=== PATIENT | female | born 1970 | race Caucasian/White ===

== ENCOUNTER 2021-10-07 12:09 | Emergency (ER) | payer SELFPAY ==
[2021-10-07 12:13] VITALS: PULSE 102; RESP 20; TEMP 36.6; O2SAT 95; BMI 32.3
--- NOTE | 2021-10-07 12:21 | XRR_ITS ---
PROCEDURE INFORMATION: Exam: XR Chest Exam date and time: 10/07/2021 12:33 PM Age: 51 years old Clinical indication: Pain; Angina pectoris; Additional info: Chest pain TECHNIQUE: Imaging protocol: XR of the chest. Views: 1 view. Total images: 1 COMPARISON: No relevant prior studies available. FINDINGS: Lungs: Unremarkable. No consolidation. Pleural spaces: Unremarkable. No pleural effusion. No pneumothorax. Heart/Mediastinum: Unremarkable. No cardiomegaly. Bones/joints: Unremarkable. Soft tissues: Small round density projecting just beneath the brittney felt to represent artifact external to the patient. A small foreign body/BB cannot be excluded. XR/XR chest 1V portable [id number] IMPRESSION: 1. Small round density projecting just beneath the brittney felt to represent artifact external to the patient. A small foreign body/BB cannot be excluded. 2. No acute cardiopulmonary process.
--- NOTE | 2021-10-07 12:22 | ECG_ITS ---
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 Measurements Intervals [place] Rate: 103 P: 60 KS: 135 QRS: 38 QRSD: 83 T: 41 QT: 336 QTc: 441 Interpretive Statements SINUS TACHYCARDIA POSSIBLE LEFT ATRIAL ENLARGEMENT [-0.1mV P-WAVE IN V1/V2] POSSIBLE RIGHT VENTRICULAR CONDUCTION DELAY [RSR (QR) IN V1/V2] ABNORMAL RHYTHM ECG No previous ECG available for comparison Electronically Signed On 10-07-2021 16:16:23 CDT by Kane Denis M.D. [id number]
--- NOTE | 2021-10-07 14:22 | ECG_ITS ---
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 Measurements Intervals [place] Rate: 75 P: 66 GA: 150 QRS: 40 QRSD: 82 T: 49 QT: 372 QTc: 417 Interpretive Statements SINUS RHYTHM Compared to ECG 10/07/2021 12:30:57 Sinus tachycardia no longer present Electronically Signed On 10-07-2021 16:16:55 CDT by Kane Denis M.D. [id number]
[2021-10-07 14:35] LABS: Basophils # 0.1 10^3/uL (0.0-0.1); Basophils % 0.6 %; Eosinophils # 0.2 10^3/uL (0.0-0.8); Eosinophils % 1.8 %; Hematocrit 48.1 % (37.0-47.0); Hemoglobin 15.6 g/dL (11.5-15.3); Lymphocytes # 2.8 10^3/uL (0.8-4.8); Lymphocytes % 21.2 %; Mean Corpuscular HGB Conc 32.4 g/dL (30.0-36.0); Mean Corpuscular Hemoglobin 31.8 pg (28.0-34.0); Mean Corpuscular Volume 98.2 fl (81-99); Mean Platelet Volume 10.1 fL (7.4-10.4); Monocytes # 1.1 10^3/uL (0.2-0.9); Neutrophils # 8.89 10^3/uL (1.8-7.7); Neutrophils % 68.1 %; Nucleated Red Blood Cells % 0 %; Platelet Count 418 10^3/cmm (130-400); Red Cell Distribution Width 12.8 % (12.1-15.1); White Blood Count 13.1 10^3/uL (4.0-10.0)
[2021-10-07 14:47] LABS: Protein Urine Neg (Negative); Urine Appearance Cloudy (CLEAR); Urine Color Amber (Yellow); pH Urine 5 (5-7)
--- NOTE | 2021-10-07 14:47 | CTR_ITS ---
PROCEDURE INFORMATION: Exam: CT Abdomen And Pelvis Without Contrast Exam date and time: 10/07/2021 3:08 PM Age: 51 years old Clinical indication: Abdominal pain; Epigastric; Prior surgery; Surgery type: Tubal , gb; Additional info: Epigastric pain x 4 days. Loss of appetite. TECHNIQUE: Imaging protocol: Computed tomography of the abdomen and pelvis without contrast. Radiation optimization: All CT scans at this facility use at least one of these dose optimization techniques: automated exposure control; mA and/or kV adjustment per patient size (includes targeted exams where dose is matched to clinical indication); or iterative reconstruction. COMPARISON: CR XR chest 1V portable [id number] 10/07/2021 12:33 PM RADIATION DOSE METRICS: Total DLP (mGy-cm): 1803.34 FINDINGS: Lungs: Linear scarring-atelectasis both lung bases. Diaphragm: Probable tiny hiatal hernia. Mild distal esophageal wall thickening. This may represent mild esophagitis. Correlation with esophagram/upper GI or endoscopy may be helpful. Liver: No obvious cirrhosis. Calcified hepatic granuloma. Gallbladder and bile ducts: Cholecystectomy clips. No abnormal bile duct dilatation. Pancreas: Normal. No ductal dilation. Spleen: Normal size.. Adrenal glands: Normal. No mass. Kidneys and ureters: No obstructing calculus. No hydronephrosis. Stomach and bowel: Small amount of fecal retention. No obvious bowel dilatation, pneumatosis or suspicious bowel wall thickening however assessment is limited due to lack of contrast. Colonic diverticulosis. Appendix: Normal appendix. Intraperitoneal space: Unremarkable. No free air. No significant fluid collection. Vasculature: No abdominal aortic aneurysm. Lymph nodes: No enlarged lymph nodes. Urinary bladder: Unremarkable as visualized. Reproductive: Unremarkable as visualized. Bones/joints: There is grade 1 L4-L5 spondylolisthesis with moderate-severe disc space loss and regional facet arthropathy. Although this finding is probably chronic, clinical correlation/comparison prior study may be helpful. Moderate L5-S1 disc degeneration is also present. Soft tissues: No acute findings. CT/CT abdomen pelvis wo con [id number] IMPRESSION: 1. Esophageal findings as above. 2. Vertebral findings as above. 3. Colonic diverticulosis without diverticulitis or other acute bowel findings. Somewhat limited exam due to lack of contrast.
[2021-10-07 14:48] LABS: Bilirubin Urine Neg (Negative); Blood Urine 2+ (Negative); Glucose Urine UA Norm (Normal); Ketones Urine 1+ (Negative); Leukocyte Esterase Urine 1+ (Negative); Nitrate Urine Positive (Negative); Urobilinogen Urine 1 mg/dL (Negative)
[2021-10-07 14:49] LABS: Add Urine Culture? Yes; Add Urine Microscopic? YES; Bacteria Urine 4+ /hpf; RBC Urine 0-4 /hpf (0-2); Squamous Epithelial Cell Urine 15-25 /hpf (0-5)
--- NOTE | 2021-10-07 14:49 | W.ED.ABDPA2 ---
HPI - Abdominal Pain General: Chief Complaint: Abdominal Pain Stated Complaint: CP Time Seen by Provider: 10/07/21 14:22 Source: patient Mode of arrival: ambulatory Limitations: no limitations History of Present Illness: This patient presents to our emergency department by private vehicle. She states she is here because of persistent upper abdominal pain. She states that pain has been present approximately 5 days but she does not like coming to the hospital so therefore the delay. She states that she noted the increasing pain after eating pizza as best she can recall. She states that she has been unsuccessful in eating any solid food. She states she is attempted to drink some Dr. Peppers but she cannot tolerate that and throws it up. She states she has been sipping on some Sprite which she tolerates a bit more successfully. She is having any chest pain or shortness of breath per se but the pain is predominantly in her epigastric region and seems to be right behind her lower sternum. It does not seem to radiate. Is not ripping in tearing but just but steady boring type of uncomfortable pain. She states that she is had looser stools than normal but no blood in her stools. There is a question whether the stools are darker than usual. She does not drink alcohol but does smoke tobacco. She does have a history of gastroesophageal reflux and takes Protonix on a periodic basis. She denies any known exposure to infectious disease. She denies any fevers or chills. No history of cardiac disease that she is aware of. She does not take nonsteroidals. No history of similar symptoms or if issues with dysphagia or swallowing difficulties. MD elicited complaint: abdominal pain Quality: aching Radiation: none Migration to: no migration Exacerbating factors: eating Associated Symptoms: Reports change in bowel habits and vomiting; Denies chills, coffee ground emesis, dysuria, fever(s), hematochezia and hematemesis Review of Systems Const: Denies: fever(s), chills or body aches Eyes: Denies: change in vision or blurry vision ENMT: Denies: throat pain or odynophagia Card: Denies: chest pain, palpitations or irregular heart rhythm Resp: Denies: dyspnea, productive cough or non-productive cough GI: Reports: abdominal pain, vomiting and change in bowel habits; Denies: hematemesis, coffee ground emesis or hematochezia : Denies: flank pain, difficulty voiding, dysuria or urinary frequency Musc: Denies: neck pain, back pain, extremity pain or extremity swelling Skin/Breast: Denies: rash or pruritus Neuro: Denies: headache(s), numbness in extremities or weakness in extremities Lorenzo/Lymph: Denies: easy bruising or easy bleeding Physical Exam Narrative: EXAM NARRATIVE: Since makes good eye contact she is alert and in no acute distress and appears to be comfortable. Const: COMMON NORMALS: no acute distress, patient oriented x3 and alert GENERAL APPEARANCE: cooperative and comfortable NUTRITIONAL APPEARANCE: overweight HENMT: COMMON NORMALS: normocephalic, Normal nasal mucous membranes and turbinates present, moist oral mucous membranes and oropharynx normal HEAD & SCALP: normocephalic NOSE: Normal nasal mucous membranes and turbinates present Eye: COMMON NORMALS: Equal, round and reactive pupils present, EOMs intact bilaterally and conjunctivae normal CONJUNCTIVA: Yes conjunctivae normal PUPIL: Yes Equal, round and reactive pupils present Neck/C-Spine: COMMON NORMALS: full ROM, no lymphadenopathy, supple, no meningeal signs and no JVD Chest: COMMONS NORMALS: normal inspection of the chest and normal palpation of entire chest wall Resp: COMMON NORMALS: normal respiratory effort, No retractions, No use of accessory muscles, clear to auscultation bilaterally and percussion normal AUSCULTATION: clear to auscultation bilaterally PERCUSSION: percussion normal Cardio: COMMON NORMALS: no JVD, regular rate, regular rhythm, No murmurs present (Cardio) and Peripheral pulses 2+ throughout RATE: regular rate RHYTHM: regular rhythm PERIPHERAL PULSES: Peripheral pulses 2+ throughout GI: COMMON NORMALS: No hepatosplenomegaly present, no masses and no bruits PALPATION: Yes No hepatosplenomegaly present OTHER: Abdominal examination is remarkable for tenderness in the very proximal epigastric subxiphoid region. There is no rebound or guarding. There is minimal left upper quadrant tenderness. No other masses tenderness etc. : COMMON NORMALS: Yes no CVA tenderness BLADDER/KIDNEY EXAM: Yes no CVA tenderness Back/Pelvis: COMMON NORMALS: no CVA tenderness, thoracic and lumbar spine normal to inspection, no thoracic nor lumbar tenderness and thoraco-lumbar ROM normal Extremity: COMMON NORMALS: normal to inspection, full ROM, capillary refill normal, no calf tenderness and no pedal edema Neuro: COMMON NORMALS: patient oriented x3, moves all extremities, no focal motor deficits and no sensory deficits noted SENSORIUM/ORIENTATION: Yes alert MENINGEAL SIGNS: Yes no meningeal signs GAIT: Yes Normal gait present Psych: COMMON NORMALS: mental status grossly normal Skin: COMMON NORMALS: no rashes or lesions noted, turgor normal and no jaundice GENERAL SKIN EXAM: no rashes or lesions noted and turgor normal Course Reevaluation(s): Reevaluation #1: Imaging studies noted. Findings suggestive of esophagitis however she has a slight elevation initial troponin we will wait on second troponin. Time: 16:06 Reevaluation #2: Patient states subjectively she is improving. Her repeat troponin is falling which makes ACS unlikely given following troponin and no acute changes on EKG or other worrisome findings. CT scan shows findings suggestive of distal esophagitis. Nothing at this time to suggest any other issues such as occult great vessel disease, Boerhaave syndrome etc. We will likely place her on Carafate as well as a PPI and an H2 mirian for period time to see if we can get her symptoms under control. She also notes that she has transaminase elevations as well as what appears to be a lower urinary tract infection. Time: 17:11 Vital Signs: Vital signs: Vital Signs Temperature 97.8 F 10/07/21 15:18 Pulse Rate 102 H 10/07/21 15:18 Respiratory Rate 20 H 10/07/21 15:18 Pulse Oximetry 95 10/07/21 15:18 MDM - Abdominal Pain Medical Decision Making Patient who presents with 5-day history of increasing epigastric and substernal discomfort and inability eat solid foods. No history of foreign body ingestion or other concerns. Her work-up today reveals evidence suggestive of esophagitis. She has significantly clinically and subjectively improved after treatment in the emergency department. No other findings to suggest other worrisome condition such as ACS, esophageal rupture rupture or obstruction, great vessel disease etc. at this time. She has a mild elevation in transaminases but this is likely event representative of her current GI symptoms. The patient is improved and stable to be discharged. She will also have a 3-day treatment for her lower urinary tract infection. She acknowledges our discussions and return precaution discussion as well Medical Records I reviewed the patient's medical records. Lab Data I reviewed the patient's lab results. : 10/07/21 14:10 10/07/21 14:10 Labs/Radiology: Radiology Impressions Chest X-Ray 10/07/21 12:21 IMPRESSION: 1. Small round density projecting just beneath the brittney felt to represent artifact external to the patient. A small foreign body/BB cannot be excluded. 2. No acute cardiopulmonary process. Abdomen/Pelvis CT 10/07/21 14:47 IMPRESSION: 1. Esophageal findings as above. 2. Vertebral findings as above. 3. Colonic diverticulosis without diverticulitis or other acute bowel findings. Somewhat limited exam due to lack of contrast. Laboratory Results WBC 13.1 10^3/uL (4.0-10.0) H 10/07/21 14:10 RBC 4.90 10^6/uL (4.1-5.3) 10/07/21 14:10 Hgb 15.6 g/dL (11.5-15.3) H 10/07/21 14:10 Hct 48.1 % (37.0-47.0) H 10/07/21 14:10 MCV 98.2 fl (81-99) 10/07/21 14:10 MCH 31.8 pg (28.0-34.0) 10/07/21 14:10 MCHC 32.4 g/dL (30.0-36.0) 10/07/21 14:10 RDW 12.8 % (12.1-15.1) 10/07/21 14:10 Plt Count 418 10^3/cmm (130-400) H 10/07/21 14:10 MPV 10.1 fL (7.4-10.4) 10/07/21 14:10 Neut % (Auto) 68.1 % 10/07/21 14:10 Lymph % (Auto) 21.2 % 10/07/21 14:10 Tyler % (Auto) 8.0 % 10/07/21 14:10 Eos % (Auto) 1.8 % 10/07/21 14:10 Baso % (Auto) 0.6 % 10/07/21 14:10 Neut # (Auto) 8.89 10^3/uL (1.8-7.7) H 10/07/21 14:10 Lymph # (Auto) 2.8 10^3/uL (0.8-4.8) 10/07/21 14:10 Tyler # (Auto) 1.1 10^3/uL (0.2-0.9) H 10/07/21 14:10 Eos # (Auto) 0.2 10^3/uL (0.0-0.8) 10/07/21 14:10 Baso # (Auto) 0.1 10^3/uL (0.0-0.1) 10/07/21 14:10 Nucleated RBC % (auto) 0 % 10/07/21 14:10 Nucleated RBCs # 0.0 /100WBC 10/07/21 14:10 Sodium 139 mmol/L (136-145) 10/07/21 14:10 Potassium 3.2 mmol/L (3.5-5.1) L 10/07/21 14:10 Chloride 97 mmol/L (98-107) L 10/07/21 14:10 Carbon Dioxide 30 mmol/L (22-29) H 10/07/21 14:10 Anion Gap 15.2 (5-19) 10/07/21 14:10 BUN 23 mg/dL (6-20) H 10/07/21 14:10 Creatinine 0.7 mg/dL (0.5-0.9) 10/07/21 14:10 GFR Calculation 88.6 mL/min (90-130) L 10/07/21 14:10 Glucose 111 mg/dL (65-115) 10/07/21 14:10 Calculated Osmolality 292 mOsm/kg (285-295) 10/07/21 14:10 Calcium 9.8 mg/dL (8.5-10.5) 10/07/21 14:10 Total Bilirubin 0.7 mg/dL (0.15-1.2) 10/07/21 14:10 AST 79 U/L (0-32) H 10/07/21 14:10 ALT 45 U/L (0-33) H 10/07/21 14:10 Alkaline Phosphatase 123 IU/L (35-105) H 10/07/21 14:10 Troponin T Baseline 12 ng/L (0-10) H 10/07/21 14:10 Troponin T 120 Minute 11.61 ng/L (0-10) H 10/07/21 16:28 Delta Troponin T -0.39 ABS# (0-10) L 10/07/21 16:28 Total Protein 7.9 g/dL (6.6-8.7) 10/07/21 14:10 Albumin 4.4 g/dL (3.5-5.2) 10/07/21 14:10 Globulin 3.5 g/dL (1.3-4.6) 10/07/21 14:10 Lipase 29 U/L (13-60) 10/07/21 14:10 Urine Color Georgie (Yellow) 10/07/21 14:10 Urine Appearance Cloudy (CLEAR) 10/07/21 14:10 Urine pH 5 (5-7) 10/07/21 14:10 Ur Specific Chauncey 1.020 (1.005-1.030) 10/07/21 14:10 Urine Protein Neg (Negative) 10/07/21 14:10 Urine Glucose (UA) Norm (Normal) 10/07/21 14:10 Urine Ketones 1+ (Negative) H 10/07/21 14:10 Urine Blood 2+ (Negative) H 10/07/21 14:10 Urine Nitrate Positive (Negative) H 10/07/21 14:10 Urine Bilirubin Neg (Negative) 10/07/21 14:10 Urine Urobilinogen 1 mg/dL (Negative) H 10/07/21 14:10 Ur Leukocyte Esterase 1+ (Negative) H 10/07/21 14:10 Urine RBC 0-4 /hpf (0-2) H 10/07/21 14:10 Urine WBC 10-15 /hpf (0-5) H 10/07/21 14:10 Ur Squamous Epith Cells 15-25 /hpf (0-5) H 10/07/21 14:10 Amorphous Sediment Not Reportable 10/07/21 14:10 Urine Bacteria 4+ /hpf (NONE) H 10/07/21 14:10 EKG Data EKG 1: I personally reviewed and interpreted this EKG as follows: EKG interpretation time: 12:33 Interpretation: Resting EKG reveals a borderline sinus tachycardia 103 bpm. Normal [place] interval. Normal QRS duration. Normal QTC. No acute ST-T wave changes noted. No prior tracing within our system EKG 2: I personally reviewed and interpreted this EKG as follows: Interpretation: Second EKG this visit reveals normal sinus rhythm of 75 bpm. Normal intervals and normal axis and normal QRS duration. No acute ST-T wave changes. Change compared with previous tracing is that this 1 is now normal sinus rhythm compared with borderline sinus tachycardia the initial tracing. Discharge Plan Discharge Patient Disposition: Home Clinical Impression: Esophagitis, Transaminitis, Urinary tract infection Condition: Stable Prescriptions: New Carafate 1 gram tablet 1 g PO TID 28 Days Qty: 84 0RF Pepcid 20 mg tablet 20 mg PO BID 28 Days Qty: 56 0RF pantoprazole [Protonix] 40 mg tablet,delayed release (DR/EC) 40 mg PO DAILY 28 Days Qty: 30 0RF nitrofurantoin monohyd/m-cryst [Macrobid] 100 mg capsule 100 mg PO BID 3 Days Qty: 6 0RF Rx Instructions: must administer with a meal/food Discharge Orders: Discharge ED (Routine); Ordered 10/07/21 Ordered By: Wander Flores Discharge Diet: Full LIquid Discharge Activity: Resume usual activity Patient Instructions: Opioid Safety Activity Restrictions/Additional Instructions: Take the new medications we have prescribed. Avoid carbonated beverages, any kind of anti-inflammatory medicine such as ibuprofen Aleve etc. Start with full liquid diet to include sports drinks water protein drinks etc. and then as you improve slowly advance your diet to a more regular diet. If your symptoms do not continue to improve, worsen any time or new symptoms develop return to this or the nearest emergency department for reevaluation. Coding Level of Care Code ED Duplication Specialist for Swetha Fwmanny Exam Comprehensive
[2021-10-07 14:56] LABS: Troponin(5th) Baseline 12 ng/L (0-10)
[2021-10-07 14:59] LABS: Alanine Aminotransferase 45 U/L (0-33); Albumin Level 4.4 g/dL (3.5-5.2); Alkaline Phosphatase 123 IU/L (35-105); Anion Gap 15.2 (5-19); Aspartate Amino Transferase 79 U/L (0-32); Blood Urea Nitrogen 23 mg/dL (6-20); Calcium 9.8 mg/dL (8.5-10.5); Carbon Dioxide 30 mmol/L (22-29); Chloride 97 mmol/L (98-107); Globulin 3.5 g/dL (1.3-4.6); Glomerular Filtration Rate 88.6 mL/min (90-130); Glucose 111 mg/dL (65-115); Osmolality Calculated 292 mOsm/kg (285-295); Potassium 3.2 mmol/L (3.5-5.1); Sodium 139 mmol/L (136-145); Total Bilirubin 0.7 mg/dL (0.15-1.2); Total Protein 7.9 g/dL (6.6-8.7)
[2021-10-07 15:10] LABS: Lipase 29 U/L (13-60)
[2021-10-07 15:18] VITALS: PULSE 102; RESP 20; TEMP 36.6; O2SAT 95
[2021-10-07] MEDS: pantoprazole 40 mg SDV IVP (15:19)
[2021-10-07] MEDS: fentaNYL 50 mcg/mL INJ 2mL IVP (15:23)
[2021-10-07 16:53] LABS: Troponin 5 2HR 11.61 ng/L (0-10)
[2021-10-07 16:58] LABS: Troponin 5 2HR Delta -0.39 ABS# (0-10)
[2021-10-07] MEDS: sucralfate 1 gm/10 mL Oral Liq UDC PO (17:10)
[2021-10-07 18:05] VITALS: BP 144/101; PULSE 91; RESP 16; O2SAT 95
== END 2021-10-07 18:10 | disposition home or self-care (01) ==
PROVIDERS: Physician Assistant; Emergency Provider Emergency Medicine
DX: K20.90 Esophagitis, unspecified without bleeding (principal); R74.01 Elevation of levels of liver transaminase levels; N39.0 Urinary tract infection, site not specified
CPT/HCPCS: 71045; 74176; 80053; 81001; 83690; 84484; 85025; 87077; 87086; 87186; 93005; 96374; 96375; 99285; C9113; J3010

== ENCOUNTER 2022-02-15 19:36 | Inpatient (IN) | payer MEDICAID, SELFPAY ==
[2022-02-15 20:50] VITALS: PULSE 87; RESP 16; TEMP 36.9; O2SAT 95; BMI 37.5
--- NOTE | 2022-02-15 22:39 | ED_ITS ---
HPI - General Adult General: Chief complaint: Psychiatric Symptoms Stated complaint: Phy Evaluation Time Seen by Provider: 02/15/22 22:04 History of Present Illness: HPI: [51]yo patient w/ hx of depression BIBA for worsening depression and auditory hallucination. Patient tells me that she has had worsening depression and has been hearing voices. On arrival, the patient is AAOx3 and cooperative with my evaluation. No focal complaints of chest pain, shortness of breath, palpitations, N/V, focal GI/ complaints. Currently denies HI. No complaints of hallucinations. Onset: acute Duration: ongoing Location: home Severity: severe Associated symptoms: Deny chest pain, dyspnea, nausea, rash, palpitations or vomiting Review of Systems Const: Denies: fever(s) or chills Eyes: Denies: change in vision ENMT: Denies: mouth pain Card: Denies: chest pain or palpitations Resp: Denies: dyspnea or non-productive cough GI: Denies: abdominal pain, nausea, vomiting or diarrhea : Denies: dysuria Musc: Denies: extremity pain Skin/Breast: Denies: rash or new lesions Neuro: Denies: weakness in extremities Psych: Reports: depression and suicidal ideation Lorenzo/Lymph: Denies: easy bruising PFSH ED PFSH: Medical History (Updated 02/15/22 @ 22:43 by Linda Hopkins MD) Depression Physical Exam Const: COMMON NORMALS: alert HENMT: COMMON NORMALS: atraumatic HEAD & SCALP: atraumatic MOUTH: moist mucous membranes not abnormal Eye: COMMON NORMALS: EOMs intact bilaterally and conjunctivae normal CONJUNCTIVA: Yes conjunctivae normal Neck/C-Spine: COMMON NORMALS: full ROM and supple Resp: COMMON NORMALS: normal respiratory effort and clear to auscultation bilaterally AUSCULTATION: clear to auscultation bilaterally Cardio: COMMON NORMALS: regular rate RATE: regular rate GI: COMMON NORMALS: Soft to palpation and non-tender PALPATION: Yes Soft to palpation Extremity: COMMON NORMALS: full ROM Neuro: SENSORIUM/ORIENTATION: Yes alert MOTOR EXAM: No Abnormal motor strength present and Other motor observations present (no focal motor deficits) Psych: COMMON NORMALS: speech normal SPEECH: Yes normal speech MOOD & AFFECT: Yes depressed mood Course Vital Signs: Vital signs: Vital Signs Temperature 98.5 F 02/15/22 20:50 Pulse Rate 87 09/13/22 20:50 Respiratory Rate 16 02/15/22 20:50 Pulse Oximetry 95 02/15/22 20:50 Oxygen Delivery Me thod 02/15/22 20:50 MDM - General Adult Medical Decision Making [51]yo patient w/ hx of depression presenting for SI and auditory hallucina tions. HDS, exam within normal limit Thoughts are linear and organized, and the patient has no VH, or HI. Clinically the patient displays no overt toxidrome; they are well appearing, with low suspicion for toxic ingestion given history and exam. Symptoms unlikely 2/2 anemia, hypothyroidism, infection, or ICH. Workup: CBC, CMP, Lipase, salicylate/tylenol, serum ethanol, UDS Lab findings: wnl [11:30pm] On reassessment, labs and workup wnl. Patient is hemodynamically stable with no acute medical complaints. Case discussed with psychiatric provider Dr. Doan at [facility] psych inpatient with recommendation for admission Disposition: Psych Discharge Plan Discharge Condition: Stable Prescriptions: No Action No Known Home Medications Coding Level of Care Code ED It Application Development Manager for Chg Fwd Exam Comprehensive
[2022-02-15 22:55] VITALS: BP 138/88; PULSE 88; RESP 16; TEMP 37.1; O2SAT 100
[2022-02-15 23:01] LABS: Amphetamines Screen Urine Positive (Negative); Barbiturates Screen Urine Negative (Negative); Benzodiazepines Screen Urine Negative (Negative); Cocaine Screen Urine Negative (Negative); Opiate Screen Urine Negative (Negative); PCP Screen Urine Negative (Negative); THC Screen Urine Positive (Negative)
[2022-02-15 23:10] LABS: Glucose Urine UA Norm (Normal); Protein Urine Neg (Negative); Urine Color Yellow (Yellow); pH Urine 6 (5-7)
[2022-02-15 23:11] LABS: Add Urine Microscopic? YES; Bilirubin Urine Neg (Negative); Blood Urine Neg (Negative); Ketones Urine 1+ (Negative); Leukocyte Esterase Urine Negative (Negative); Nitrate Urine Positive (Negative); Urobilinogen Urine Norm (Negative)
[2022-02-15 23:17] LABS: Add Urine Culture? Yes; Bacteria Urine 4+ /hpf; Calcium Oxalate Crystals Urine 40-55 /hpf; RBC Urine 0-4 /hpf (0-2); Squamous Epithelial Cell Urine 0-4 /hpf (0-5)
[2022-02-15 23:37] VITALS: BP 140/100; PULSE 88; RESP 20; TEMP 37.1; O2SAT 100
[2022-02-16] MEDS: nicotine 4 mg lozenge MUCOUS MEM (00:20)
[2022-02-16] MEDS: hyDROXYzine 25 mg Capsule 50 MG PO (00:23)
[2022-02-16] MEDS: trazodone 50 mg Tablet PO ×2 (00:23→23:05)
[2022-02-16] MEDS: calcium carbonate 500 mg Chew Tablet PO (00:43)
--- NOTE | 2022-02-16 00:43 | PC.NURSE ---
Trazodone 50mg and Vistaril 50mg given for sleep and anxiety.
--- NOTE | 2022-02-16 01:10 | PC.NURSE ---
Patient UDS was positive for marijuana and amphetamines but states she hasn't taken that for over a year.
[2022-02-16 06:00] VITALS: BP 105/70; PULSE 76; RESP 17; TEMP 36.4; O2SAT 94
[2022-02-16 07:36] LABS: Basophils # 0.1 10^3/uL (0.0-0.1); Basophils % 0.9 %; Eosinophils # 0.3 10^3/uL (0.0-0.8); Eosinophils % 2.9 %; Hematocrit 41.4 % (37.0-47.0); Hemoglobin 12.9 g/dL (11.5-15.3); Lymphocytes # 4.1 10^3/uL (0.8-4.8); Lymphocytes % 45.1 %; Mean Corpuscular HGB Conc 31.2 g/dL (30.0-36.0); Mean Corpuscular Hemoglobin 31.9 pg (28.0-34.0); Mean Corpuscular Volume 102.2 fl (81-99); Mean Platelet Volume 9.6 fL (7.4-10.4); Monocytes # 0.8 10^3/uL (0.2-0.9); Neutrophils # 3.77 10^3/uL (1.8-7.7); Neutrophils % 41.8 %; Nucleated Red Blood Cells % 0 %; Platelet Count 366 10^3/cmm (130-400); Red Blood Count 4.05 10^6/uL (4.1-5.3); Red Cell Distribution Width 12.1 % (12.1-15.1)
[2022-02-16 07:50] LABS: Alanine Aminotransferase 10 U/L (0-33); Albumin Level 2.9 g/dL (3.5-5.2); Alkaline Phosphatase 78 U/L (35-105); Anion Gap 14.9 (5-19); Aspartate Amino Transferase 12 U/L (0-32); Blood Urea Nitrogen 8 mg/dL (6-20); Calcium 9.1 mg/dL (8.5-10.5); Carbon Dioxide 25 mmol/L (22-29); Chloride 105 mmol/L (98-107); Globulin 3.2 g/dL (1.3-4.6); Glomerular Filtration Rate 105.8 mL/min (90-130); Glucose 91 mg/dL (65-115); Osmolality Calculated 292 mOsm/kg (285-295); Sodium 142 mmol/L (136-145); Total Bilirubin 0.2 mg/dL (0.15-1.2); Total Protein 6.1 g/dL (6.6-8.7)
[2022-02-16 07:51] LABS: Acetaminophen < 5.0 ug/mL (10-30); Salicylate < 0.3 mg/dL (3-10)
[2022-02-16 07:53] LABS: Potassium 2.9 mmol/L (3.5-5.1)
--- NOTE | 2022-02-16 07:55 | PC.NURSE ---
LAB CONTACTED THIS NURSE WITH CRITICAL LAB K+ OF 2.9. CALL TO DR VILLASENOR TO BE MADE AWARE
[2022-02-16] MEDS: pantoprazole DR 40 mg Tablet PO (09:35)
[2022-02-16] MEDS: OLANZapine 5 mg ODT PO (13:29)
[2022-02-16] MEDS: nicotine 21 mg Patch 1 PATCH TRANSDERMA (13:29)
[2022-02-16 14:00] VITALS: BP 102/65; PULSE 83; RESP 16; TEMP 36.6; O2SAT 93
[2022-02-16] MEDS: potassium chloride ER 20 mEq Tablet PO (14:45)
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
[2022-02-16 22:00] VITALS: BP 132/78; PULSE 78; RESP 16; TEMP 36.4; O2SAT 96
[2022-02-17 06:00] VITALS: BP 137/84; PULSE 76; RESP 17; TEMP 36.4; O2SAT 94
[2022-02-17] MEDS: pantoprazole DR 40 mg Tablet PO (09:42)
[2022-02-17] MEDS: fluoxetine 20 mg Capsule PO (09:42)
--- NOTE | 2022-02-17 09:42 | PC.NURSE ---
Nursing Behavioral Assessment Patient sleeping in bed. Patient awoke upon my arrival. She states she slept okay and that she is having back pain rated at a 7 on a 0-10 scale. She denies any auditory or visual hallucinations. Also denies any suicidal or homicidal thoughts. Patient states she is not anxious this morning and had a bowel movement yesterday. She also states she would really like to go home because she needs to smoke and have a Dr. Maurer.
[2022-02-17] MEDS: ibuprofen 600 mg Tablet PO ×2 (10:20→10:28)
[2022-02-17] MEDS: nicotine 21 mg Patch 1 PATCH TRANSDERMA (10:22)
[2022-02-17] MEDS: hyDROXYzine 25 mg Capsule 50 MG PO (10:26)
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
[2022-02-17 12:31] VITALS: BP 137/84; PULSE 76; RESP 17; TEMP 36.4; O2SAT 94
[2022-02-17 14:00] VITALS: BP 110/75; PULSE 92; RESP 18; TEMP 36.8; O2SAT 100
== END 2022-02-17 15:20 | disposition home or self-care (01) | DRG 885 ==
LOC: ER 22:44 → NP 02-16 00:37
PROVIDERS: Family Medicine; Admitting Provider Psychiatry & Neurology Psychiatry; Emergency Provider Emergency Medicine; Visit Provider Psychiatry & Neurology Psychiatry
DX: F33.9 Major depressive disorder, recurrent, unspecified (principal); R45.851 Suicidal ideations; F43.10 Post-traumatic stress disorder, unspecified; J44.9 Chronic obstructive pulmonary disease, unspecified; F17.210 Nicotine dependence, cigarettes, uncomplicated; Z62.810 Personal history of physical and sexual abuse in childhood; Z62.811 Personal history of psychological abuse in childhood; Z81.8 Family history of other mental and behavioral disorders; Z81.4 Family history of other substance abuse and dependence; Z63.4 Disappearance and death of family member
CPT/HCPCS: 36415; 80053; 80306; 80307; 81001; 85025; 87077; 87086; 87186; 97150; 97165; 99285

== ENCOUNTER 2022-08-01 13:56 | Outpatient (CLI) | payer BC, MEDICAID, SELFPAY ==
--- NOTE | 2022-08-01 14:18 | CT_ITS ---
WS: [id number] LDCT LUNG CANCER SCREENING HISTORY: TOBACCO USE TECHNIQUE: Axial imaging performed from the apices to 1 cm below the costophrenic angles. Coronal and sagittal reformats are submitted with axial MIP series. All CT scans at [facility] use at least one of these dose optimization techniques: automated exposure control; mA and/or kV adjustment per patient size (includes targeted exams where dose is matched to clinical indication); or iterativ e reconstruction. DLP: 79.87 mGy.cm DIvol: Mean CTDIvol: 1.60 (mGy) COMPARISON: None available. Diagnostic quality: Satisfactory Lungs: Mild hyperexpansion. No pulmonary nodule. No endobronchial lesions. Heart: Normal size heart with no pericardial effusion.. Other findings: Prior cholecystectomy. No adrenal mass. Metallic foreign body embedded in the soft ti ssues over the upper thorax between the clavicular heads. Foreign body measures about [address]/CT lung screening [id number] IMPRESSION: LUNG-RADS: 1-Negative FOLLOW UP: 12 Month: Continue annual screening with LDCT OTHER FINDINGS (S MODIFIER): None.
--- NOTE | 2022-08-01 14:23 | MM_ITS ---
WS: [id number] BILATERAL 3D TOMOSYNTHESIS DIGITAL SCREENING MAMMOGRAPHY WITH CAD CLINICAL INFORMATION: SCREENING HISTORY: Screening mammogram. No current complaints. COMPARISON: None. TECHNIQUE: Bilateral CC and MLO views. FINDINGS: Scattered fibroglandular densities bilaterally. No suspicious focal mass, asymmetry, calcifications, or architectural distortion. No evidence of malignancy. Intramammary lymph nodes upper outer LEFT teodora ast. MM/[place] [id number] IMPRESSION: BI-RADS: 2-Benign FOLLOW UP: 1 Year Follow-up Recommend return to annual screening mammography.
== END 2022-08-01 13:57 | disposition home or self-care (01) ==
PROVIDERS: PCP Family Medicine; Visit Provider Family Medicine
DX: Z12.2 Encounter for screening for malignant neoplasm of respiratory organs (principal); Z12.31 Encounter for screening mammogram for malignant neoplasm of breast; Z72.0 Tobacco use
CPT/HCPCS: 71271; 77063; 77067

== ENCOUNTER 2022-09-17 01:57 | Emergency (ER) | payer BC, MEDICAID, SELFPAY ==
[2022-09-17 02:06] VITALS: BP 142/98; PULSE 107; RESP 18; TEMP 36.9; O2SAT 93; BMI 37.5
--- NOTE | 2022-09-17 02:15 | CTR_ITS ---
PROCEDURE INFORMATION: Exam: CT Abdomen And Pelvis With Contrast Exam date and time: 09/17/2022 3:05 AM Age: 52 years old Clinical indication: Nausea and vomiting; Abdominal pain; Epigastric; Prior surgery; Surgery date: 6+ months; Surgery type: Cholecystectomy, ectopic ; Additional info: Upper abdominal pain, nausea vomiting TECHNIQUE: Imaging protocol: Computed tomography of the abdomen and pelvis with contrast. Radiation optimization: All CT scans at this facility use at least one of these dose optimization techniques: automated exposure control; mA and/or kV adjustment per patient size (includes targeted exams where dose is matched to clinical indication); or iterative reconstruction. Contrast material: OMNI 350; Contrast volume: 100 ml; Contrast route: INTRAVENOUS (IV); REPORTING DATA: Count of CT and Cardiac NM exams in prior 12 months: This patient has received 2 known CTs and 0 known cardiac nuclear medicine studies in the 12 months prior to the current study. COMPARISON: CT abdomen pelvis wo con [id number] 10/07/2021 3:08 PM RADIATION DOSE METRICS: Total DLP (mGy-cm): 971.09 FINDINGS: Mediastinal space: The marsh of the partially imaged distal esophagus appear markedly thickened (series 3, image 1). Diaphragm: Partially imaged small hiatal hernia. Liver: No focal intrahepatic lesions are seen. Gallbladder and bile ducts: The gallbladder has been removed. Pancreas: No intraparenchymal lesions are seen. No ductal dilation. Spleen: No intraparenchymal lesions are seen. No splenomegaly. Adrenal glands: Normal. No mass. Kidneys and ureters: No solid intraparenchymal soft tissue lesion. No hydronephrosis. Nonspecific heterogenous renal parenchyma, possibly related to prior infectious and or inflammatory insult, correlate clinically. Bilateral low attenuating renal cystic structures likely represent benign cysts. Stomach and bowel: No pathologic bowel dilatation. No obstruction. Colonic diverticula, no CT findings to suggest acute diverticulitis. Appendix: The appendix is not inflamed. Intraperitoneal space: No free air. No abnormal walled-off fluid collection. Vasculature: Atheromatous changes within the visualized portion of the aorta and its major branching vessels are within normal limits of variation for the patient's age. No abdominal aortic aneurysm. Lymph nodes: No pathologically enlarged lymph nodes. Urinary bladder: Unremarkable as visualized. Reproductive: Unremarkable as visualized. Bones/joints: No acute fracture. [id number] degenerative changes of the partially imaged spine. Grade 1 anterolisthesis of L4 in relation to L5. Soft tissues: Very small fat containing umbilical hernia. CT/CT abdomen pelvis w con* [id number] IMPRESSION: 1. Small hiatal hernia. 2. The marsh of the partially imaged distal esophagus appear markedly thickened, differential includes chronic inflammatory changes secondary to GERD and infectious and or inflammatory process however other etiologies including neoplasm although less likely cannot be excluded. Correlate and follow-up as clinically indicated. 3. Other chronic/incidental findings as described above. COMMENTS: Consistent with the [employer]'s Incidental Findings Committee white paper (J Am Segundo Radiol 2018): Any incidental renal lesion less than 1 cm or classified as too small to characterize, or any incidental cystic renal lesion characterized as simple-appearing, is likely benign. No follow-up imaging is recommended for these lesions per consensus recommendations based on imaging criteria.
--- NOTE | 2022-09-17 02:17 | W.ED.ABDPA2 ---
Documented by User: DOREEN Álvarez 09/17/22 19:33 HPI - Abdominal Pain General: Chief Complaint: Nausea/Vomiting/Diarrhea Stated Complaint: n/v; blood Time Seen by Provider: 09/17/22 02:03 History of Present Illness: Patient is a 52-year-old female comes to the ED with abdominal pain, nausea vomiting. Symptoms started last night. Pain is located in the upper abdomen bilaterally. She rates the pain currently a 7 out of 10 and describes it as a burning type pain. Endorses nausea and vomiting and says that her symptoms get worse after she eats. Endorses having 1 episode of diarrhea. Patient states that 1 episode of emesis appeared dark brown and had the taste of blood. Patient has a history of GERD and takes Protonix. Denies any fevers, chills, bladder symptoms. Past surgical history of tubal ligation and cholecystectomy. Associated Symptoms: Reports diarrhea, nausea and vomiting; Denies chills, constipation, dysuria, fever(s), hematochezia and hematuria Review of Systems Const: Denies: fever(s), chills or fatigue Eyes: Denies: change in vision or eye discomfort ENMT: Denies: throat pain, odynophagia, nasal discharge or nasal congestion Card: Denies: chest pain, palpitations, edema, swelling of feet/ankles, dyspnea on exertion or orthopnea Resp: Denies: dyspnea, productive cough or non-productive cough GI: Reports: abdominal pain, nausea, vomiting and diarrhea; Denies: constipation or hematochezia : Denies: flank pain, dysuria or hematuria Musc: Denies: neck pain, back pain or extremity swelling Skin/Breast: Denies: rash or new lesions Neuro: Denies: headache(s), numbness in extremities or weakness in extremities PFS ED PFSH: Medical History Depression Major depressive disorder, recurrent, severe with psychotic features Nicotine dependence Has been referred to [facility] for smoking cessation assistance Psychiatric care Social History Smoking and tobacco status: current every day smoker cigarettes Years cigarettes smoked: 35 Quit status (tobacco): not considering quitting Second hand smoke exposure: Yes Smoking risk assessment/counseling performed?: No Alcohol intake: never Desire information about alcohol rehabilitation?: No Counseling given: No Desire information about substance/drug rehabilitation?: No Counseling given: No Physical Exam Const: COMMON NORMALS: patient oriented x3 and alert GENERAL APPEARANCE: cooperative HENMT: COMMON NORMALS: normocephalic HEAD & SCALP: normocephalic MOUTH: Normal oral and palatal mucosa present THROAT: posterior oropharynx normal and uvula midline Neck/C-Spine: COMMON NORMALS: supple GENERAL: Yes normal visual inspection Resp: COMMON NORMALS: normal respiratory effort, No retractions, No use of accessory muscles and clear to auscultation bilaterally AUSCULTATION: clear to auscultation bilaterally Cardio: COMMON NORMALS: regular rate, regular rhythm, S1 normal heart sound present, S2 normal heart sound present, No gallops present (Cardio), No clicks present (Cardio), No murmurs present (Cardio) and Peripheral pulses 2+ throughout RATE: regular rate RHYTHM: regular rhythm HEART SOUNDS: S1 normal heart sound present and S2 normal heart sound present PERIPHERAL PULSES: Peripheral pulses 2+ throughout GI: COMMON NORMALS: Normal to inspection, nondistended, normoactive bowel sounds present, Soft to palpation and no masses PALPATION: Yes Soft to palpation and Yes Tenderness to palpation present (GI) Details: LUQ and RUQ : COMMON NORMALS: Yes no CVA tenderness BLADDER/KIDNEY EXAM: Yes no CVA tenderness Back/Pelvis: COMMON NORMALS: no CVA tenderness Extremity: COMMON NORMALS: normal to inspection Neuro: COMMON NORMALS: patient oriented x3 SENSORIUM/ORIENTATION: Yes alert GAIT: Yes Normal gait present Skin: GENERAL SKIN EXAM: dry skin Course Vital Signs: Vital signs: Vital Signs Temperature 98.5 F 09/17/22 02:06 Pulse Rate 112 H 09/17/22 05:24 Respiratory Rate 18 09/17/22 02:06 Blood Pressure 142/98 09/17/22 02:06 Pulse Oximetry 90 09/17/22 05:24 Oxygen Delivery Me thod Room Air 09/17/22 03:39 MDM - Abdominal Pain Lab Data I reviewed the patient's lab results. 09/17/22 02:15 09/17/22 02:15 Labs/Radiology: Radiology Impressions Abdomen/Pelvis CT 09/17/22 02:15 IMPRESSION: 1. Small hiatal hernia. 2. The marsh of the partially imaged distal esophagus appear markedly thickened, differential includes chronic inflammatory changes secondary to GERD and infectious and or inflammatory process however other etiologies including neoplasm although less likely cannot be excluded. Correlate and follow-up as clinically indicated. 3. Other chronic/incidental findings as described above. COMMENTS: Consistent with the [employer]'s Incidental Findings Committee white paper (J Am Segundo Radiol 2018): Any incidental renal lesion less than 1 cm or classified as too small to characterize, or any incidental cystic renal lesion characterized as simple-appearing, is likely benign. No follow-up imaging is recommended for these lesions per consensus recommendations based on imaging criteria. Laboratory Results WBC 19.9 10^3/uL (4.0-10.0) H 09/17/22 02:15 RBC 4.78 10^6/uL (4.1-5.3) 09/17/22 02:15 Hgb 15.1 g/dL (11.5-15.3) 09/17/22 02:15 Hct 46.2 % (37.0-47.0) 09/17/22 02:15 MCV 96.7 fl (81-99) 09/17/22 02:15 MCH 31.6 pg (28.0-34.0) 09/17/22 02:15 MCHC 32.7 g/dL (30.0-36.0) 09/17/22 02:15 RDW 13.1 % (12.1-15.1) 09/17/22 02:15 Plt Count 375 10^3/cmm (130-400) 09/17/22 02:15 MPV 9.6 fL (7.4-10.4) 09/17/22 02:15 Neut % (Auto) 78.2 % 09/17/22 02:15 Lymph % (Auto) 13.8 % 09/17/22 02:15 Hudspeth % (Auto) 7.2 % 09/17/22 02:15 Eos % (Auto) 0.1 % 09/17/22 02:15 Baso % (Auto) 0.4 % 09/17/22 02:15 Neut # (Auto) 15.55 10^3/uL (1.8-7.7) H 09/17/22 02:15 Lymph # (Auto) 2.8 10^3/uL (0.8-4.8) 09/17/22 02:15 Hudspeth # (Auto) 1.4 10^3/uL (0.2-0.9) H 09/17/22 02:15 Eos # (Auto) 0.0 10^3/uL (0.0-0.8) 09/17/22 02:15 Baso # (Auto) 0.1 10^3/uL (0.0-0.1) 09/17/22 02:15 Nucleated RBC % (auto) 0 % 09/17/22 02:15 Nucleated RBCs # 0.0 /100WBC 09/17/22 02:15 Sodium 141 mmol/L (136-145) 09/17/22 02:15 Sodium Cancelled 09/17/22 02:15 Potassium 3.7 mmol/L (3.5-5.1) 09/17/22 02:15 Potassium Cancelled 09/17/22 02:15 Chloride 95 mmol/L (98-107) L 09/17/22 02:15 Chloride Cancelled 09/17/22 02:15 Carbon Dioxide 29 mmol/L (22-29) 09/17/22 02:15 Carbon Dioxide Cancelled 09/17/22 02:15 Anion Gap 20.7 (5-19) H 09/17/22 02:15 Anion Gap Cancelled 09/17/22 02:15 BUN 41 mg/dL (6-20) H 09/17/22 02:15 BUN Cancelled 09/17/22 02:15 Creatinine 1.3 mg/dL (0.5-0.9) H 09/17/22 02:15 Creatinine Cancelled 09/17/22 02:15 GFR Calculation 43.2 mL/min (90-130) L 09/17/22 02:15 GFR Calculation Cancelled 09/17/22 02:15 Glucose 128 mg/dL (65-115) H 09/17/22 02:15 Glucose Cancelled 09/17/22 02:15 Calculated Osmolality 304 mOsm/kg (285-295) H 09/17/22 02:15 Calculated Osmolality Cancelled 09/17/22 02:15 Calcium 10.1 mg/dL (8.5-10.5) 09/17/22 02:15 Calcium Cancelled 09/17/22 02:15 Total Bilirubin 0.9 mg/dL (0.15-1.2) 09/17/22 02:15 Total Bilirubin Cancelled 09/17/22 02:15 AST 25 U/L (0-32) 09/17/22 02:15 AST Cancelled 09/17/22 02:15 ALT 16 U/L (0-33) 09/17/22 02:15 ALT Cancelled 09/17/22 02:15 Alkaline Phosphatase 110 U/L (35-105) H 09/17/22 02:15 Alkaline Phosphatase Cancelled 09/17/22 02:15 Total Protein 8.5 g/dL (6.6-8.7) 09/17/22 02:15 Total Protein Cancelled 09/17/22 02:15 Albumin 4.4 g/dL (3.5-5.2) 09/17/22 02:15 Albumin Cancelled 09/17/22 02:15 Globulin 4.1 g/dL (1.3-4.6) 09/17/22 02:15 Globulin Cancelled 09/17/22 02:15 Lipase 15 U/L (13-60) 09/17/22 02:15 Lipase Cancelled 09/17/22 02:15 H. pylori IgG Antibody Negative (Negative) 09/17/22 02:15 Discharge Plan Discharge Patient Disposition: Home Clinical Impression: Esophagitis, Vomiting Condition: Stable Prescriptions: New ondansetron 4 mg film 4 mg PO DAILY PRN (Reason: nausea and vomiting) Qty: 14 0RF No Action sucralfate 1 gram tablet 1 g PO TID topiramate 100 mg tablet 100 mg PO BID albuterol sulfate 90 mcg/actuation HFA aerosol inhaler 2 puff inhalation Q6H PRN lisinopril 10 mg tablet 10 mg PO DAILY trazodone 150 mg tablet 150 mg PO .q hs PRN (Reason: sleep) Qty: 60 1RF Rx Instructions: Take one or two tablets at bedtime, if needed for sleep; risperidone 1 mg tablet 1 mg PO BID Qty: 60 1RF Rx Instructions: Take one tablet by mouth every morning and at bedtime fluoxetine 40 mg capsule 40 mg PO QAM Qty: 30 1RF Rx Instructions: Take one capsule by mouth every morning nicotine 21 mg/24 hr patch 24 hour 1 patch transdermal DAILY Qty: 28 1RF Rx Instructions: Apply one patch every morning to dry skin; remove at bedtime pantoprazole 40 mg Tablet,Delayed Release (Dr/Ec) 40 mg PO DAILY 30 Days Qty: 30 1RF Discharge Orders: Discharge ED (Routine); Ordered 09/17/22 Ordered By: Jimmy Banks Referrals: Kevin Cool MD [Primary Care Provider] - 1-3 days Patient Instructions: Esophagitis (ED), Vomiting - Adult Activity Restrictions/Additional Instructions: Your CAT scan showed esophagitis, which is a significant inflammation of the marsh of the tube that lead from your throat to your stomach. This appears to be the cause of your symptoms. Continue your pantoprazole and sucralfate. Use the nausea medication prescribed every 4 hours while awake for 24 hours, then as needed following. Return for fever greater than 100, worsening pain, vomiting liquids or medications despite treatment, other concerning symptoms. Follow-up with your doctor early next week. Coding Level of Care Code ED Wildlife Conservation Professor for Chg Fwd Documented by User: Jimmy Banks, 09/17/22 05:24 HPI - Abdominal Pain General: Chief Complaint: Nausea/Vomiting/Diarrhea Stated Complaint: n/v; blood Time Seen by Provider: 09/17/22 02:03 [facility] ED PFSH: Medical History Depression Major depressive disorder, recurrent, severe with psychotic features Nicotine dependence Has been referred to [facility] for smoking cessation assistance Psychiatric care Social History Smoking and tobacco status: current every day smoker cigarettes Years cigarettes smoked: 35 Quit status (tobacco): not considering quitting Second hand smoke exposure: Yes Smoking risk assessment/counseling performed?: No Alcohol intake: never Desire information about alcohol rehabilitation?: No Counseling given: No Desire information about substance/drug rehabilitation?: No Counseling given: No Course Vital Signs: Vital signs: Vital Signs Temperature 98.5 F 09/17/22 02:06 Pulse Rate 112 H 09/17/22 05:24 Respiratory Rate 18 09/17/22 02:06 Blood Pressure 142/98 09/17/22 02:06 Pulse Oximetry 90 09/17/22 05:24 Oxygen Delivery Me thod Room Air 09/17/22 03:39 MDM - Abdominal Pain Medical Decision Making This patient was originally seen by Mr. Stevie PA-C.? I agree with his history, evaluation, and treatment. White blood cell count was 20. Hemoglobin 15. BUN 41 creatinine 1.3. She has received a liter of fluid for this. No further vomiting here. She is feeling improved. CT reveals esophagitis. We will treat accordingly. Close outpatient follow-up. She is already on pantoprazole and sucralfate. We will add oral Zofran for vomiting. She will return for any worsening symptoms. Lab Data 09/17/22 02:15 09/17/22 02:15 Labs/Radiology: Radiology Impressions Abdomen/Pelvis CT 09/17/22 02:15 IMPRESSION: 1. Small hiatal hernia. 2. The marsh of the partially imaged distal esophagus appear markedly thickened, differential includes chronic inflammatory changes secondary to GERD and infectious and or inflammatory process however other etiologies including neoplasm although less likely cannot be excluded. Correlate and follow-up as clinically indicated. 3. Other chronic/incidental findings as described above. COMMENTS: Consistent with the [employer]'s Incidental Findings Committee white paper (J Am Segundo Radiol 2018): Any incidental renal lesion less than 1 cm or classified as too small to characterize, or any incidental cystic renal lesion characterized as simple-appearing, is likely benign. No follow-up imaging is recommended for these lesions per consensus recommendations based on imaging criteria. Laboratory Results WBC 19.9 10^3/uL (4.0-10.0) H 09/17/22 02:15 RBC 4.78 10^6/uL (4.1-5.3) 09/17/22 02:15 Hgb 15.1 g/dL (11.5-15.3) 09/17/22 02:15 Hct 46.2 % (37.0-47.0) 09/17/22 02:15 MCV 96.7 fl (81-99) 09/17/22 02:15 MCH 31.6 pg (28.0-34.0) 09/17/22 02:15 MCHC 32.7 g/dL (30.0-36.0) 09/17/22 02:15 RDW 13.1 % (12.1-15.1) 09/17/22 02:15 Plt Count 375 10^3/cmm (130-400) 09/17/22 02:15 MPV 9.6 fL (7.4-10.4) 09/17/22 02:15 Neut % (Auto) 78.2 % 09/17/22 02:15 Lymph % (Auto) 13.8 % 09/17/22 02:15 Hudspeth % (Auto) 7.2 % 09/17/22 02:15 Eos % (Auto) 0.1 % 09/17/22 02:15 Baso % (Auto) 0.4 % 09/17/22 02:15 Neut # (Auto) 15.55 10^3/uL (1.8-7.7) H 09/17/22 02:15 Lymph # (Auto) 2.8 10^3/uL (0.8-4.8) 09/17/22 02:15 Hudspeth # (Auto) 1.4 10^3/uL (0.2-0.9) H 09/17/22 02:15 Eos # (Auto) 0.0 10^3/uL (0.0-0.8) 09/17/22 02:15 Baso # (Auto) 0.1 10^3/uL (0.0-0.1) 09/17/22 02:15 Nucleated RBC % (auto) 0 % 09/17/22 02:15 Nucleated RBCs # 0.0 /100WBC 09/17/22 02:15 Sodium 141 mmol/L (136-145) 09/17/22 02:15 Sodium Cancelled 09/17/22 02:15 Potassium 3.7 mmol/L (3.5-5.1) 09/17/22 02:15 Potassium Cancelled 09/17/22 02:15 Chloride 95 mmol/L (98-107) L 09/17/22 02:15 Chloride Cancelled 09/17/22 02:15 Carbon Dioxide 29 mmol/L (22-29) 09/17/22 02:15 Carbon Dioxide Cancelled 09/17/22 02:15 Anion Gap 20.7 (5-19) H 09/17/22 02:15 Anion Gap Cancelled 09/17/22 02:15 BUN 41 mg/dL (6-20) H 09/17/22 02:15 BUN Cancelled 09/17/22 02:15 Creatinine 1.3 mg/dL (0.5-0.9) H 09/17/22 02:15 Creatinine Cancelled 09/17/22 02:15 GFR Calculation 43.2 mL/min (90-130) L 09/17/22 02:15 GFR Calculation Cancelled 09/17/22 02:15 Glucose 128 mg/dL (65-115) H 09/17/22 02:15 Glucose Cancelled 09/17/22 02:15 Calculated Osmolality 304 mOsm/kg (285-295) H 09/17/22 02:15 Calculated Osmolality Cancelled 09/17/22 02:15 Calcium 10.1 mg/dL (8.5-10.5) 09/17/22 02:15 Calcium Cancelled 09/17/22 02:15 Total Bilirubin 0.9 mg/dL (0.15-1.2) 09/17/22 02:15 Total Bilirubin Cancelled 09/17/22 02:15 AST 25 U/L (0-32) 09/17/22 02:15 AST Cancelled 09/17/22 02:15 ALT 16 U/L (0-33) 09/17/22 02:15 ALT Cancelled 09/17/22 02:15 Alkaline Phosphatase 110 U/L (35-105) H 09/17/22 02:15 Alkaline Phosphatase Cancelled 09/17/22 02:15 Total Protein 8.5 g/dL (6.6-8.7) 09/17/22 02:15 Total Protein Cancelled 09/17/22 02:15 Albumin 4.4 g/dL (3.5-5.2) 09/17/22 02:15 Albumin Cancelled 09/17/22 02:15 Globulin 4.1 g/dL (1.3-4.6) 09/17/22 02:15 Globulin Cancelled 09/17/22 02:15 Lipase 15 U/L (13-60) 09/17/22 02:15 Lipase Cancelled 09/17/22 02:15 H. pylori IgG Antibody Negative (Negative) 09/17/22 02:15 Discharge Plan Discharge Patient Disposition: Home Clinical Impression: Esophagitis, Vomiting Condition: Stable Prescriptions: New ondansetron 4 mg film 4 mg PO DAILY PRN (Reason: nausea and vomiting) Qty: 14 0RF No Action sucralfate 1 gram tablet 1 g PO TID topiramate 100 mg tablet 100 mg PO BID albuterol sulfate 90 mcg/actuation HFA aerosol inhaler 2 puff inhalation Q6H PRN lisinopril 10 mg tablet 10 mg PO DAILY trazodone 150 mg tablet 150 mg PO .q hs PRN (Reason: sleep) Qty: 60 1RF Rx Instructions: Take one or two tablets at bedtime, if needed for sleep; risperidone 1 mg tablet 1 mg PO BID Qty: 60 1RF Rx Instructions: Take one tablet by mouth every morning and at bedtime fluoxetine 40 mg capsule 40 mg PO QAM Qty: 30 1RF Rx Instructions: Take one capsule by mouth every morning nicotine 21 mg/24 hr patch 24 hour 1 patch transdermal DAILY Qty: 28 1RF Rx Instructions: Apply one patch every morning to dry skin; remove at bedtime pantoprazole 40 mg Tablet,Delayed Release (Dr/Ec) 40 mg PO DAILY 30 Days Qty: 30 1RF Discharge Orders: Discharge ED (Routine); Ordered 09/17/22 Ordered By: Jimmy Banks Referrals: Kevin Cool MD [Primary Care Provider] - 1-3 days Patient Instructions: Esophagitis (ED), Vomiting - Adult Activity Restrictions/Additional Instructions: Your CAT scan showed esophagitis, which is a significant inflammation of the marsh of the tube that lead from your throat to your stomach. This appears to be the cause of your symptoms. Continue your pantoprazole and sucralfate. Use the nausea medication prescribed every 4 hours while awake for 24 hours, then as needed following. Return for fever greater than 100, worsening pain, vomiting liquids or medications despite treatment, other concerning symptoms. Follow-up with your doctor early next week. Coding Level of Care Code ED Wildlife Conservation Professor for Swetha Mehta
[2022-09-17 02:21] LABS: Basophils # 0.1 10^3/uL (0.0-0.1); Basophils % 0.4 %; Eosinophils % 0.1 %; Hematocrit 46.2 % (37.0-47.0); Hemoglobin 15.1 g/dL (11.5-15.3); Lymphocytes # 2.8 10^3/uL (0.8-4.8); Lymphocytes % 13.8 %; Mean Corpuscular HGB Conc 32.7 g/dL (30.0-36.0); Mean Corpuscular Hemoglobin 31.6 pg (28.0-34.0); Mean Corpuscular Volume 96.7 fl (81-99); Mean Platelet Volume 9.6 fL (7.4-10.4); Monocytes # 1.4 10^3/uL (0.2-0.9); Monocytes % 7.2 %; Neutrophils # 15.55 10^3/uL (1.8-7.7); Neutrophils % 78.2 %; Nucleated Red Blood Cells % 0 %; Platelet Count 375 10^3/cmm (130-400); Red Blood Count 4.78 10^6/uL (4.1-5.3); Red Cell Distribution Width 13.1 % (12.1-15.1); White Blood Count 19.9 10^3/uL (4.0-10.0)
[2022-09-17 02:40] LABS: Alanine Aminotransferase 16 U/L (0-33); Albumin Level 4.4 g/dL (3.5-5.2); Alkaline Phosphatase 110 U/L (35-105); Anion Gap 20.7 (5-19); Aspartate Amino Transferase 25 U/L (0-32); Blood Urea Nitrogen 41 mg/dL (6-20); Calcium 10.1 mg/dL (8.5-10.5); Carbon Dioxide 29 mmol/L (22-29); Chloride 95 mmol/L (98-107); Globulin 4.1 g/dL (1.3-4.6); Glomerular Filtration Rate 43.2 mL/min (90-130); Glucose 128 mg/dL (65-115); Lipase 15 U/L (13-60); Osmolality Calculated 304 mOsm/kg (285-295); Potassium 3.7 mmol/L (3.5-5.1); Sodium 141 mmol/L (136-145); Total Bilirubin 0.9 mg/dL (0.15-1.2); Total Protein 8.5 g/dL (6.6-8.7)
[2022-09-17] MEDS: ondansetron 2 mg/ML SDV 2 mL 4 MG IVP (02:42)
[2022-09-17] MEDS: morphine 4 mg/mL SDV 1 mL IVP (02:42)
[2022-09-17] MEDS: sodium chloride 0.9% 1,000 ML 999 ML IV (02:42)
[2022-09-17 02:53] LABS: H. Pylori IgG Antibody Negative (Negative)
[2022-09-17] MEDS: iohexol 350 mg/mL 500 mL Btl (per mL) IV (03:09)
[2022-09-17 03:39] VITALS: PULSE 95; O2SAT 97
[2022-09-17 05:24] VITALS: PULSE 112; O2SAT 90
[2022-09-17] MEDS: lidocaine 2% viscous 15 ML, aluminum-mag hydrox-simethicon 30 ML, sucralfate oral liq 1 GM PO (05:26)
== END 2022-09-17 05:26 | disposition home or self-care (01) ==
PROVIDERS: Physician Assistant; Emergency Provider Emergency Medicine; PCP Family Medicine
DX: K20.90 Esophagitis, unspecified without bleeding (principal); R11.11 Vomiting without nausea; K44.9 Diaphragmatic hernia without obstruction or gangrene; F17.210 Nicotine dependence, cigarettes, uncomplicated
CPT/HCPCS: 74177; 80053; 83690; 85025; 86677; 96374; 96375; 99285; J2270; J2405; J7030; Q9967

== ENCOUNTER 2022-12-23 15:47 | Inpatient (IN) | payer BC, SELFPAY ==
[2022-12-23 15:55] VITALS: BMI 29.8
[2022-12-23 16:01] VITALS: BP 147/92; PULSE 97; RESP 17; TEMP 36.7; O2SAT 100
--- NOTE | 2022-12-23 16:03 | ECG_ITS ---
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 Measurements Intervals [place] Rate: 83 P: 66 FL: 159 QRS: 70 QRSD: 87 T: 74 QT: 374 QTc: 440 Interpretive Statements SINUS RHYTHM POSSIBLE RIGHT VENTRICULAR CONDUCTION DELAY [RSR (QR) IN V1/V2] Compared to ECG 10/07/2021 16:03:42 No significant changes Electronically Signed On 12-24-2022 6:57:32 CDT by Gege Blackwell M.D. [id number]
--- NOTE | 2022-12-23 16:03 | CTR_ITS ---
PROCEDURE INFORMATION: Exam: CT Head Without Contrast Exam date and time: 12/23/2022 4:57 PM Age: 52 years old Clinical indication: Alteration of consciousness; Transient alteration of awareness; Additional info: AMS TECHNIQUE: Imaging protocol: Computed tomography of the head without contrast. Radiation optimization: All CT scans at this facility use at least one of these dose optimization techniques: automated exposure control; mA and/or kV adjustment per patient size (includes targeted exams where dose is matched to clinical indication); or iterative reconstruction. REPORTING DATA: Count of CT and Cardiac NM exams in prior 12 months: This patient has received 2 known CTs and 0 known cardiac nuclear medicine studies in the 12 months prior to the current study. COMPARISON: No relevant prior studies available. RADIATION DOSE METRICS: Total DLP (mGy-cm): 598.79 FINDINGS: Brain: No acute infarct. No hemorrhage. Unremarkable white matter for age. No mass effect. The most inferior aspect of the cerebellum is not included in the imaging field of view. Cerebral ventricles: No ventriculomegaly. Paranasal sinuses: No significant inflammation. No fluid levels. Mastoid air cells: Visualized mastoid air cells are well aerated. Bones/joints: Unremarkable. No acute fracture. Soft tissues: Unremarkable. CT/CT head wo con* [id number] IMPRESSION: No acute intracranial abnormality.
[2022-12-23 16:09] VITALS: O2SAT 82; O2SAT 95
[2022-12-23] MEDS: sodium chloride 0.9% 1,000 ML 999 ML IV ×2 (16:16→18:05)
[2022-12-23 16:28] LABS: ABG PCO2 38.9 mmHg (35-45); ABG PH Result 7.43 (7.35-7.45); Alveolar-Arterial Oxygen Gradi 2.3 mmHg (5-10); Base Excess ABG 1.4 mmol/L (-2.0-2.0); Blood Gas Allen Test Pos; Blood Gas Operator Identificat WALCI; Blood Gas Sample Site Radial, right; Blood Gas Sample Type Arterial; Carboxyhemoglobin 4.9 %THgb (0.4-20.1); HCO3 ABG 25.8 mmol/L (22-26); HGB O2 Sat 92.2 % (95-100); Ionized Calcium Level - ABG 1.3 mmol/L (1.1-1.4); Methemoglobin 0.4 % (0.4-1.5); Oxygen Device NC; Oxygen Saturation ABG 97.4; PO2 ABG 83.2 mmHg (80.0-100.0); Potassium Level - ABG 3.6 mmol/L (3.5-5.0); Total Hemoglobin 14.4 g/dL (12-16)
[2022-12-23 16:51] LABS: Bilirubin Urine Neg (Negative); Blood Urine Neg (Negative); Glucose Urine UA Norm (Normal); Ketones Urine Negative (Negative); Nitrate Urine Negative (Negative); Protein Urine Neg (Negative); Specific Gravity, Urine 1.015 (1.005-1.030); Urine Appearance Cloudy (CLEAR); Urine Color Yellow (Yellow); pH Urine 8 (5-7)
[2022-12-23 16:52] LABS: Add Urine Culture? Yes; Add Urine Microscopic? YES; Bacteria Urine 4+ /hpf; Leukocyte Esterase Urine Negative (Negative); RBC Urine 0-4 /hpf (0-2); Squamous Epithelial Cell Urine 0-4 /hpf (0-5); Sulfosalicylic Acid Urine Negative (Negative); Urobilinogen Urine Norm (Negative); WBC Urine 0-4 /hpf (0-5)
[2022-12-23 16:54] LABS: Amphetamines Screen Urine Positive (Negative); Barbiturates Screen Urine Negative (Negative); Benzodiazepines Screen Urine Negative (Negative); Cocaine Screen Urine Negative (Negative); Opiate Screen Urine Negative (Negative); PCP Screen Urine Negative (Negative); THC Screen Urine Negative (Negative)
[2022-12-23 17:03] LABS: Basophils # 0.1 10^3/uL (0.0-0.1); Basophils % 0.7 %; Eosinophils # 0.1 10^3/uL (0.0-0.8); Eosinophils % 1.2 %; Hematocrit 47.5 % (37.0-47.0); Hemoglobin 14.8 g/dL (11.5-15.3); Lymphocytes # 2.9 10^3/uL (0.8-4.8); Lymphocytes % 26.5 %; Mean Corpuscular HGB Conc 31.2 g/dL (30.0-36.0); Mean Corpuscular Hemoglobin 29.9 pg (28.0-34.0); Mean Platelet Volume 11.2 fL (7.4-10.4); Monocytes # 1.1 10^3/uL (0.2-0.9); Monocytes % 9.8 %; Neutrophils # 6.62 10^3/uL (1.8-7.7); Neutrophils % 61.5 %; Nucleated Red Blood Cells % 0 %; Platelet Count 352 10^3/cmm (130-400); Red Blood Count 4.95 10^6/uL (4.1-5.3); Red Cell Distribution Width 13.2 % (12.1-15.1); White Blood Count 10.8 10^3/uL (4.0-10.0)
[2022-12-23 17:29] LABS: Acetaminophen < 5.0 ug/mL (10-30); Alanine Aminotransferase 12 U/L (0-33); Albumin Level 4.3 g/dL (3.5-5.2); Alcohol Level < 10 mg/dL (0-10); Alkaline Phosphatase 125 U/L (35-105); Blood Urea Nitrogen 15 mg/dL (6-20); CKMB 3.6 ng/mL (0-5.34); Carbon Dioxide 26 mmol/L (22-29); Chloride 100 mmol/L (98-107); Creatine Phosphokinase 103 U/L (26-192); Creatinine Clr Calc Pharmacy 80.7237; Globulin 3.9 g/dL (1.3-4.6); Glucose 96 mg/dL (65-115); Osmolality Calculated 289 mOsm/kg (285-295); Salicylate < 0.3 mg/dL (3-10); Sodium 139 mmol/L (136-145); Total Bilirubin 0.4 mg/dL (0.15-1.2); Total Protein 8.2 g/dL (6.6-8.7)
[2022-12-23 17:30] LABS: Anion Gap 16.7 (5-19); Aspartate Amino Transferase 18 U/L (0-32); Potassium 3.7 mmol/L (3.5-5.1)
--- NOTE | 2022-12-23 17:36 | ED_ITS ---
HPI - Altered Mental Status General: Chief Complaint: ER Hold Stated Complaint: ams,combative Time Seen by Provider: 12/23/22 16:03 History of Present Illness: 52-year-old female with a history of asthma, hypertension, tobacco abuse, GERD, seizure disorder and nonspecific mood disorder was brought in by EMS after she was found in the closet with altered mental status changes. According to the EMS, they found her medication on the floor next to the patient. Upon present emergency room patient was severely confused, disheveled and smells of urine patient had a thorough examination with any signs of acute head injury. Review of Systems General: Reports: 10 or more systems reviewed and unremarkable except in HPI and below and ROS unobtainable due to medical condition PFS ED PFSH: Medical History Depression Major depressive disorder, recurrent, severe with psychotic features Nicotine dependence Has been referred to [facility] for smoking cessation assistance Psychiatric care Social History Smoking and tobacco status: current every day smoker cigarettes Years cigarettes smoked: 35 Quit status (tobacco): not considering quitting Second hand smoke exposure: Yes Smoking risk assessment/counseling performed?: No Alcohol intake: never Desire information about alcohol rehabilitation?: No Counseling given: No Substance/Drug Use: never Desire information about substance/drug rehabilitation?: No Counseling given: No Physical Exam Const: GENERAL APPEARANCE: disheveled and other (Smells of urine); not in distress, not lethargic and not ill appearing ORIENTATION/CONSCIOU SNESS: not oriented to person, not oriented to place, not oriented to time, not confused, not patient obtunded and not lethargic HENMT: COMMON NORMALS: normocephalic; head/scalp not atraumatic HEAD & SCALP: normal to inspection and normocephalic; not atraumatic, no Acrocyanosis present, no abrasion, no Cheung's sign, no contusion, no hematoma, no laceration, no raccoon eyes and no scalp lesion FACE & SINUS: no Acrocyanosis present Eye: COMMON NORMALS: Equal, round and reactive pupils present, EOMs intact bilaterally, conjunctivae normal, no scleral icterus, no papilledema and fundi normal bilaterally CONJUNCTIVA: Yes conjunctivae normal PUPIL: Yes Equal, round and reactive pupils present DIRECT OPHTHALMOSCOPY: Yes no papilledema and Yes fundi normal bilaterally Neck/C-Spine: COMMON NORMALS: no meningeal signs and no JVD Chest: COMMONS NORMALS: normal inspection of the chest, normal palpation of entire chest wall, normal inspection of the breasts and normal palpation of the breasts Resp: COMMON NORMALS: normal respiratory effort, No retractions, No use of accessory muscles, clear to auscultation bilaterally and percussion normal AUSCULTATION: clear to auscultation bilaterally PERCUSSION: percussion normal Cardio: COMMON NORMALS: no JVD, regular rate, regular rhythm, S1 normal heart sound present, S2 normal heart sound present, No gallops present (Cardio), No clicks present (Cardio), No murmurs present (Cardio), No rub (Cardio) and Peripheral pulses 2+ throughout RATE: regular rate RHYTHM: regular rhythm HEART SOUNDS: S1 normal heart sound present and S2 normal heart sound present PERIPHERAL PULSES: Peripheral pulses 2+ throughout Neuro: ROMAN COMA SCALE: document GCS findings [place] coma scale eye opening: To sound Roman coma scale verbal response: Confused [place] coma scale motor response: Localising Roman coma scale total score: 12 SENSORIUM/ORIENTATION: No oriented to person, No oriented to place, No oriented to time and No lethargic MENINGEAL SIGNS: Yes no meningeal signs, No Brudzinski's sign present and No Kernig's sign presnet Course ED course: Upon reassessment patient is still very confused but laying in bed without any acute distress. Was on the monitors and was stable. Reevaluation(s): Reevaluation #1: Discussed patient with the hospitalist Dr. Mcmanus. Presented emergency room to evaluate patient and will admit patient for further evaluation and treatment. Vital Signs: Vital signs: Vital Signs Temperature 98.1 F 12/23/22 16:01 Pulse Rate 87 12/23/22 20:08 Respiratory Rate 16 12/23/22 20:08 Blood Pressure 137/83 12/23/22 20:08 Pulse Oximetry 98 12/23/22 20:08 Oxygen Delivery Me thod Room Air 12/23/22 21:17 Oxygen Flow Rate 2 12/23/22 16:09 MDM - Altered Mental Status Medical Decision Making Patient made comfortable emergency room. Patient with extensive work-up to include labs, CT, x-ray and EKG. Patient was given IV fluid, IV antibiotics. I discussed patient with the hospitalist. Differential Diagnosis Likely alcoholic intoxication, altered mental status, delirium, dementia, hypoglycemia, hyponatremia, subarachnoid hemorrhage and sepsis Lab Data 12/23/22 16:20 12/23/22 16:[address] 12/23/22 16:03 IMPRESSION: No acute intracranial abnormality. Chest X-Ray 12/23/22 17:44 IMPRESSION: Possible upper lobe interstitial infiltrate. Correlate for pneumonia clinically. Laboratory Results WBC 10.8 10^3/uL (4.0-10.0) H 12/23/22 16:20 RBC 4.95 10^6/uL (4.1-5.3) 12/23/22 16:20 Hgb 14.8 g/dL (11.5-15.3) 12/23/22 16:20 Hct 47.5 % (37.0-47.0) H 12/23/22 16:20 MCV 96.0 fl (81-99) 12/23/22 16:20 MCH 29.9 pg (28.0-34.0) 12/23/22 16:20 MCHC 31.2 g/dL (30.0-36.0) 12/23/22 16:20 RDW 13.2 % (12.1-15.1) 12/23/22 16:20 Plt Count 352 10^3/cmm (130-400) 12/23/22 16:20 MPV 11.2 fL (7.4-10.4) H 12/23/22 16:20 Neut % (Auto) 61.5 % 12/23/22 16:20 Lymph % (Auto) 26.5 % 12/23/22 16:20 [place] % (Auto) 9.8 % 12/23/22 16:20 Eos % (Auto) 1.2 % 12/23/22 16:20 Baso % (Auto) 0.7 % 12/23/22 16:20 Neut # (Auto) 6.62 10^3/uL (1.8-7.7) 12/23/22 16:20 Lymph # (Auto) 2.9 10^3/uL (0.8-4.8) 12/23/22 16:20 [place] # (Auto) 1.1 10^3/uL (0.2-0.9) H 12/23/22 16:20 Eos # (Auto) 0.1 10^3/uL (0.0-0.8) 12/23/22 16:20 Baso # (Auto) 0.1 10^3/uL (0.0-0.1) 12/23/22 16:20 Nucleated RBC % (auto) 0 % 12/23/22 16:20 Nucleated RBCs # 0.0 /100WBC 12/23/22 16:20 PT 13.60 SECONDS (12.1-14.9) 12/23/22 16:20 INR 1.01 (0.8-1.2) 12/23/22 16:20 Specimen Type Arterial 12/23/22 16:16 Sample Site Radial, right 12/23/22 16:16 ABG pH 7.43 (7.35-7.45) 12/23/22 16:16 ABG pCO2 38.9 mmHg (35-45) 12/23/22 16:16 ABG pO2 83.2 mmHg (80.0-100.0) 12/23/22 16:16 ABG HCO3 25.8 mmol/L (22-26) 12/23/22 16:16 ABG O2 Saturation 97.4 12/23/22 16:16 ABG Base Excess 1.4 mmol/L (-2.0-2.0) 12/23/22 16:16 Ha Test Pos 12/23/22 16:16 A-a O2 Gradient 2.3 mmHg (5-10) L 12/23/22 16:16 Hematocrit 44.0 % (37-47) 12/23/22 16:16 Hgb O2 Saturation 92.2 % (95-100) L 12/23/22 16:16 Carboxyhemoglobin 4.9 %THgb (0.4-20.1) 12/23/22 16:16 Methemoglobin 0.4 % (0.4-1.5) 12/23/22 16:16 Total Hemoglobin 14.4 g/dL (12-16) 12/23/22 16:16 Sodium 142.0 mmol/L (131-143) 12/23/22 16:16 Potassium 3.6 mmol/L (3.5-5.0) 12/23/22 16:16 Glucose 99.0 mg/dL (70-115) 12/23/22 16:16 Ionized Calcium 1.3 mmol/L (1.1-1.4) 12/23/22 16:16 O2 Delivery Device Nc 12/23/22 16:16 O2 Liters/Min 3.0 % 12/23/22 16:16 Base Cloth Inspector ID [place] 12/23/22 16:16 Sodium 139 mmol/L (136-145) 12/23/22 16:20 Potassium 3.7 mmol/L (3.5-5.1) 12/23/22 16:20 Chloride 100 mmol/L (98-107) 12/23/22 16:20 Carbon Dioxide 26 mmol/L (22-29) 12/23/22 16:20 Anion Gap 16.7 (5-19) 12/23/22 16:20 BUN 15 mg/dL (6-20) 12/23/22 16:20 Creatinine 0.9 mg/dL (0.5-0.9) 12/23/22 16:20 GFR Calculation 66.0 mL/min (90-130) L 12/23/22 16:20 Glucose 96 mg/dL (65-115) 12/23/22 16:20 Calculated Osmolality 289 mOsm/kg (285-295) 12/23/22 16:20 Calcium 10.0 mg/dL (8.5-10.5) 12/23/22 16:20 Total Bilirubin 0.4 mg/dL (0.15-1.2) 12/23/22 16:20 AST 18 U/L (0-32) 12/23/22 16:20 ALT 12 U/L (0-33) 12/23/22 16:20 Alkaline Phosphatase 125 U/L (35-105) H 12/23/22 16:20 Creatine Kinase 103 U/L (26-192) 12/23/22 16:20 CK-MB (CK-2) 3.6 ng/mL (0-5.34) 12/23/22 16:20 CK-MB (CK-2) Rel Index % (0.0-10.4) 12/23/22 16:20 Troponin T Baseline 11 ng/L (0-10) H 12/23/22 16:20 C-Reactive Protein 12.9 mg/L (0.0-4.9) H 12/23/22 16:20 Total Protein 8.2 g/dL (6.6-8.7) 12/23/22 16:20 Albumin 4.3 g/dL (3.5-5.2) 12/23/22 16:20 Globulin 3.9 g/dL (1.3-4.6) 12/23/22 16:20 Lipase 51 U/L (13-60) 12/23/22 16:20 Procalcitonin 0.21 ng/mL (0-0.5) 12/23/22 16:20 TSH 3.19 uIU/mL (0.27-4.20) 12/23/22 16:20 Urine Color Yellow (Yellow) 12/23/22 16:31 Urine Appearance Cloudy (CLEAR) A 12/23/22 16:31 Urine pH 8 (5-7) H 12/23/22 16:31 Ur Specific [place] 1.015 (1.005-1.030) 12/23/22 16:31 Urine Protein Neg (Negative) 12/23/22 16:31 Urine Glucose (UA) Norm (Normal) 12/23/22 16:31 Urine Ketones Negative (Negative) 12/23/22 16:31 Urine Blood Neg (Negative) 12/23/22 16:31 Urine Nitrate Negative (Negative) 12/23/22 16:31 Urine Bilirubin Neg (Negative) 12/23/22 16:31 Prot Sulfosalicylic Acd Negative (Negative) 12/23/22 16:31 Urine Urobilinogen Norm mg/dL (Negative) 12/23/22 16:31 Ur Leukocyte Esterase Negative (Negative) 12/23/22 16:31 Urine RBC 0-4 /hpf (0-2) H 12/23/22 16:31 Urine WBC 0-4 /hpf (0-5) H 12/23/22 16:31 Ur Squamous Epith Cells 0-4 /hpf (0-5) H 12/23/22 16:31 Amorphous Sediment Not Reportable 12/23/22 16:31 Urine Bacteria 4+ /hpf (NONE) H 12/23/22 16:31 Salicylates < 0.3 mg/dL (3-10) L 12/23/22 16:20 Urine Opiates Screen Negative ng/mL (Negative) 12/23/22 16:31 Acetaminophen < 5.0 ug/mL (10-30) L 12/23/22 16:20 Ur Barbiturates Screen Negative ng/mL (Negative) 12/23/22 16:31 Ur Phencyclidine Scrn Negative ng/mL (Negative) 12/23/22 16:31 Ur Amphetamines Screen Positive ng/mL (Negative) H 12/23/22 16:31 U Benzodiazepines Scrn Negative ng/mL (Negative) 12/23/22 16:31 [place] 0.1 mmol/L (0.6-1.2) L 12/23/22 16:20 Urine Cocaine Screen Negative ng/mL (Negative) 12/23/22 16:31 U Marijuana (THC) Screen Negative ng/mL (Negative) 12/23/22 16:31 Ethyl Alcohol < 10 mg/dL (0-10) 12/23/22 16:20 EKG Data EKG 1: Interpretation: Sinus rhythm rate of [address] changes. KS interval 159 QT 374 Critical Care Time Critical Care Time: Critical Care Time: Yes Total Critical Care Time: 45 Attestation: Time spent to reevaluate patient multiple times after treatment and medication. Time spent discussing patient with the family and the hospitalist. Time spent reviewing past medical history and medication list. Discharge Plan Discharge Patient Disposition: Admitted As Inpatient Admit Provider: Fei Loya Clinical Impression: Altered mental status, UTI (urinary tract infection), Encephalopathy, Amphetamine abuse Condition: Stable Coding Level of Care Code ED Grader Operator for Swetha Metha
[2022-12-23 17:40] LABS: Lithium 0.1 mmol/L (0.6-1.2)
--- NOTE | 2022-12-23 17:44 | XRR_ITS ---
PROCEDURE INFORMATION: Exam: XR Chest Exam date and time: 12/23/2022 6:12 PM Age: 52 years old Clinical indication: Other: Weakness TECHNIQUE: Imaging protocol: Radiologic exam of the chest. Views: 1 view. COMPARISON: CT lung screening [id number] 08/01/2022 2:31 PM FINDINGS: Lungs: Interstitial infiltrate is seen in the left upper lobe appearing better defined on the 1st image- less so on the 2nd. The right lung is clear. Pleural spaces: Unremarkable. No pleural effusion. No pneumothorax. Heart/Mediastinum: The heart size is stable. Bones/joints: Unremarkable. XR/XR chest 1V portable [id number] IMPRESSION: Possible upper lobe interstitial infiltrate. Correlate for pneumonia clinically.
[2022-12-23] MEDS: cefTRIAXone 1,000 MG in sodium chloride 0.9% (plus) 50 ML 100 MG IV (18:04)
[2022-12-23 18:14] LABS: Troponin(5th) Baseline 11 ng/L (0-10)
--- NOTE | 2022-12-23 18:17 | PM.HP ---
Providers/Chief Complaint Primary Care Provider: Kevin Cool MD Chief Complaint: ams,combative History of Present Illness Annie Montoya is a 52 year old female with a past medical history of past medical history of major depressive disorder, PTSD, possible seizures, who presents to [facility] due to altered mental status, currently patient is alert to person, not to place, not to time, she does not follow commands, she is encephalopathic, for she was lying on her belly, when I kept asking her to turn over so I can see her, she would not follow commands, she kept repeating my name, eventually with the help of nursing staff we are able to sit her up in bed, she is holding up her head, she has full neck range of motion, she can hold up both her extremities, she moves both her legs, pupils equal round reactive to light, she does not track me she does not follow me, nursing staff are able to get her to lie on her back, then she rolls over again to her side, she is quite disheveled, smells of urine, according to nursing staff, her fianc? Marshall has called, nursing staff found a pack of cigarettes, her glasses, and $100 bill on her, when they asked if they could discuss her care with Marshall she uses expletives and declines us sharing information. She will not provide much of a history, according to ER physician, patient was found down at home for an unknown period of time, EMS was called out to her home, found her encephalopathic, confused, she was immediately taken to CAT scan here, with no acute findings on her CAT scan, no significant hemodynamic abnormalities, she is on 2 L white count of 7.8 no significant acidosis on ABG no significant electrolyte abnormalities, urine potentially shows UTI she was given Rocephin her salicylates were negative, salicylates were negative, her urine toxicology screen was positive for amphetamines, lithium level 0.1, EKG no acute ST-T wave changes, chest x-ray is pending, reexamined patient multiple times, but she really is not providing history I cannot discern any facial droop, she says my name multiple times I cannot discern any slurring of her words, 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, she moves both upper and lower extremities, neurologic testing is difficult as she is encephalopathic, she does smell of urine possible she is postictal, I cannot discern any bruising, abdomen soft, nondistended, nontender, she really does not wince in pain when palpated, she has no CVA tenderness,, she is unable to provide a medical history, unable to provide a surgical history, unable to find a family history, unable to provide social history Review of Systems General: Reports: ROS unobtainable due to mental status Medications/Allergies Home Medications Medication Instructions Recorded Confirmed Last Taken Type pantoprazole 40 mg tablet,delayed 40 mg PO DAILY 30 days #30 tabs 02/17/22 06/14/22 Unknown Rx release albuterol sulfate 90 mcg/actuation 2 puff inhalation Q6H PRN 03/17/22 06/14/22 Unknown History aerosol inhaler lisinopril 10 mg tablet 10 mg PO DAILY 03/17/22 06/14/22 Unknown History sucralfate 1 gram tablet 1 g PO TID 03/17/22 06/14/22 Unknown History topiramate 100 mg tablet 100 mg PO BID 03/17/22 06/14/22 Unknown History fluoxetine 40 mg capsule 40 mg PO QAM #30 caps 06/14/22 06/14/22 Unknown Rx nicotine 21 mg/24 hr daily 1 patch transdermal DAILY #28 ea 06/14/22 06/14/22 Unknown Rx transdermal patch risperidone 1 mg tablet 1 mg PO BID #60 tabs 06/14/22 06/14/22 Unknown Rx trazodone 150 mg tablet 150 mg PO .q hs PRN sleep #60 tabs 06/14/22 06/14/22 Unknown Rx ondansetron 4 mg oral soluble film 4 mg PO DAILY PRN nausea and 09/17/22 Unknown Rx vomiting #14 ea Allergies Allergy/AdvReac Type Severity Reaction Status Date / Time No Known Allergies Allergy Verified 06/14/22 13:07 PFSH Acute PFSH: Medical History Depression Major depressive disorder, recurrent, severe with psychotic features Nicotine dependence Has been referred to [facility] for smoking cessation assistance Psychiatric care Social History Smoking and tobacco status: current every day smoker cigarettes Years cigarettes smoked: 35 Quit status (tobacco): not considering quitting Second hand smoke exposure: Yes Smoking risk assessment/counseling performed?: No Alcohol intake: never Desire information about alcohol rehabilitation?: No Counseling given: No Substance/Drug Use: never Desire information about substance/drug rehabilitation?: No Counseling given: No Vitals/I&O/Wt Last Vital Signs Temp 98.1 F 12/23/22 16:01 Pulse 97 12/23/22 16:01 Resp 17 12/23/22 16:01 BP 147/92 12/23/22 16:01 Pulse Ox 95 12/23/22 16:09 O2 Del Method Nasal Cannula 12/23/22 16:09 O2 Flow Rate 2 12/23/22 16:09 12/23/22 12/23/22 12/23/22 06:59 14:59 22:59 Intake Total 1000 / 1000 Balance 1000 / 1000 Weight last 48 hrs Weight 83.915 kg Physical Exam Const: COMMON NORMALS: no acute distress EXAM LIMITATIONS: altered mental status GENERAL APPEARANCE: odor of alcohol detected ORIENTATION/CONSCIOUSNESS: Yes awake, Yes oriented to person and Yes confused; not oriented to place and not oriented to time HENMT: COMMON NORMALS: normocephalic HEAD & SCALP: normocephalic Eye: COMMON NORMALS: Equal, round and reactive pupils present Neck/C-Spine: COMMON NORMALS: full ROM, no lymphadenopathy, supple and no meningeal signs Lymph: LYMPHATIC: no lymphadenopathy noted Resp: COMMON NORMALS: normal respiratory effort, No retractions, No use of accessory muscles and clear to auscultation bilaterally AUSCULTATION: clear to auscultation bilaterally Cardio: COMMON NORMALS: regular rate, regular rhythm, S1 normal heart sound present and S2 normal heart sound present RATE: regular rate RHYTHM: regular rhythm HEART SOUNDS: S1 normal heart sound present and S2 normal heart sound present GI: COMMON NORMALS: Normal to inspection, nondistended, normoactive bowel sounds present, Soft to palpation and non-tender : COMMON NORMALS: Yes no CVA tenderness Extremity: COMMON NORMALS: capillary refill normal, no clubbing, cyanosis or edema, no calf tenderness and no pedal edema Neuro: OTHER: Unable to follow neurologic testing Data 12/23/22 16:20 12/23/22 16:20 A&P Assessment and plan (1) Altered mental status: (2) UTI (urinary tract infection): (3) Encephalopathy: (4) Amphetamine abuse: Plan Altered mental status -Etiology unclear at this time -Potentially she could be postictal, I have ordered Keppra thousand twice daily -She was requiring 2 L, will follow chest x-ray, Pro-Misha, CRP -UTI she is on Rocephin -Head CT no acute findings, no focal symptoms that I can see no facial droop no slurring of her words, pupils equal round reactive to light she is spontaneous movement of upper and lower extremities she is able to sit up to a sitting position, good head holding,, but neurologic testing is difficult, -No neck stiffness, she has a good neck range of motion, neck is supple, currently afebrile, no significant [place] ptosis -Her urine toxicology screen is positive for methamphetamines -Possible alcoholism, she does smell of alcohol, start CIWA protocol -She was found with all her pill bottles all around her -Telemetry monitoring -Serial EKGs, surgical scar telemetry monitoring -Neurochecks, aspiration precautions, night stroke scale, seizure precautions -Full code -Lovenox for DVT prophylaxis Attestations Medical Necessity Statement*: Patient requires hospitalization, inpatient, greater than 2 midnights, for altered mental status Coding Level of Care Code Acute Code for Chg Fwd Diagnoses Altered mental status R41.82 UTI (urinary tract infection) N39.0 Encephalopathy G93.40 Amphetamine abuse F15.10
[2022-12-23 18:23] LABS: Procalcitonin 0.21 ng/mL (0-0.5)
[2022-12-23 18:47] LABS: Troponin 5 2HR 9.56 ng/L (0-10)
[2022-12-23 18:48] VITALS: BP 137/89; PULSE 76; RESP 16; O2SAT 98
[2022-12-23 19:01] LABS: INR 1.01 (0.8-1.2)
[2022-12-23 19:22] LABS: C Reactive Protein 12.9 mg/L (0.0-4.9); Lipase 51 U/L (13-60); Thyroid Stimulating Hormone 3.19 uIU/mL (0.27-4.20)
[2022-12-23 19:23] LABS: HCG, Serum Qual Negative (Negative)
[2022-12-23 19:24] LABS: Troponin 5 2HR Delta -1.44 ABS# (0-10)
[2022-12-23 19:25] LABS: Lactic Sepsis W/Reflex 0.8 mmol/L (0.5-2.2)
[2022-12-23 19:26] LABS: Ammonia 26 umol/L (11-51)
[2022-12-23] MEDS: pantoprazole 40 mg SDV IVP (20:01)
[2022-12-23] MEDS: enoxaparin 40 mg/0.4 mL Syringe SUBCUT (20:02)
[2022-12-23 20:08] VITALS: BP 137/83; PULSE 87; RESP 16; O2SAT 98
--- NOTE | 2022-12-23 21:24 | PC.NURSE ---
This nurse is unable to complete admission assessment questions at this time due to pt having no one else present to answer questions and the pt not able to respond well enough to produce answers. Pt is currently on room air maintaining own airway.
--- NOTE | 2022-12-23 22:11 | PC.NURSE ---
NIH completed to the best of this nurses ability. PT is responding and obeying only a few commands. Pt knows name but is otherwise not orientated.
[2022-12-23] MEDS: sodium chloride 0.9% 1,000 ML 75 ML IV (22:16)
[2022-12-23 22:18] VITALS: PULSE 75
[2022-12-23 23:28] VITALS: BP 137/81; PULSE 69; RESP 15; TEMP 36.3; O2SAT 98
[2022-12-24] VITALS (9 sets, daily range): BP systolic 121–138; BP diastolic 80–95; PULSE 71–82; RESP 14–18; TEMP 36.4–36.7; O2SAT 93–95
[2022-12-24 05:31] LABS: Basophils # 0.1 10^3/uL (0.0-0.1); Basophils % 0.8 %; Eosinophils # 0.3 10^3/uL (0.0-0.8); Eosinophils % 3.1 %; Hematocrit 45.1 % (37.0-47.0); Hemoglobin 13.8 g/dL (11.5-15.3); Lymphocytes # 2.7 10^3/uL (0.8-4.8); Lymphocytes % 32.5 %; Mean Corpuscular HGB Conc 30.6 g/dL (30.0-36.0); Mean Corpuscular Hemoglobin 29.9 pg (28.0-34.0); Mean Corpuscular Volume 97.6 fl (81-99); Mean Platelet Volume 10.4 fL (7.4-10.4); Monocytes % 11.4 %; Neutrophils % 52.1 %; Nucleated Red Blood Cells % 0 %; Platelet Count 311 10^3/cmm (130-400); Red Blood Count 4.62 10^6/uL (4.1-5.3); White Blood Count 8.4 10^3/uL (4.0-10.0)
[2022-12-24 05:52] LABS: Alanine Aminotransferase 10 U/L (0-33); Albumin Level 3.7 g/dL (3.5-5.2); Alkaline Phosphatase 112 U/L (35-105); Aspartate Amino Transferase 17 U/L (0-32); Blood Urea Nitrogen 9 mg/dL (6-20); Calcium 8.8 mg/dL (8.5-10.5); Carbon Dioxide 20 mmol/L (22-29); Chloride 109 mmol/L (98-107); Glomerular Filtration Rate 88.2 mL/min (90-130); Glucose 84 mg/dL (65-115); Osmolality Calculated 290 mOsm/kg (285-295); Phosphorus 3.5 mg/dL (2.5-4.5); Sodium 141 mmol/L (136-145); Total Bilirubin 0.5 mg/dL (0.15-1.2); Total Protein 6.7 g/dL (6.6-8.7)
[2022-12-24 06:06] LABS: Anion Gap 15.9 (5-19); Potassium 3.9 mmol/L (3.5-5.1)
--- NOTE | 2022-12-24 07:02 | PC.NURSE ---
PT had clothing, cigarettes and a security professional upon arriving to the med surg floor. Squirt Machine Operator and cigarettes locked up in pyxis.
[2022-12-24] MEDS: sodium chloride 0.9% 1,000 ML 75 ML IV ×2 (08:40→23:50)
--- NOTE | 2022-12-24 08:52 | PC.PHAR ---
unable to complete med rec at this time- pt is ams and i can not get ahold of pts son
--- NOTE | 2022-12-24 10:40 | PC.NURSE ---
Patient reports to Dr. Loya that she intentionally took medications at home to commit suicide. Precautions initiated, immediately.
--- NOTE | 2022-12-24 10:41 | PC.NURSE ---
Patient has a silver colored with wear ring that has red stones present in the middle. Ring is placed with the patient's belongings.
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
--- NOTE | 2022-12-24 11:36 | PC.NURSE ---
96hour hold rights given to patient by this nurse at 1134 on 12/24/22
--- NOTE | 2022-12-24 12:37 | PM.PN ---
Subjective Subjective: - Patient was seen this morning -She is alert to person, to place, not to time, -She tells me that she lives in [place], then she changes her story that she lives in [place] she does not know her address -I detailed discussion about her hospitalization, how EMS found her -She is not exactly sure what happened -When asked her if she was suicidal she said yes -I asked her if she has suicidal thoughts right now she said yes -I asked her clearly and plainly if she had taken her dose more than prescribed she said yes -When asked her if she had taken her pills in attempt to kill herself, she said yes -I asked her again to clarify did she try to kill herself she said yes -When asked her if she tried to kill any other people she did says no, I asked her if she had thoughts of killing others she said no -When asked her which pills she took, she does not know which ones -When asked her if she drank alcohol, she does not answer my question -When I asked her if she has taken any drugs she says yes she uses drugs, she uses methamphetamines -When asked her if she is seeing or hearing things are not there she declined -Given her active suicidal ideation, her reports of a suicide attempt, the reports that were received from nursing staff and from EMS, decision was made to place her on a 96-hour hold, as there was concerns patient was a danger to herself -96-hour hold paperwork filled out -Patient was placed on suicidal precautions, one-to-one sitter -Spoke to Dr. Doan, who will consult -We will monitor her as inpatient for intentional drug overdose, patient takes Topamax, trazodone, risperidone we will have to monitor Vitals/I&O/Wt Last Vital Signs Temp 97.8 F 12/24/22 08:00 Pulse 75 12/24/22 08:00 Resp 18 12/24/22 08:00 BP 133/84 12/24/22 08:00 Pulse Ox 93 12/24/22 08:00 O2 Del Method Room Air 12/24/22 04:00 O2 Flow Rate 2 12/24/22 08:00 12/23/22 12/24/22 12/24/22 22:59 06:59 14:59 Intake Total 2160 / 2160 890 / 890 Output Total 1550 / 1550 Balance 2160 / 2160 -1550 / 610 890 / 890 Weight last 48 hrs Weight 83.915 kg Physical Exam Const: COMMON NORMALS: no acute distress Eye: COMMON NORMALS: Equal, round and reactive pupils present PUPIL: Yes Equal, round and reactive pupils present Resp: COMMON NORMALS: normal respiratory effort, No retractions, No use of accessory muscles and clear to auscultation bilaterally AUSCULTATION: clear to auscultation bilaterally Cardio: COMMON NORMALS: regular rate, regular rhythm, S1 normal heart sound present and S2 normal heart sound present RATE: regular rate RHYTHM: regular rhythm HEART SOUNDS: S1 normal heart sound present and S2 normal heart sound present GI: COMMON NORMALS: Normal to inspection, nondistended, normoactive bowel sounds present, non-tender and no masses Extremity: COMMON NORMALS: no pedal edema Neuro: OTHER: She follows commands, squeezes my fingers, wiggles her toes able to smile for me but is still quite drowsy Data 12/24/22 04:56 12/24/22 04:56 Micro: Microbiology 12/23/22 18:56 Blood Culture - Preliminary Blood SPECIMEN COLLECTED 12/23/22 18:56 Blood Culture - Preliminary Blood SPECIMEN COLLECTED A&P Assessment and plan (1) Altered mental status: (2) UTI (urinary tract infection): (3) Encephalopathy: (4) Amphetamine abuse: (5) Intentional drug overdose: (6) Suicide attempt: (7) Overdose of trazodone: (8) Intentional overdose of risperidone: Plan Altered mental status -Intentional drug overdose, suicide attempt -Unknown quantities of Topamax, trazodone, risperidone, fluoxetine -Initial EKG normal sinus rhythm, QRS 87 ms, QTc 440 ms -Mentation has significantly improved -Potentially she could be postictal, continue Keppra thousand every 24 hours -UTI she is on Rocephin -Head CT no acute findings, -No neck stiffness, she has a good neck range of motion, neck is supple, currently afebrile, -Her urine toxicology screen is positive for methamphetamines -Possible alcoholism, she does smell of alcohol, start CIWA protocol -Telemetry monitoring -Serial EKGs,ekg every 6 hours -suicide precautions, one on one sitter -monitor electrolytes -Neurochecks, aspiration precautions, nih stroke scale, seizure precautions -Full code -Lovenox for DVT prophylaxis Attestations Medical Necessity Statement*: Patient requires hospitalization for ams, suicide attempt, intentional drug overdose, inpatient, greater than 2 midnights Diagnoses Altered mental status R41.82 UTI (urinary tract infection) N39.0 Encephalopathy G93.40 Amphetamine abuse F15.10 Intentional drug overdose T50.902A Suicide attempt T14.91XA Overdose of trazodone T43.211A Intentional overdose of risperidone T43.592A
--- NOTE | 2022-12-24 13:00 | ECG_ITS ---
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 Measurements Intervals Todd Rate: 73 P: 68 SC: 156 QRS: 63 QRSD: 85 T: 68 QT: 403 QTc: 446 Interpretive Statements SINUS RHYTHM POSSIBLE LEFT ATRIAL ENLARGEMENT [-0.1mV P-WAVE IN V1/V2] Compared to ECG 12/23/2022 16:12:54 No significant changes Electronically Signed On 12-25-2022 11:27:58 CDT by Gege Blackwell M.D. [id number]
[2022-12-24] MEDS: pantoprazole 40 mg SDV IVP (17:34)
[2022-12-24] MEDS: enoxaparin 40 mg/0.4 mL Syringe SUBCUT (17:59)
[2022-12-24] MEDS: cefTRIAXone 1,000 MG in sodium chloride 0.9% (plus) 50 ML 100 MG IV (18:00)
[2022-12-25] VITALS (7 sets, daily range): BP systolic 134–147; BP diastolic 78–96; PULSE 73–88; RESP 16–20; TEMP 36.3–37; O2SAT 95–97; BMI 29.8
[2022-12-25 04:12] LABS: Basophils # 0.1 10^3/uL (0.0-0.1); Basophils % 0.8 %; Eosinophils # 0.2 10^3/uL (0.0-0.8); Eosinophils % 2.5 %; Hematocrit 45.6 % (37.0-47.0); Hemoglobin 13.7 g/dL (11.5-15.3); Lymphocytes # 2.6 10^3/uL (0.8-4.8); Lymphocytes % 35.4 %; Mean Corpuscular Hemoglobin 29.7 pg (28.0-34.0); Mean Corpuscular Volume 98.7 fl (81-99); Mean Platelet Volume 10.3 fL (7.4-10.4); Monocytes # 0.7 10^3/uL (0.2-0.9); Monocytes % 10.1 %; Neutrophils # 3.69 10^3/uL (1.8-7.7); Neutrophils % 50.9 %; Nucleated Red Blood Cells % 0 %; Platelet Count 334 10^3/cmm (130-400); Red Blood Count 4.62 10^6/uL (4.1-5.3); White Blood Count 7.3 10^3/uL (4.0-10.0)
[2022-12-25 04:43] LABS: Alanine Aminotransferase 10 U/L (0-33); Albumin Level 3.8 g/dL (3.5-5.2); Alkaline Phosphatase 116 U/L (35-105); Anion Gap 14.7 (5-19); Aspartate Amino Transferase 13 U/L (0-32); Blood Urea Nitrogen 10 mg/dL (6-20); Calcium 8.8 mg/dL (8.5-10.5); Carbon Dioxide 22 mmol/L (22-29); Chloride 110 mmol/L (98-107); Glomerular Filtration Rate 75.6 mL/min (90-130); Glucose 116 mg/dL (65-115); Magnesium 2.2 mg/dL (1.7-2.3); Osmolality Calculated 294 mOsm/kg (285-295); Potassium 4.7 mmol/L (3.5-5.1); Sodium 142 mmol/L (136-145); Total Bilirubin 0.3 mg/dL (0.15-1.2); Total Protein 6.8 g/dL (6.6-8.7)
[2022-12-25] MEDS: multivitamin therapeutic Tablet 1 TAB PO (08:53)
[2022-12-25] MEDS: folic acid 1 mg Tablet PO (08:53)
[2022-12-25] MEDS: thiamine 100 mg Tablet PO (08:53)
--- NOTE | 2022-12-25 09:11 | W.PM.NPUPNS ---
Subjective NPU Subjective: Patient presented today reporting that she was feeling better. She seemed a little more capable of answering questions but still was mostly answering yes with a sort of quirkiness. We discussed the 96-hour hold again and the fact that she was going to be medically cleared. We discussed the plan to transfer her down to the neuropsychiatric unit and start daily with the addiction, lethality medications and aftercare. She signified that she was okay with that plan. Mental Status Exam MSE Comments: This is an obese white female looking older than her stated age in hospital gown with poor grooming/hygiene and eye contact. No abnormal movements except for psychomotor retardation. Mostly cooperative with exam in mild to moderate distress. Speech was decreased rate and volume with some slurring/dysarthria. Mood described as really depressed, affect is congruent and odd. Thought process, disorganized. Thought content: patient denies suicidal or homicidal ideation, she has limited capacity to answer questions due to thought disorder and lethargy so did not report delusions but appeared paranoid, and possibly attending to internal stimuli. Attention and concentration are impaired and memory was mostly unreliable but none were formally tested. She is alert and oriented to person. Insight, judgment and impulse control are impaired. Vitals/I&O/Wt Last Vital Signs Temp 97.3 F L 12/25/22 08:00 Pulse 73 12/25/22 08:00 Resp 17 12/25/22 08:00 BP 137/93 12/25/22 08:00 Pulse Ox 96 12/25/22 08:00 O2 Del Method Room Air 12/25/22 08:00 O2 Flow Rate 2 12/24/22 08:00 12/24/22 12/25/22 12/25/22 22:59 06:59 14:59 Intake Total 1290 / 2180 120 / 2300 Output Total 850 / 850 Balance 440 / 1330 120 / 1450 Weight last 48 hrs Weight 83.915 kg Data NPU 12/25/22 03:05 12/25/22 03:05 Micro: Microbiology 12/23/22 18:56 Blood Culture - Preliminary Blood NEGATIVE TO DATE 12/23/22 18:56 Blood Culture - Preliminary Blood NEGATIVE TO DATE Microbiology 12/23/22 18:56 Blood Blood Culture - Preliminary NEGATIVE TO DATE 12/23/22 18:56 Blood Blood Culture - Preliminary NEGATIVE TO DATE A&P Assessment and plan (1) Major depressive disorder, recurrent: (2) PTSD (post-traumatic stress disorder): (3) Intentional overdose of risperidone: (4) Overdose of trazodone: (5) Suicide attempt: (6) Intentional drug overdose: (7) Altered mental status: (8) UTI (urinary tract infection): (9) Encephalopathy: (10) Methamphetamine use disorder, severe: (11) Nicotine dependence: Plan This is a 52 year old white female with a significant history of trauma and genetic loading for mental health, addiction and lethality issues, known through previous admission who presents off of her medications, with active methamphetamine use, significant thought disorder and recent intentional overdose/suicide attempt. 1. Recommend restarting Prozac at 20 mg and starting Invega 6 mg p.o. daily. 2. Transfer to neuropsychiatric unit. 3. Begin every 15 minute observation when she gets to the neuropsychiatric unit. 4. Encourage individual, group and milieu therapy. 5. Encourage sober living treatment after discharge at the highest level of care to which she is willing to commit. Involuntary Hold Information 96 Hour Hold: 96 Hour Involuntary Admission: No Attestations NPU Medical Necessity Statement*: Inpatient hospitalization is medically necessary and the clinically appropriate intervention at this time. We will monitor medications and make changes as indicated. Patient will be in the hospital for over two midnights. Likely length of stay is 4-6 days. Coding Level of Care Code Acute Code for [facility] Diagnoses Major depressive disorder, recurrent F33.9 PTSD (post-traumatic stress disorder) F43.10 Intentional overdose of risperidone T43.592A Overdose of trazodone T43.211A Suicide attempt T14.91XA Intentional drug overdose T50.902A Altered mental status R41.82 UTI (urinary tract infection) N39.0 Encephalopathy G93.40 Methamphetamine use disorder, severe F15.20 Nicotine dependence F17.200
--- NOTE | 2022-12-25 16:21 | P.PN_ITS ---
Subjective Subjective: - Patient was seen this morning -She denies any active suicidal ideation, denies any active homicidal ideation -She again confirms with me that she attempted to commit suicide, by taking too many of her pills, she thinks she took too much of the fluoxetine and the Topamax -She tells me she uses Topamax for seizures -She is not had any headache, blurry vision, no nausea, no vomiting Vitals/I&O/Wt Last Vital Signs Temp 98.2 F 12/25/22 14:23 Pulse 88 12/25/22 14:23 Resp 18 12/25/22 14:23 BP 137/89 12/25/22 14:23 Pulse Ox 96 12/25/22 14:23 O2 Del Method Room Air 12/25/22 14:23 O2 Flow Rate 2 12/25/22 08:00 12/25/22 12/25/22 12/25/22 06:59 14:59 22:59 Intake Total 120 / 2300 950 / 950 Output Total 1600 / 1600 Balance 120 / 1450 -650 / -650 Weight last 48 hrs Weight 83.915 kg Physical Exam Const: COMMON NORMALS: no acute distress and patient oriented x3 Resp: COMMON NORMALS: normal respiratory effort, No retractions, No use of accessory muscles and clear to auscultation bilaterally AUSCULTATION: clear to auscultation bilaterally Cardio: COMMON NORMALS: regular rate, regular rhythm, S1 normal heart sound p resent and S2 normal heart sound present RATE: regular rate RHYTHM: regular rhythm HEART SOUNDS: S1 normal heart sound present and S2 normal heart sound present GI: COMMON NORMALS: Normal to inspection, nondistended, normoactive bowel sounds present and non-tender Extremity: COMMON NORMALS: no pedal edema Neuro: COMMON NORMALS: patient oriented x3 Psych: COMMON NORMALS: mental status grossly normal Data 12/25/22 03:05 12/25/22 03:05 Micro: Microbiology 12/23/22 16:31 Urine Culture - Preliminary Urine,Clean Catch Gram Negative Rods 12/23/22 18:56 Blood Culture - Preliminary Blood NEGATIVE TO DATE 12/23/22 18:56 Blood Culture - Preliminary Blood NEGATIVE TO DATE A&P Assessment and plan (1) Major depressive disorder, recurrent: (2) PTSD (post-traumatic stress disorder): (3) Intentional overdose of risperidone: (4) Overdose of trazodone: (5) Suicide attempt: (6) Intentional drug overdose: (7) Altered mental status: (8) UTI (urinary tract infection): (9) Encephalopathy: (10) Methamphetamine use disorder, severe: (11) Nicotine dependence: Plan Altered mental status -Intentional drug overdose, suicide attempt -Unknown quantities of Topamax, fluoxetine -Initial EKG normal sinus rhythm, QRS 87 ms, QTc 440 ms -Mentation has significantly improved, back to baseline -Given concerns for Topamax withdrawal and she is asymptomatic we will resume this evening -UTI, continue cefdinir -Head CT no acute findings, -No neck stiffness, she has a good neck range of motion, neck is supple, currently afebrile, -Her urine toxicology screen is positive for methamphetamines -Possible alcoholism, she does smell of alcohol, start CIWA protocol -Telemetry monitoring -suicide precautions, one on one sitter -monitor electrolytes -Neurochecks, aspiration precautions, nih stroke scale, seizure precautions -Full code -Lovenox for DVT prophylaxis Spoke to Dr. Doan, will transfer to [facility]PU, spoke to nursing staff, remove Tristan catheter, switch to p.o. antibiotics stop IV Keppra Attestations Medical Necessity Statement*: Patient requires hospitalization, inpatient for suicide attempt, intentional drug overdose, requiring transfer to neuropsychiatric unit Diagnoses Major depressive disorder, recurrent F33.9 PTSD (post-traumatic stress disorder) F43.10 Intentional overdose of risperidone T43.592A Overdose of trazodone T43.211A Suicide attempt T14.91XA Intentional drug overdose T50.902A Altered mental status R41.82 UTI (urinary tract infection) N39.0 Encephalopathy G93.40 Methamphetamine use disorder, severe F15.20 Nicotine dependence F17.200
[2022-12-25] MEDS: topiramate 100 mg Tablet PO (17:33)
[2022-12-25] MEDS: hyDROXYzine 25 mg Capsule 50 MG PO (17:35)
[2022-12-25] MEDS: nicotine 4 mg lozenge MUCOUS MEM (18:39)
[2022-12-25] MEDS: trazodone 50 mg Tablet PO (20:36)
[2022-12-25] MEDS: acetaminophen 325 mg Tablet 650 MG PO (21:25)
[2022-12-26 06:00] VITALS: BP 128/79; PULSE 72; RESP 18; TEMP 36.6; O2SAT 97
[2022-12-26] MEDS: thiamine 100 mg Tablet PO (08:59)
[2022-12-26] MEDS: topiramate 100 mg Tablet PO ×2 (08:59→17:23)
[2022-12-26] MEDS: cefdinir 300 MG CAPSULE PO ×2 (08:59→17:23)
[2022-12-26] MEDS: multivitamin therapeutic Tablet 1 TAB PO (08:59)
[2022-12-26] MEDS: fluoxetine 20 mg Capsule 40 MG PO (08:59)
[2022-12-26] MEDS: folic acid 1 mg Tablet PO (08:59)
--- NOTE | 2022-12-26 09:35 | PC.NURSE ---
Patient refused blood draw this AM. Patient stated that the health editor could look, but could not stick her. Patient was adament that she was not going to let us put a needle near her. Dr. Loya notified.
--- NOTE | 2022-12-26 12:17 | PC.PT ---
Patient seen earlier this morning by occupational therapist, who visited with patient, patient stating walker is fitting her well, and no further needs of intervention. No further intervention planned at this time. DC PT order for fitting of walker, which theoretically could be done by any [employer] or other healthcare professional.
[2022-12-26] MEDS: paliperidone ER 6 mg Tablet PO (13:40)
[2022-12-26 14:00] VITALS: BP 111/68; PULSE 75; RESP 18; TEMP 36.6; O2SAT 95
--- NOTE | 2022-12-26 16:11 | P.NPUPN_ITS ---
Subjective NPU Subjective: Patient presented today reporting that she is just kind of getting up. For the first time since has been here she was more communicative and able to have a more normal question answer process. She identified the importance of her getting refocused on her recovery both mental health and addiction henderson. She reported tolerating the restarting of medications. She is working with the social work team on treatment options. Mental Status Exam MSE Comments: This is an obese white female looking older than her stated age in hospital gown with poor grooming/hygiene and eye contact. No abnormal movements except for psychomotor retardation. Cooperative with exam in mild distress. Speech was dec reased rate and volume. Mood described as a little better, affect is congruent and less confused. Thought process, more organized. Thought content: patient denies suicidal or homicidal ideation, there were no delusions reported and she appeared less paranoid, she denied auditory or visual hallucinations and did not appear to be attending to internal stimuli. Attention and concentration appeared more intact and memory was more reliable but none were formally tested. She is alert and oriented to person and place. Insight and judgment are limited but improving and impulse control is impaired.. Vitals/I&O/Wt Last Vital Signs Temp 97.9 F 12/26/22 14:00 Pulse 75 12/26/22 14:00 Resp 18 12/26/22 14:00 BP 111/68 12/26/22 14:00 Pulse Ox 95 12/26/22 14:00 O2 Del Method Room Air 12/26/22 14:00 O2 Flow Rate 2 12/26/22 08:00 Weight last 48 hrs Weight 83.915 kg Data NPU 12/25/22 03:05 12/25/22 03:05 Micro: Microbiology 12/23/22 16:31 Urine Culture - Final Urine,Clean Catch Escherichia coli Microbiology 12/23/22 16:31 Urine,Clean Catch Urine Culture - Final Escherichia coli A&P Assessment and plan (1) Major depressive disorder, recurrent: (2) PTSD (post-traumatic stress disorder): (3) Intentional overdose of risperidone: (4) Overdose of trazodone: (5) Suicide attempt: (6) Intentional drug overdose: (7) Altered mental status: (8) UTI (urinary tract infection): (9) Encephalopathy: (10) Methamphetamine use disorder, severe: (11) Nicotine dependence: Plan This is a 52 year old white female with a significant history of trauma and genetic loading for mental health, addiction and lethality issues, known through previous admission who presents off of her medications, with active methamph etamine use, significant thought disorder and recent intentional overdose/suicide attempt. 1. Continue current medications including restarted Prozac at 20 mg and started Invega 6 mg p.o. daily. 2. Transfer to neuropsychiatric unit. 3. Begin every 15 minute observation when she gets to the neuropsychiatric unit. 4. Encourage individual, group and milieu therapy. 5. Encourage sober living treatment after discharge at the highest level of care to which she is willing to commit. Involuntary Hold Information 96 Hour Hold: 96 Hour Involuntary Admission: No Attestations NPU Medical Necessity Statement*: Inpatient hospitalization is medically necessary and the clinically appropriate intervention at this time. We will monitor medications and make changes as indicated. Likely length of stay is 4-6 days. Coding Level of Care Code Acute Code for [facility] Diagnoses Major depressive disorder, recurrent F33.9 PTSD (post-traumatic stress disorder) F43.10 Intentional overdose of risperidone T43.592A Overdose of trazodone T43.211A Suicide attempt T14.91XA Intentional drug overdose T50.902A Altered mental status R41.82 UTI (urinary tract infection) N39.0 Encephalopathy G93.40 Methamphetamine use disorder, severe F15.20 Nicotine dependence F17.200
[2022-12-26 19:35] VITALS: BP 139/85; PULSE 86; RESP 20; TEMP 36.6; O2SAT 96
[2022-12-26] MEDS: nicotine 4 mg lozenge MUCOUS MEM (23:48)
[2022-12-26] MEDS: trazodone 50 mg Tablet PO (23:48)
[2022-12-27 06:00] VITALS: BP 121/83; PULSE 88; RESP 16; O2SAT 96
[2022-12-27] MEDS: fluoxetine 20 mg Capsule PO (08:23)
[2022-12-27] MEDS: paliperidone ER 6 mg Tablet PO (08:23)
[2022-12-27] MEDS: folic acid 1 mg Tablet PO (08:23)
[2022-12-27] MEDS: thiamine 100 mg Tablet PO (08:23)
[2022-12-27] MEDS: lisinopril 20 mg Tablet PO (08:23)
[2022-12-27] MEDS: multivitamin therapeutic Tablet 1 TAB PO (08:23)
[2022-12-27] MEDS: cefdinir 300 MG CAPSULE PO ×2 (08:24→17:32)
[2022-12-27] MEDS: topiramate 100 mg Tablet PO ×2 (08:24→17:32)
[2022-12-27] MEDS: pantoprazole DR 40 mg Tablet PO (08:24)
[2022-12-27] MEDS: nicotine 21 mg Patch 1 PATCH TRANSDERMA (08:28)
[2022-12-27 14:00] VITALS: BP 140/80; PULSE 86; RESP 18; TEMP 36.6; O2SAT 98
--- NOTE | 2022-12-27 14:46 | P.NPUPN_ITS ---
Subjective NPU Subjective: Patient presented today reporting that she is starting to feel better. She reports that she is tolerating the medications well and working with the social work team on outpatient follow-up and sober living treatment. She reports that the rolling walker she has has been for regaining her stability here and that she does not use anything for leverage outside of the hospital. We discussed t he likelihood of discharge in the next 48 hours. Mental Status Exam MSE Comments: This is an obese white female looking older than her stated age in hospital scrubs with improving grooming/hygiene and eye contact. No abnormal movements except for mild psychomotor retardation. Cooperative with exam in mild distress. Speech was more normal rate and volume. Mood described as a little better, affect is congruent. Thought process, more organized. Thought content: patient denies suicidal or homicidal ideation, there were no delusions reported and she appeared less paranoid, she denied auditory or visual hallucinations and did not appear to be attending to internal stimuli. Attention and concentration appeared more intact and memory was more reliable but none were formally tested. She is alert and oriented to person and place. Insight and judgment are limited but improving and impulse control is impaired.. Vitals/I&O/Wt Last Vital Signs Temp 97.8 F 12/27/22 14:00 Pulse 86 12/27/22 14:00 Resp 18 12/27/22 14:00 BP 140/80 12/27/22 14:00 Pulse Ox 98 12/27/22 14:00 O2 Del Method Room Air 12/27/22 14:00 O2 Flow Rate 2 12/26/22 08:00 12/26/22 12/27/22 12/27/22 22:59 06:59 14:59 Intake Total 480 / 480 Output Total 1600 / 1600 Balance -1120 / -1120 Data NPU 12/25/22 03:05 12/25/22 03:05 Micro: Microbiology 12/23/22 16:31 Urine Culture - Final Urine,Clean Catch Escherichia coli Microbiology 12/23/22 16:31 Urine,Clean Catch Urine Culture - Final Escherichia coli A&P Assessment and plan (1) Major depressive disorder, recurrent: (2) PTSD (post-traumatic stress disorder): (3) Intentional overdose of risperidone: (4) Overdose of trazodone: (5) Suicide attempt: (6) Intentional drug overdose: (7) Altered mental status: (8) UTI (urinary tract infection): (9) Encephalopathy: (10) Methamphetamine use disorder, severe: (11) Nicotine dependence: Plan This is a 52 year old white female with a significant history of trauma and genetic loading for mental health, addiction and lethality issues, known through previous admission who presents off of her medications, with active methamphetamine use, significant thought disorder and recent intentional overdose/suicide attempt. 1. Continue current medications including restarted Prozac at 20 mg and started Invega 6 mg p.o. daily. 2. Transfer to neuropsychiatric unit. 3. Begin every 15 minute observation when she gets to the neuropsychiatric unit. 4. Encourage individual, group and milieu therapy. 5. Encourage sober living treatment after discharge at the highest level of care to which she is willing to commit. Involuntary Hold Information 96 Hour Hold: 96 Hour Involuntary Admission: No Attestations NPU Medical Necessity Statement*: Inpatient hospitalization is medically necessary and the clinically appropriate intervention at this time. We will monitor medications and make changes as indicated. Likely length of stay is 1-3 days. Coding Level of Care Code Acute Code for [facility] Fwd Diagnoses Major depressive disorder, recurrent F33.9 PTSD (post-traumatic stress disorder) F43.10 Intentional overdose of risperidone T43.592A Overdose of trazodone T43.211A Suicide attempt T14.91XA Intentional drug overdose T50.902A Altered mental status R41.82 UTI (urinary tract infection) N39.0 Encephalopathy G93.40 Methamphetamine use disorder, severe F15.20 Nicotine dependence F17.200
[2022-12-27] MEDS: ibuprofen 600 mg Tablet PO (16:07)
[2022-12-27] MEDS: benzocaine 20% 7 gm 1 APPLIC MUCOUS MEM (16:08)
[2022-12-27 20:38] VITALS: BP 110/73; PULSE 92; RESP 15; TEMP 36.7; O2SAT 94
[2022-12-28] MEDS: nicotine 4 mg lozenge MUCOUS MEM (01:39)
[2022-12-28] MEDS: trazodone 50 mg Tablet PO ×2 (01:39→20:24)
[2022-12-28 06:00] VITALS: BP 90/60; PULSE 78; RESP 15; O2SAT 93
[2022-12-28] MEDS: thiamine 100 mg Tablet PO (08:42)
[2022-12-28] MEDS: topiramate 100 mg Tablet PO ×2 (08:42→17:23)
[2022-12-28] MEDS: lisinopril 20 mg Tablet PO (08:43)
[2022-12-28] MEDS: paliperidone ER 6 mg Tablet PO (08:43)
[2022-12-28] MEDS: pantoprazole DR 40 mg Tablet PO (08:43)
[2022-12-28] MEDS: fluoxetine 20 mg Capsule PO (08:43)
[2022-12-28] MEDS: cefdinir 300 MG CAPSULE PO ×2 (08:43→17:21)
[2022-12-28] MEDS: ibuprofen 600 mg Tablet PO ×2 (08:43→20:23)
[2022-12-28] MEDS: folic acid 1 mg Tablet PO (08:43)
[2022-12-28] MEDS: multivitamin therapeutic Tablet 1 TAB PO (08:43)
[2022-12-28] MEDS: nicotine 21 mg Patch 1 PATCH TRANSDERMA (08:49)
[2022-12-28 14:00] VITALS: BP 98/63; PULSE 76; RESP 16; TEMP 36.8; O2SAT 96
--- NOTE | 2022-12-28 18:51 | P.NPUPN_ITS ---
Subjective NPU Subjective: Patient presented today reporting that she is continuing to feel better. She had some reports of identifying her drug use is being related to her baby's father. However we did discuss the importance of acknowledging her choices and the power she has choosing differently. She reports feeling safe and working with the social work team for a appropriate discharge plan. We discussed discharge in the morning. Mental Status Exam MSE Comments: This is an obese white female looking older than her stated age in hospital scrubs with improving grooming/hygiene and eye contact. No abnormal movements except for mild psychomotor retardation. Cooperative with exam in mild distress. Speech was more normal rate and volume. Mood described as a little better, affect is congruent. Thought process, more organized. Thought content: patient denies suicidal or homicidal ideation, there were no delusions reported and she appeared less paranoid, she denied auditory or visual hallucinations and did not appear to be attending to internal stimuli. Attention and concentration appeared more intact and memory was more reliable but none were formally tested. She is alert and oriented to person and place. Insight and judgment are limited but improving and impulse control is impaired.. Vitals/I&O/Wt Last Vital Signs Temp 97.9 F 12/28/22 20:23 Pulse 82 12/28/22 20:23 Resp 18 12/28/22 20:23 BP 87/55 12/28/22 20:23 Pulse Ox 96 12/28/22 20:23 O2 Del Method Room Air 12/28/22 20:23 O2 Flow Rate 2 12/26/22 08:00 Data NPU 12/25/22 03:05 12/25/22 03:05 Micro: Microbiology 12/23/22 18:56 Blood Culture - Final Blood NO GROWTH AFTER 5 DAYS 12/23/22 18:56 Blood Culture - Final Blood NO GROWTH AFTER 5 DAYS Microbiology 12/23/22 18:56 Blood Blood Culture - Final NO GROWTH AFTER 5 DAYS 12/23/22 18:56 Blood Blood Culture - Final NO GROWTH AFTER 5 DAYS A&P Assessment and plan (1) Major depressive disorder, recurrent: (2) PTSD (post-traumatic stress disorder): (3) Intentional overdose of risperidone: (4) Overdose of trazodone: (5) Suicide attempt: (6) Intentional drug overdose: (7) Altered mental status: (8) UTI (urinary tract infection): (9) Encephalopathy: (10) Methamphetamine use disorder, severe: (11) Nicotine dependence: Plan This is a 52 year old white female with a significant history of trauma and genetic loading for mental health, addiction and lethality issues, known through previous admission who presents off of her medications, with active methamphetamine use, significant thought disorder and recent intentional overdos e/suicide attempt. 1. Continue current medications including restarted Prozac at 20 mg and starte d Invega 6 mg p.o. daily. 2. Transfer to neuropsychiatric unit. 3. Begin every 15 minute observation when she gets to the neuropsychiatric unit. 4. Encourage individual, group and milieu therapy. 5. Encourage sober living treatment after discharge at the highest level of care to which she is willing to commit. Involuntary Hold Information 96 Hour Hold: 96 Hour Involuntary Admission: No Attestations NPU Medical Necessity Statement*: Inpatient hospitalization is medically necessary and the clinically appropriate intervention at this time. We will monitor medications and make changes as indicated. Tentative plan for discharge tomorrow. Coding Level of Care Code Acute Code for [facility] Diagnoses Major depressive disorder, recurrent F33.9 PTSD (post-traumatic stress disorder) F43.10 Intentional overdose of risperidone T43.592A Overdose of trazodone T43.211A Suicide attempt T14.91XA Intentional drug overdose T50.902A Altered mental status R41.82 UTI (urinary tract infection) N39.0 Encephalopathy G93.40 Methamphetamine use disorder, severe F15.20 Nicotine dependence F17.200
[2022-12-28 20:23] VITALS: BP 87/55; PULSE 82; RESP 18; TEMP 36.6; O2SAT 96
[2022-12-29] MEDS: hyDROXYzine 25 mg Capsule 50 MG PO (01:30)
[2022-12-29 06:00] VITALS: BP 91/51; PULSE 75; RESP 15; O2SAT 94
[2022-12-29] MEDS: topiramate 100 mg Tablet PO (09:16)
[2022-12-29] MEDS: pantoprazole DR 40 mg Tablet PO (09:16)
[2022-12-29] MEDS: lisinopril 20 mg Tablet PO (09:16)
[2022-12-29] MEDS: folic acid 1 mg Tablet PO (09:16)
[2022-12-29] MEDS: fluoxetine 20 mg Capsule PO (09:16)
[2022-12-29] MEDS: cefdinir 300 MG CAPSULE PO (09:16)
[2022-12-29] MEDS: thiamine 100 mg Tablet PO (09:16)
[2022-12-29] MEDS: multivitamin therapeutic Tablet 1 TAB PO (09:17)
[2022-12-29] MEDS: paliperidone ER 6 mg Tablet PO (09:17)
[2022-12-29] MEDS: nicotine 21 mg Patch 1 PATCH TRANSDERMA (09:17)
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
[2022-12-29 13:51] VITALS: BP 91/51; PULSE 75; RESP 15; O2SAT 94
[2022-12-29 14:00] VITALS: BP 105/66; PULSE 81; RESP 16; TEMP 36.7; O2SAT 94
== END 2022-12-29 14:30 | disposition home or self-care (01) | DRG 918 ==
LOC: ER 18:24 → ER IP 18:39 → MEDSURG 19:44 → NP 12-26 06:41
PROVIDERS: Admitting Provider Family Medicine; Emergency Provider Family Medicine; PCP Family Medicine; Visit Provider Psychiatry & Neurology Psychiatry
DX: T43.212A Poisoning by selective serotonin and norepinephrine reuptake inhibitors, intentional self-harm, initial encounter (principal); N39.0 Urinary tract infection, site not specified; F33.2 Major depressive disorder, recurrent severe without psychotic features; G93.40 Encephalopathy, unspecified; R45.851 Suicidal ideations; T43.592A Poisoning by other antipsychotics and neuroleptics, intentional self-harm, initial encounter; B96.20 Unspecified Escherichia coli [E. coli] as the cause of diseases classified elsewhere; F43.10 Post-traumatic stress disorder, unspecified; F17.210 Nicotine dependence, cigarettes, uncomplicated; F15.10 Other stimulant abuse, uncomplicated; J45.909 Unspecified asthma, uncomplicated; I10 Essential (primary) hypertension; G40.909 Epilepsy, unspecified, not intractable, without status epilepticus; F10.90 Alcohol use, unspecified, uncomplicated
CPT/HCPCS: 36415; 36600; 70450; 71045; 80051; 80053; 80178; 80306; 80307; 81001; 82140; 82330; 82550; 82553; 82805; 83605; 83690; 83735; 84100; 84145; 84443; 84484; 84703; 85025; 85610; 86140; 87040; 87077; 87086; 87186; 92523; 92610; 93005; 96372; 97165; 99238; 99285; C9113; G0378; J0696; J1650; J1953; J3411; J7030

== ENCOUNTER → 2023-02-13 10:57 | Outpatient (BNVA) | payer BC, SELFPAY | PROVIDERS: PCP Family Medicine; Visit Provider Nurse Practitioner Psychiatric/Mental Health | DX: Z79.899 Other long term (current) drug therapy (principal); F15.20 Other stimulant dependence, uncomplicated; F33.3 Major depressive disorder, recurrent, severe with psychotic symptoms; F43.10 Post-traumatic stress disorder, unspecified; G25.71 Drug induced akathisia; R41.89 Other symptoms and signs involving cognitive functions and awareness | CPT/HCPCS: 80307; 81001 ==

== ENCOUNTER 2023-02-14 00:15 | Emergency (ER) | payer BC, MEDICAID, SELFPAY ==
[2023-02-14 00:21] VITALS: BP 135/93; PULSE 85; RESP 18; TEMP 36.7; O2SAT 98; BMI 30.7
--- NOTE | 2023-02-14 00:46 | ECG_ITS ---
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 Measurements Intervals [place] Rate: 82 P: 76 CA: 162 QRS: 74 QRSD: 81 T: 70 QT: 371 QTc: 434 Interpretive Statements SINUS RHYTHM POSSIBLE RIGHT VENTRICULAR CONDUCTION DELAY [RSR (QR) IN V1/V2] Compared to ECG 12/24/2022 13:19:39 No significant changes Electronically Signed On 02-14-2023 9:46:32 CDT by Ney Acosta M.D. [email or web address]
--- NOTE | 2023-02-14 00:47 | ED.C_ITS ---
HPI - Psych General: Chief Complaint: Psychiatric Symptoms Stated Complaint: [facility] Sent\Meds problem Time Seen by Provider: 02/14/23 00:32 History of Present Illness: 52-year-old female endorses that she was sent [facility] to make sure I am okay. Patient has been seen at the behavioral health clinic today and had some changes made in her medications which she has not yet started. Patient does have a history of substance abuse disorder, hypertension, akathisia, cognitive impairment, and major depression disorder. Patient answers questions appropriately. Patient denies homicidal or suicidal thoughts. Review of Systems General: Reports: 10 or more systems reviewed and unremarkable except in HPI and below Card: Denies: chest pain Resp: Denies: dyspnea GI: Denies: nausea, vomiting, diarrhea or constipation : Denies: difficulty voiding Skin/Breast: Reports: other (Superficial bruising to the forearms) [facility] ED PFSH: Medical History (Updated 02/14/23 @ 01:53 by DENNY Pack) Akathisia Cognitive impairment Major depressive disorder, recurrent, severe with psychotic features History of Methamphetamine use disorder, severe Nicotine dependence Has been referred to [facility] for smoking cessation assistance Psychiatric care Social History Smoking and tobacco status: current every day smoker cigarettes Years cigarettes smoked: 35 Quit status (tobacco): not considering quitting Second hand smoke exposure: Yes Smoking risk assessment/counseling performed?: No Alcohol intake: never Desire information about alcohol rehabilitation?: No Counseling given: No Substance/Drug Use: never Desire information about substance/drug rehabilitation?: No Counseling given: No Physical Exam Const: COMMON NORMALS: alert HENMT: COMMON NORMALS: normocephalic HEAD & SCALP: normocephalic Neck/C-Spine: COMMON NORMALS: full ROM Resp: COMMON NORMALS: normal respiratory effort and clear to auscultation bilaterally AUSCULTATION: clear to auscultation bilaterally Cardio: COMMON NORMALS: regular rate and regular rhythm RATE: regular rate RHYTHM: regular rhythm GI: COMMON NORMALS: Soft to palpation and non-tender PALPATION: Yes Soft to palpation Back/Pelvis: COMMON NORMALS: thoracic and lumbar spine normal to inspection Extremity: COMMON NORMALS: normal to inspection and no pedal edema Neuro: SENSORIUM/ORIENTATION: Yes alert Skin: COMMON NORMALS: turgor normal GENERAL SKIN EXAM: turgor normal Course ED course: 0200, laboratory values were unremarkable. Patient denies any suicidal or homicidal thoughts. I discussed this with patient and recommended she follow-up with behavioral health counseling regarding her concerns for her medication. Patient states that [facility] told her that she was post to come to the emergency department and be admitted to the neuropsychiatric unit. I had no information regarding this and had no way of talking with [facility] at this time in the morning. I recommended patient follow-up with [facility] to discuss this further with their providers. That the change in the medication can be done outpatient. Vital Signs: Vital signs: Vital Signs Temperature 98.0 F 02/14/23 00:21 Pulse Rate 85 02/14/23 00:21 Respiratory Rate 18 02/14/23 00:21 Blood Pressure 135/93 02/14/23 00:21 Pulse Oximetry 98 02/14/23 00:21 Oxygen Delivery Me thod Room Air 02/14/23 00:21 MDM - Psych Medical Decision Making Patient was sent over to the emergency department for further evaluation from behavioral health care due to their inability to get blood work on her. Patient seemed a little confused although patient does have some cognitive impairments which this seems to be her baseline. Vital signs are normal. Lungs are clear to auscultation. No signs of severe illness or injury is noted. Patient does have some superficial bruising to her upper extremities. Differential diagnosis includes anemia, electrolyte imbalance, major depressive disorder, hypothyroidism. Laboratory values were unremarkable. Patient tells me that she was to be admitted to the [facility] to have her medications adjusted. My exam exhibits that patient has no signs of psychosis, or suicidal or homicidal thou ghts. Patient is not exhibiting any abnormal movements or severe agitation. Patient slept in the bed for most of the ER stay. I recommended patient follow back up with behavioral health counseling in the morning to talk with the psychiatrist about her concerns for medication changes as at this time there is no need for her to be admitted for these types of changes. Lab Data 02/14/23 00:59 02/14/23 00:59 Laboratory Results WBC 12.25 10^3/uL (3.29-11.43) H 02/14/23 00:59 RBC 4.83 10^6/uL (3.85-5.65) 02/14/23 00:59 Hgb 15.00 g/dL (11.27-16.99) 02/14/23 00:59 Hct 46.7 % (36-47) 02/14/23 00:59 MCV 96.7 fl (85-98) 02/14/23 00:59 MCH 31.1 pg (27-33) 02/14/23 00:59 MCHC 32.1 g/dL (30-55) 02/14/23 00:59 RDW 13.9 % (12.1-15.1) 02/14/23 00:59 Plt Count 347 10^3/cmm (157-399) 02/14/23 00:59 MPV 9.3 fL (7.4-10.4) 02/14/23 00:59 Neut % (Auto) 50.7 % 02/14/23 00:59 Lymph % (Auto) 38.5 % 02/14/23 00:59 [place] % (Auto) 7.7 % 02/14/23 00:59 Eos % (Auto) 2.0 % 02/14/23 00:59 Baso % (Auto) 0.9 % 02/14/23 00:59 Neut # (Auto) 6.21 10^3/uL (1.8-7.7) 02/14/23 00:59 Lymph # (Auto) 4.7 10^3/uL (0.8-4.8) 02/14/23 00:59 [place] # (Auto) 0.9 10^3/uL (0.2-0.9) 02/14/23 00:59 Eos # (Auto) 0.3 10^3/uL (0.0-0.8) 02/14/23 00:59 Baso # (Auto) 0.1 10^3/uL (0.0-0.1) 02/14/23 00:59 Nucleated RBC % (auto) 0 % 02/14/23 00:59 Nucleated RBCs # 0.0 /100WBC 02/14/23 00:59 Sodium 138 mmol/L (136-145) 02/14/23 00:59 Potassium 3.7 mmol/L (3.5-5.1) 02/14/23 00:59 Chloride 104 mmol/L (98-107) 02/14/23 00:59 Carbon Dioxide 23 mmol/L (22-29) 02/14/23 00:59 Anion Gap 14.7 (5-19) 02/14/23 00:59 BUN 25 mg/dL (6-20) H 02/14/23 00:59 Creatinine 0.7 mg/dL (0.5-0.9) 02/14/23 00:59 GFR Calculation 88.2 mL/min (90-130) L 02/14/23 00:59 Glucose 118 mg/dL (65-115) H 02/14/23 00:59 Calculated Osmolality 291 mOsm/kg (285-295) 02/14/23 00:59 Calcium 9.6 mg/dL (8.5-10.5) 02/14/23 00:59 Total Bilirubin 0.3 mg/dL (0.15-1.2) 02/14/23 00:59 AST 14 U/L (0-32) 02/14/23 00:59 ALT 11 U/L (0-33) 02/14/23 00:59 Alkaline Phosphatase 110 U/L (35-105) H 02/14/23 00:59 Total Protein 8.2 g/dL (6.6-8.7) 02/14/23 00:59 Albumin 4.6 g/dL (3.5-5.2) 02/14/23 00:59 Globulin 3.6 g/dL (1.3-4.6) 02/14/23 00:59 TSH 3.51 uIU/mL (0.27-4.20) 02/14/23 00:59 Urine Color Yellow (Yellow) 02/14/23 00:54 Urine Appearance Clear (CLEAR) 02/14/23 00:54 Urine pH 5 (5-7) 02/14/23 00:54 Ur Specific [place] 1.020 (1.005-1.030) 02/14/23 00:54 Urine Protein Neg (Negative) 02/14/23 00:54 Urine Glucose (UA) Norm (Normal) 02/14/23 00:54 Urine Ketones Negative (Negative) 02/14/23 00:54 Urine Blood 2+ (Negative) H 02/14/23 00:54 Urine Nitrate Negative (Negative) 02/14/23 00:54 Urine Bilirubin Neg (Negative) 02/14/23 00:54 Urine Urobilinogen Neg mg/dL (Negative) 02/14/23 00:54 Ur Leukocyte Esterase Trace (Negative) H 02/14/23 00:54 Urine RBC 0-4 /hpf (0-2) H 02/14/23 00:54 Urine WBC 5-10 /hpf (0-5) H 02/14/23 00:54 Ur Squamous Epith Cells 0-4 /hpf (0-5) H 02/14/23 00:54 Amorphous Sediment Not Reportable 02/14/23 00:54 Urine Bacteria 1+ /hpf (NONE) H 02/14/23 00:54 Salicylates < 0.3 mg/dL (3-10) L 02/14/23 00:59 Urine Opiates Screen Negative ng/mL (Negative) 02/14/23 00:54 Acetaminophen < 5.0 ug/mL (10-30) L 02/14/23 00:59 Ur Barbiturates Screen Negative ng/mL (Negative) 02/14/23 00:54 Ur Phencyclidine Scrn Negative ng/mL (Negative) 02/14/23 00:54 Ur Amphetamines Screen Negative ng/mL (Negative) 02/14/23 00:54 U Benzodiazepines Scrn Negative ng/mL (Negative) 02/14/23 00:54 Urine Cocaine Screen Negative ng/mL (Negative) 02/14/23 00:54 U Marijuana (THC) Screen Negative ng/mL (Negative) 02/14/23 00:54 Ethyl Alcohol < 10 mg/dL (0-10) 02/14/23 00:59 EKG Data EKG 1: EKG interpretation date: 02/14/23 EKG interpretation time: 00:58 Prior EKG tracings: not available for review Interpretation: EKG shows a sinus rhythm with a regular rate at [address] elevation or ectopy is noted. No prior exam was available for comparison. Computer generated interpretation: Sinus rhythm, possible right ventricular conduction delay, borderline EKG, unconfirmed report. Discharge Plan Discharge Patient Disposition: Home Clinical Impression: Akathisia, Cognitive impairment Condition: Stable Prescriptions: No Action albuterol sulfate [ProAir HFA] 90 mcg/actuation HFA aerosol inhaler 2 puff inhalation Q6H PRN (Reason: Shortness Of Breath Or Wheezing) mirtazapine 30 mg tablet 30 mg PO BEDTIME Qty: 30 3RF Rx Instructions: Take one tablet at bedtime paliperidone [Invega] 3 mg tablet extended release 24 hr 3 mg PO QAM Qty: 30 3RF Rx Instructions: Take one tablet every morning Topamax 100 mg tablet 100 mg PO BID 30 Days Qty: 60 3RF Rx Instructions: Take one tablet twice per day fluoxetine [Prozac] 40 mg capsule 40 mg PO .morning 30 Days Qty: 30 3RF Rx Instructions: Take one capsule every morning Zestril 20 mg tablet 20 mg PO DAILY Protonix 40 mg tablet,delayed release (DR/EC) 40 mg PO DAILY lisinopril 20 mg Tablet 20 mg PO DAILY 30 Days Qty: 30 1RF hydroxyzine pamoate 25 mg Capsule 50 mg PO Q6H PRN (Reason: Anxiety) 30 Days Qty: 30 1RF Vitamin B-1 (mononitrate) 100 mg Tablet 100 mg PO DAILY Qty: 30 1RF Discharge Orders: Discharge ED (Routine); Ordered 02/14/23 Ordered By: Rigo Segura Referrals: Kevin Cool MD [Primary Care Provider] - Discharge Diet: Usual diet Discharge Activity: Increase activity as tolerated Patient Instructions: Medical Clearance for Psychiatric Care (ED) Activity Restrictions/Additional Instructions: Continue with routine medications. Follow-up at the [facility] office in the morning to get clearance for the housing at the skilled nursing. Return to ER for new concerns or worsening symptoms such as high fever greater than 100.4, shortness of breath, or severe chest pain. Coding Level of Care Code ED Con[employer] Polisher for Swetha Mehta
[2023-02-14 01:16] LABS: Basophils # 0.1 10^3/uL (0.0-0.1); Basophils % 0.9 %; Eosinophils # 0.3 10^3/uL (0.0-0.8); Hematocrit 46.7 % (36-47); Lymphocytes # 4.7 10^3/uL (0.8-4.8); Lymphocytes % 38.5 %; Mean Corpuscular HGB Conc 32.1 g/dL (30-55); Mean Corpuscular Hemoglobin 31.1 pg (27-33); Mean Corpuscular Volume 96.7 fl (85-98); Mean Platelet Volume 9.3 fL (7.4-10.4); Monocytes # 0.9 10^3/uL (0.2-0.9); Monocytes % 7.7 %; Neutrophils # 6.21 10^3/uL (1.8-7.7); Neutrophils % 50.7 %; Nucleated Red Blood Cells % 0 %; Platelet Count 347 10^3/cmm (157-399); Red Blood Count 4.83 10^6/uL (3.85-5.65); Red Cell Distribution Width 13.9 % (12.1-15.1); White Blood Count 12.25 10^3/uL (3.29-11.43)
[2023-02-14 01:25] LABS: Add Urine Microscopic? YES; Bacteria Urine 1+ /hpf; Bilirubin Urine Neg (Negative); Blood Urine 2+ (Negative); Glucose Urine UA Norm (Normal); Ketones Urine Negative (Negative); Leukocyte Esterase Urine Trace (Negative); Nitrate Urine Negative (Negative); Protein Urine Neg (Negative); RBC Urine 0-4 /hpf (0-2); Squamous Epithelial Cell Urine 0-4 /hpf (0-5); Urine Appearance Clear (CLEAR); Urine Color Yellow (Yellow); Urobilinogen Urine Neg (Negative); pH Urine 5 (5-7)
[2023-02-14 01:26] LABS: Add Urine Culture? No
[2023-02-14 01:27] LABS: Amphetamines Screen Urine Negative (Negative); Barbiturates Screen Urine Negative (Negative); Benzodiazepines Screen Urine Negative (Negative); Cocaine Screen Urine Negative (Negative); Opiate Screen Urine Negative (Negative); PCP Screen Urine Negative (Negative); THC Screen Urine Negative (Negative)
[2023-02-14 01:48] LABS: Acetaminophen < 5.0 ug/mL (10-30); Alanine Aminotransferase 11 U/L (0-33); Albumin Level 4.6 g/dL (3.5-5.2); Alcohol Level < 10 mg/dL (0-10); Alkaline Phosphatase 110 U/L (35-105); Anion Gap 14.7 (5-19); Aspartate Amino Transferase 14 U/L (0-32); Blood Urea Nitrogen 25 mg/dL (6-20); Calcium 9.6 mg/dL (8.5-10.5); Carbon Dioxide 23 mmol/L (22-29); Chloride 104 mmol/L (98-107); Globulin 3.6 g/dL (1.3-4.6); Glomerular Filtration Rate 88.2 mL/min (90-130); Glucose 118 mg/dL (65-115); Osmolality Calculated 291 mOsm/kg (285-295); Potassium 3.7 mmol/L (3.5-5.1); Salicylate < 0.3 mg/dL (3-10); Sodium 138 mmol/L (136-145); Thyroid Stimulating Hormone 3.51 uIU/mL (0.27-4.20); Total Bilirubin 0.3 mg/dL (0.15-1.2); Total Protein 8.2 g/dL (6.6-8.7)
--- NOTE | 2023-02-14 02:11 | PC.NURSE ---
RN into room to discharge pt. Upon discharge, pt states, [facility] called you guys and told you I needed to stay here. This is ridiculous! RN informed pt that pt is medically cleared and is instructed to follow up with [facility] in the morning. Pt then gets up and states, What do I need to do then to stay? Just tell you I want to kill myself?! Pt then refused to sign papers and walked out, further stating, I will just step outside to smoke a cigarette and check back in. I will keep doing this until 8 AM when [facility] opens! Pt then walked into [facility] lobby.
[2023-02-14 02:18] VITALS: BP 135/93; PULSE 85; RESP 18; TEMP 36.7; O2SAT 98
== END 2023-02-14 02:20 | disposition home or self-care (01) ==
PROVIDERS: Emergency Provider Nurse Practitioner Family; PCP Family Medicine
DX: G25.71 Drug induced akathisia (principal); G31.84 Mild cognitive impairment of uncertain or unknown etiology; F17.210 Nicotine dependence, cigarettes, uncomplicated
CPT/HCPCS: 36415; 80053; 80306; 80307; 81001; 84443; 85025; 93005; 99284

== ENCOUNTER 2023-03-11 14:11 | Inpatient (IN) | payer BC, SELFPAY ==
[2023-03-11] VITALS (18 sets, daily range): BP systolic 76–114; BP diastolic 44–74; PULSE 84–122; RESP 12–26; TEMP 36.9; O2SAT 91–96
[2023-03-11] MEDS: naloxone 0.4 mg/ml SDV IVP (14:19)
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
--- NOTE | 2023-03-11 14:24 | ECG_ITS ---
[facility] Test Date: 2023-03-11 Pat Name: Annie Montoya Department: Room: Gender: Female Drapery Hemmer Automatic: : 1970 Requested By: Francisco Sutton Order Number: [id number] Ken MD: Ney Acosta M.D. Measurements Intervals [place] Rate: 112 P: 63 CA: 134 QRS: 62 QRSD: 89 T: 62 QT: 409 QTc: 560 Interpretive Statements SINUS TACHYCARDIA POSSIBLE RIGHT VENTRICULAR CONDUCTION DELAY [RSR (QR) IN V1/V2] Compared to ECG 02/14/2023 00:46:10 Sinus rhythm no longer present Electronically Signed On 03-12-2023 22:54:18 CDT by Ney Acosta M.D. [email or web address]
[2023-03-11 14:50] LABS: Basophils # 0.1 10^3/uL (0.0-0.1); Basophils % 0.7 %; Eosinophils # 0.1 10^3/uL (0.0-0.8); Eosinophils % 0.7 %; Hematocrit 39.7 % (36-47); Lymphocytes # 2.8 10^3/uL (0.8-4.8); Lymphocytes % 22.3 %; Mean Corpuscular HGB Conc 32.2 g/dL (30-55); Mean Corpuscular Hemoglobin 31.7 pg (27-33); Mean Corpuscular Volume 98.3 fl (85-98); Mean Platelet Volume 9.7 fL (7.4-10.4); Monocytes # 1.1 10^3/uL (0.2-0.9); Monocytes % 8.2 %; Neutrophils # 8.65 10^3/uL (1.8-7.7); Neutrophils % 67.9 %; Nucleated Red Blood Cells % 0 %; Platelet Count 287 10^3/cmm (157-399); Red Blood Count 4.04 10^6/uL (3.85-5.65); Red Cell Distribution Width 13.3 % (12.1-15.1); White Blood Count 12.75 10^3/uL (3.29-11.43)
[2023-03-11] MEDS: sodium chloride 0.9% 1,000 ML 999 ML IV (14:50)
[2023-03-11 14:58] LABS: Add Urine Microscopic? YES; Bacteria Urine TRACE /hpf; Bilirubin Urine Neg (Negative); Blood Urine Neg (Negative); Glucose Urine UA Norm (Normal); Ketones Urine 1+ (Negative); Leukocyte Esterase Urine Trace (Negative); Mucus Urine TRACE /hpf; Nitrate Urine Negative (Negative); Protein Urine Trace (Negative); RBC Urine 0-4 /hpf (0-2); Specific Gravity, Urine 1.025 (1.005-1.030); Squamous Epithelial Cell Urine 0-4 /hpf (0-5); Urine Appearance Clear (CLEAR); Urine Color Yellow (Yellow); Urobilinogen Urine 1 mg/dL (Negative); WBC Urine 0-4 /hpf (0-5); pH Urine 5 (5-7)
[2023-03-11 14:59] LABS: Add Urine Culture? No
[2023-03-11 15:00] LABS: Amphetamines Screen Urine Positive (Negative); Barbiturates Screen Urine Negative (Negative); Benzodiazepines Screen Urine Negative (Negative); Cocaine Screen Urine Negative (Negative); Opiate Screen Urine Negative (Negative); PCP Screen Urine Negative (Negative); THC Screen Urine Negative (Negative)
--- NOTE | 2023-03-11 15:02 | PC.PHAR ---
UNABLE TO VERIFY MEDICATIONS WITH PT-MEDICATIONS ENTERED ARE FROM WHAT EXT HISTORY SHOWS HAS BEEN FILLED RECENTLY [facility] IS CLOSED ON SAT UNABLE TO CALL TO VERIFY WHATS BEEN FILLED RECENTLY SOMETIMES EXT DOESNT LINK WITH WHATS BEEN FILLED RECENTLY-RX WRITTEN ON 02/13/23 FOR INVEGA 3MG DAILY -EXT DOESNT SHOW INVEGA 3MG QAM FILLED EXT SHOWS INVEGA 6MG DAILY FILLED 02/07/23 30D/S-NOTES ARE MADE IN THE PHARMACY COMMENTS
[2023-03-11 15:03] LABS: INR 1.21 (0.8-1.2)
[2023-03-11 15:09] LABS: Alanine Aminotransferase 12 U/L (0-33); Albumin Level 4.2 g/dL (3.5-5.2); Alkaline Phosphatase 106 U/L (35-105); Anion Gap 20.1 (5-19); Aspartate Amino Transferase 20 U/L (0-32); Blood Urea Nitrogen 23 mg/dL (6-20); Calcium 9.1 mg/dL (8.5-10.5); Carbon Dioxide 19 mmol/L (22-29); Chloride 100 mmol/L (98-107); Globulin 2.7 g/dL (1.3-4.6); Glucose 136 mg/dL (65-115); Osmolality Calculated 288 mOsm/kg (285-295); Potassium 3.1 mmol/L (3.5-5.1); Sodium 136 mmol/L (136-145); Total Bilirubin 1.3 mg/dL (0.15-1.2); Total Protein 6.9 g/dL (6.6-8.7)
[2023-03-11 15:10] LABS: Ammonia 35 umol/L (11-51)
[2023-03-11 15:11] LABS: Troponin(5th) Baseline 10 ng/L (0-10)
[2023-03-11 15:13] LABS: Acetaminophen < 5.0 ug/mL (10-30); Alcohol Level < 10 mg/dL (0-10); Salicylate < 0.3 mg/dL (3-10)
[2023-03-11 15:20] LABS: Prolactin 226.1 ng/mL (4.8-23.3)
[2023-03-11 15:24] LABS: ABG PCO2 39.2 mmHg (35-45); ABG PH Result 7.31 (7.35-7.45); Arterial Blood Gas Hematocrit 37.2 % (37-47); Base Excess ABG -5.9 mmol/L (-2.0-2.0); Blood Gas Allen Test Pos; Blood Gas Operator Identificat WALCI; Blood Gas Sample Site Radial, left; Blood Gas Sample Type Arterial; Carboxyhemoglobin 1.9 %THgb (0.4-20.1); HCO3 ABG 19.9 mmol/L (22-26); HGB O2 Sat 95.4 % (95-100); Ionized Calcium Level - ABG 1.2 mmol/L (1.1-1.4); Methemoglobin 0.5 % (0.4-1.5); Oxygen Device NC; Oxygen Saturation ABG 97.8; Potassium Level - ABG 2.6 mmol/L (3.5-5.0); Total Hemoglobin 12.2 g/dL (12-16)
[2023-03-11 16:20] LABS: Lactic Sepsis W/Reflex 2.3 mmol/L (0.5-2.2)
--- NOTE | 2023-03-11 16:23 | ECG_ITS ---
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 Measurements Intervals [place] Rate: 105 P: 71 MT: 148 QRS: 74 QRSD: 81 T: 71 QT: 391 QTc: 517 Interpretive Statements SINUS TACHYCARDIA Compared to ECG 03/11/2023 14:38:43 No significant changes Electronically Signed On 03-12-2023 22:59:01 CDT by Ney Acosta M.D. [id number]
[2023-03-11 16:27] LABS: Procalcitonin 0.11 ng/mL (0-0.5)
--- NOTE | 2023-03-11 17:11 | PC.NURSE ---
ARBORIST CLIMBER INSTRUCTED TO INFORM ICU RECEIVING NURSE OF NEED TO ASK PT IF SHE WOULD LIKE TO PURSUE A SANE NURSE EXAM WHEN PT BECOMES ALERT AND ORIENTED. AT THAT TIME, DEPENDENT UPON ANSWER, PT NURSE AND PHYSICIAN WILL NEED TO CONSIDER XFER TO APPROPRIATE LEVEL OF CARE, PER ARBORIST CLIMBER. THIS INFORMATION VERBALIZED TO ICU CHARGE NURSE. ICU CHARGE NURSE VERBALIZED UNDERSTANDING.
[2023-03-11 17:26] LABS: Troponin 5 2HR 19.81 ng/L (0-10); Troponin 5 2HR Delta 9.81 ABS# (0-10)
[2023-03-11 17:52] LABS: Reflex Lactate Order REFLEX LACTIC ORDERD
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
--- NOTE | 2023-03-11 18:13 | CTR_ITS ---
PROCEDURE INFORMATION: Exam: CT Lumbar Spine Without Contrast Exam date and time: 03/11/2023 6:26 PM Age: 52 years old Clinical indication: Injury or trauma; Fall; Blunt trauma (contusions or hematomas); Additional info: Evalaute for injuries TECHNIQUE: Imaging protocol: Computed tomography of the lumbar spine without contrast. Radiation optimization: All CT scans at this facility use at least one of these dose optimization techniques: automated exposure control; mA and/or kV adjustment per patient size (includes targeted exams where dose is matched to clinical indication); or iterative reconstruction. REPORTING DATA: Count of CT and Cardiac NM exams in prior 12 months: This patient has received 3 known CTs and 0 known cardiac nuclear medicine studies in the 12 months prior to the current study. COMPARISON: CT abdomen pelvis w con* [id number] 09/17/2022 3:05 AM RADIATION DOSE METRICS: Total DLP (mGy-cm): 2389.22 FINDINGS: Bones/joints: Unchanged L4-L5 anterolisthesis. There is lower lumbar spinal degenerative disc disease present. Severe L4-L5 spinal canal stenosis. No acute displaced fracture. Soft tissues: Unremarkable. CT/CT lumbar spine recon [id number] IMPRESSION: No acute lumbar spine fracture identified.
--- NOTE | 2023-03-11 18:13 | CTR_ITS ---
PROCEDURE INFORMATION: Exam: CT Cervical Spine Without Contrast Exam date and time: 03/11/2023 6:22 PM Age: 52 years old Clinical indication: Injury or trauma; Fall; Blunt trauma; Additional info: Evalute for fracture TECHNIQUE: Imaging protocol: Computed tomography of the cervical spine without contrast. Radiation optimization: All CT scans at this facility use at least one of these dose optimization techniques: automated exposure control; mA and/or kV adjustment per patient size (includes targeted exams where dose is matched to clinical indication); or iterative reconstruction. REPORTING DATA: Count of CT and Cardiac NM exams in prior 12 months: This patient has received 3 known CTs and 0 known cardiac nuclear medicine studies in the 12 months prior to the current study. COMPARISON: CT head wo con* [id number] 03/11/2023 3:39 PM RADIATION DOSE METRICS: Total DLP (mGy-cm): 433.88 FINDINGS: Bones/joints: Near anatomic alignment. No acute fracture. Multilevel degenerative changes are present. Lungs: Emphysema partially imaged in the lung apices. Soft tissues: Unremarkable. CT/CT cervical spin wo con* [id number] IMPRESSION: No acute osseous injury.
--- NOTE | 2023-03-11 18:13 | CTR_ITS ---
PROCEDURE INFORMATION: Exam: CT Thoracic Spine Without Contrast Exam date and time: 03/11/2023 6:26 PM Age: 52 years old Clinical indication: Injury or trauma; Fall; Blunt trauma (contusions or hematomas); Additional info: Evalaute for injuries TECHNIQUE: Imaging protocol: Computed tomography of the thoracic spine without contrast. Radiation optimization: All CT scans at this facility use at least one of these dose optimization techniques: automated exposure control; mA and/or kV adjustment per patient size (includes targeted exams where dose is matched to clinical indication); or iterative reconstruction. REPORTING DATA: Count of CT and Cardiac NM exams in prior 12 months: This patient has received 3 known CTs and 0 known cardiac nuclear medicine studies in the 12 months prior to the current study. COMPARISON: CT cervical spin wo con* [id number] 03/11/2023 6:22 PM RADIATION DOSE METRICS: Total DLP (mGy-cm): 2389.22 FINDINGS: Bones/joints: Near anatomic alignment. No acute fracture. Multilevel degenerative changes are present. Soft tissues: Unremarkable. Lungs: Infiltrates in the lower lobes again visualized. CT/CT thoracic spine recon [id number] IMPRESSION: No acute osseous injury.
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
[2023-03-11] MEDS: iohexol 350 mg/mL 500 mL Btl (per mL) IV (18:40)
[2023-03-11] MEDS: dextrose 5%-sod chloride 0.9% 1,000 ML 100 ML IV (19:17)
[2023-03-11] MEDS: enoxaparin 40 mg/0.4 mL Syringe SUBCUT (19:18)
[2023-03-11] MEDS: piperacillin-tazobactam 3.375 GM in sodium chloride 0.9% (plus) 50 ML IV (19:30)
[2023-03-11] MEDS: vancomycin 1,500 MG/300 ML PIGGYBACK 200 MG IV (19:52)
--- NOTE | 2023-03-11 20:27 | ECG_ITS ---
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 Measurements Intervals [place] Rate: 93 P: 65 [place]: 148 QRS: 51 QRSD: 85 T: 49 QT: 428 QTc: 533 Interpretive Statements SINUS RHYTHM PROLONGED QT INTERVAL Compared to ECG 03/11/2023 16:23:08 Prolonged QT interval now present Sinus tachycardia no longer present Electronically Signed On 03-12-2023 22:58:48 CDT by Ney Acosta M.D. [id number]
[2023-03-11 20:45] LABS: Lactic Acid level (Lactate) 1.2 mmol/L (0.5-2.2)
[2023-03-11 21:39] LABS: Troponin 5 6HR 17.16 ng/L (0-10)
[2023-03-11 21:40] LABS: Troponin 5 6HR Delta 7.16 ng/L (0-12)
[2023-03-12] VITALS (49 sets, daily range): BP systolic 81–114; BP diastolic 46–81; PULSE 80–103; RESP 13–27; TEMP 36.7–37.4; O2SAT 90–98
[2023-03-12] MEDS: piperacillin-tazobactam 3.375 GM in sodium chloride 0.9% (plus) 50 ML IV ×2 (03:25→12:00)
--- NOTE | 2023-03-12 03:53 | PC.NURSE ---
Patient begging to wake up. Opens eyes when name called. When asked if she knows where she is at states I think I am at the hospital . Asked patient other questions about events leading to coming to the hospital and other orientation questions patient just keeps repeating I think I am at the hospital .
[2023-03-12 04:22] LABS: ABG PCO2 39.6 mmHg (35-45); ABG PH Result 7.34 (7.35-7.45); Arterial Blood Gas Hematocrit 34.9 % (37-47); Blood Gas Allen Test Pos; Blood Gas Sample Type Arterial; HCO3 ABG 21.5 mmol/L (22-26); PO2 ABG 74.9 mmHg (80.0-100.0)
[2023-03-12 04:23] LABS: Blood Gas Operator Identificat ED; Blood Gas Sample Site Radial, right; Oxygen Device NC
[2023-03-12] MEDS: dextrose 5%-sod chloride 0.9% 1,000 ML 100 ML IV ×3 (04:32→23:26)
[2023-03-12 05:26] LABS: Basophils # 0.1 10^3/uL (0.0-0.1); Basophils % 0.7 %; Eosinophils # 0.2 10^3/uL (0.0-0.8); Eosinophils % 2.1 %; Hematocrit 35.5 % (36-47); Lymphocytes # 2.3 10^3/uL (0.8-4.8); Lymphocytes % 27.2 %; Mean Corpuscular HGB Conc 31.8 g/dL (30-55); Mean Corpuscular Hemoglobin 31.7 pg (27-33); Mean Corpuscular Volume 99.7 fl (85-98); Mean Platelet Volume 9.6 fL (7.4-10.4); Monocytes # 0.9 10^3/uL (0.2-0.9); Monocytes % 10.8 %; Neutrophils # 5.08 10^3/uL (1.8-7.7); Nucleated Red Blood Cells % 0 %; Platelet Count 268 10^3/cmm (157-399); Red Blood Count 3.56 10^6/uL (3.85-5.65); Red Cell Distribution Width 13.6 % (12.1-15.1); White Blood Count 8.61 10^3/uL (3.29-11.43)
[2023-03-12 05:45] LABS: Alanine Aminotransferase 8 U/L (0-33); Albumin Level 3.2 g/dL (3.5-5.2); Alkaline Phosphatase 90 U/L (35-105); Aspartate Amino Transferase 16 U/L (0-32); Blood Urea Nitrogen 13 mg/dL (6-20); Carbon Dioxide 21 mmol/L (22-29); Chloride 111 mmol/L (98-107); Globulin 2.7 g/dL (1.3-4.6); Glomerular Filtration Rate 88.2 mL/min (90-130); Glucose 98 mg/dL (65-115); Osmolality Calculated 292 mOsm/kg (285-295); Sodium 141 mmol/L (136-145); Total Bilirubin 0.6 mg/dL (0.15-1.2); Total Protein 5.9 g/dL (6.6-8.7)
[2023-03-12] MEDS: vancomycin 1,500 MG/300 ML PIGGYBACK 200 MG IV (08:00)
[2023-03-12] MEDS: pantoprazole 40 mg SDV IVP (08:00)
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
[2023-03-12] MEDS: ipratropium-albuterol 3 mL Neb INHALATION ×2 (13:10→19:17)
[2023-03-12] MEDS: doxycycline 100 MG in sodium chloride 0.9% (plus) 100 ML IV (13:24)
[2023-03-12] MEDS: cefTRIAXone 1,000 MG in sodium chloride 0.9% (plus) 50 ML 100 MG IV (13:25)
[2023-03-12] MEDS: magnesium sulfate premix 1 GM/100 ML PIGGYBACK IV (13:25)
[2023-03-12 15:49] LABS: Adenovirus Not Detected (NOT DETECT); Chlamydia Pneumoniae Not Detected (NOT DETECT); Coronavirus 229E,HKU1,NL63,OC4 Not Detected (NOT DETECT); Human Metapneumovirus Not Detected (NOT DETECT); Human Rhinovirus/Enterovirus Not Detected (NOT DETECT); Influenza A Not Detected (NOT DETECT); Influenza A H1 Not Detected (NOT DETECT); Influenza A H1-2009 Not Detected (NOT DETECT); Influenza A H3 Not Detected (NOT DETECT); Influenza B Not Detected (NOT DETECT); Mycoplasma Pneumoniae Not Detected (NOT DETECT); Parainfluenza Virus Type 1 Not Detected (NOT DETECT); Parainfluenza Virus Type 2 Not Detected (NOT DETECT); Parainfluenza Virus Type 3 Not Detected (NOT DETECT); Parainfluenza Virus Type 4 Not Detected (NOT DETECT); Respiratory Syncytial Virus A Not Detected (NOT DETECT); Respiratory Syncytial Virus B Not Detected (NOT DETECT); SARS-COV-2 Not Detected (NOT DETECT)
--- NOTE | 2023-03-12 17:22 | ECG_ITS ---
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 Measurements Intervals [place] Rate: 80 P: 53 HI: 152 QRS: 37 QRSD: 90 T: 33 QT: 415 QTc: 482 Interpretive Statements SINUS RHYTHM Compared to ECG 03/11/2023 20:27:46 Prolonged QT interval no longer present Electronically Signed On 03-12-2023 22:57:29 CDT by Ney Acosta M.D. [id number]
[2023-03-12] MEDS: enoxaparin 40 mg/0.4 mL Syringe SUBCUT (17:34)
--- NOTE | 2023-03-12 20:55 | PC.NURSE ---
Patient's husbands backpack that was at patients bedside turned over to JR. marichuy
[2023-03-13] VITALS (28 sets, daily range): BP systolic 77–137; BP diastolic 53–100; PULSE 70–101; RESP 14–27; TEMP 36.6–36.9; O2SAT 90–97
[2023-03-13] MEDS: doxycycline 100 MG in sodium chloride 0.9% (plus) 100 ML IV ×2 (01:00→14:11)
[2023-03-13] MEDS: ipratropium-albuterol 3 mL Neb INHALATION ×2 (02:54→07:57)
[2023-03-13 03:04] LABS: Blood Gas Allen Test Pos; Blood Gas Sample Site Radial, right; Blood Gas Sample Type Arterial
[2023-03-13 03:21] LABS: ABG PCO2 39.2 mmHg (35-45); ABG PH Result 7.29 (7.35-7.45); PO2 ABG 72.5 mmHg (80.0-100.0)
[2023-03-13 03:22] LABS: Arterial Blood Gas Hematocrit 34.8 % (37-47); Base Excess ABG -7.2 mmol/L (-2.0-2.0); HCO3 ABG 18.9 mmol/L (22-26); Oxygen Device nc
--- NOTE | 2023-03-13 04:00 | ECG_ITS ---
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 Measurements Intervals [place] Rate: 94 P: 45 OR: 148 QRS: 13 QRSD: 85 T: 39 QT: 368 QTc: 462 Interpretive Statements SINUS RHYTHM NONSPECIFIC T-WAVE ABNORMALITY Compared to ECG 03/12/2023 14:21:32 T-wave abnormality now present Electronically Signed On 03-13-2023 10:00:29 CDT by Gege Blackwell M.D. [id number]
[2023-03-13 04:15] LABS: Basophils # 0.1 10^3/uL (0.0-0.1); Basophils % 1.1 %; Eosinophils # 0.3 10^3/uL (0.0-0.8); Eosinophils % 4.4 %; Hematocrit 35.6 % (36-47); Lymphocytes # 2.5 10^3/uL (0.8-4.8); Lymphocytes % 35.1 %; Mean Corpuscular HGB Conc 31.2 g/dL (30-55); Mean Corpuscular Hemoglobin 31.7 pg (27-33); Mean Corpuscular Volume 101.7 fl (85-98); Mean Platelet Volume 9.9 fL (7.4-10.4); Monocytes # 0.8 10^3/uL (0.2-0.9); Monocytes % 10.9 %; Neutrophils # 3.49 10^3/uL (1.8-7.7); Neutrophils % 48.4 %; Nucleated Red Blood Cells % 0 %; Platelet Count 257 10^3/cmm (157-399); Red Cell Distribution Width 13.9 % (12.1-15.1); White Blood Count 7.23 10^3/uL (3.29-11.43)
[2023-03-13 04:30] LABS: Alanine Aminotransferase 7 U/L (0-33); Albumin Level 3.2 g/dL (3.5-5.2); Alkaline Phosphatase 85 U/L (35-105); Anion Gap 9.4 (5-19); Aspartate Amino Transferase 16 U/L (0-32); Blood Urea Nitrogen 9 mg/dL (6-20); Calcium 7.9 mg/dL (8.5-10.5); Carbon Dioxide 20 mmol/L (22-29); Chloride 113 mmol/L (98-107); Globulin 2.6 g/dL (1.3-4.6); Glomerular Filtration Rate 88.2 mL/min (90-130); Glucose 95 mg/dL (65-115); Magnesium 2.2 mg/dL (1.7-2.3); Osmolality Calculated 286 mOsm/kg (285-295); Potassium 3.4 mmol/L (3.5-5.1); Sodium 139 mmol/L (136-145); Total Bilirubin 0.3 mg/dL (0.15-1.2); Total Protein 5.8 g/dL (6.6-8.7)
[2023-03-13 04:51] LABS: HIV 1 & 2 Antibody Non-Reactive (Non-Reactiv); HIV 1 & 2 Antigen Non-Reactive (Non-Reactiv)
[2023-03-13 04:59] LABS: Hepatitis A Antibody IgM Non-Reactive (Nonreactive); Hepatitis B Core AB, Total Non-Reactive (Nonreactive); Hepatitis B Surface AB 3.5 (11.5-1000); Hepatitis B Surface Antigen Non-Reactive (Nonreactive)
[2023-03-13 05:37] LABS: Hepatitis C Virus Antibody Reactive (Nonreactive)
[2023-03-13] MEDS: pantoprazole 40 mg SDV IVP (09:05)
[2023-03-13] MEDS: dextrose 5%-sod chloride 0.9% 1,000 ML 100 ML IV (09:15)
[2023-03-13] MEDS: cefTRIAXone 1,000 MG in sodium chloride 0.9% (plus) 50 ML 100 MG IV (14:11)
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
[2023-03-13] MEDS: enoxaparin 40 mg/0.4 mL Syringe SUBCUT (18:27)
[2023-03-14] VITALS (11 sets, daily range): BP systolic 102–142; BP diastolic 52–89; PULSE 78–98; RESP 16–22; TEMP 36.6–37; O2SAT 90–93; BMI 34.3
[2023-03-14] MEDS: doxycycline 100 MG in sodium chloride 0.9% (plus) 100 ML IV (00:52)
--- NOTE | 2023-03-14 02:50 | P.TS_ITS ---
Transfer Summary Providers Date of Admission: 03/11/23 18:16 Date of Discharge/Transfer: 03/14/23 Attending Provider at Admission: Bossman Roberts MD Attending Provider at Transfer: Juan Jon MD Primary Care Provider: Kevin Cool MD Transfer Plans: Anticipated date of transfer: 03/14/23 . Diagnoses at Discharge Discharge Diagnosis (1) Altered mental status: Status: Acute Qualifiers: Altered mental status type: somnolence Qualified Code(s): R40.0 - Somnolence (2) Pneumonia: Status: Acute (3) Hypoxia: Status: Acute (4) Methamphetamine use disorder, severe: Status: Acute (5) Akathisia: Status: Acute (6) Prolonged QT interval: Status: Acute (7) Hypokalemia: Status: Acute (8) HCV antibody positive: Status: Acute (9) Homeless family: Status: Acute Reason for Visit Reason for Visit AMS Hospital Course Hospital Course Uneventful Physical Exam Urinary Catheter Management: Tristan: Cath Placed During This Visit: yes Reason for Continuing Indwelling Catheter: Accurate Measurement of Urinary Output in Critically Ill Patients Urinary Catheter Date of Insertion: 03/11/23 Urinary Catheter Time of Insertion: 14:42 TS Data Studies Completed and Pending Pending at discharge Category Date Time Status Blood Culture Stat Lab 03/11/23 17:05 Results CBC Auto Diff [Complete Blood Count w/Auto] AM LABS Lab 03/14/23 04:00 Ordered CMP [Comprehensive Metabolic Panel] AM LABS Lab 03/14/23 04:00 Ordered Hepatitis C RNA Viral Load Qnt Routine Lab 03/13/23 05:38 Received MRSA [Methicillin Resistant S.aureu] Routine Lab 03/12/23 20:30 Received Magnesium AM LABS Lab 03/14/23 04:00 Ordered Phosphorus AM LABS Lab 03/14/23 04:00 Ordered RPR with Reflex to Titer AM LABS Lab 03/14/23 04:00 Ordered Labs from last 24 hours 03/13/23 03/13/23 03/13/23 05:38 04:00 03:40 WBC RBC Hgb Hct MCV MCH MCHC RDW Plt Count MPV Neut % (Auto) Lymph % (Auto) [place] % (Auto) Eos % (Auto) Baso % (Auto) Neut # (Auto) Lymph # (Auto) [place] # (Auto) Eos # (Auto) Baso # (Auto) Nucleated RBC % (auto) Nucleated RBCs # Specimen Type Arterial Sample Site Radial, right ABG pH 7.29 L ABG pCO2 39.2 ABG pO2 72.5 L ABG HCO3 18.9 L ABG Base Excess -7.2 L Ha Test Pos Hematocrit 34.8 L O2 Delivery Device nc FiO2 32.0 Seismic Plotter ID ellpe Sodium Potassium Chloride Carbon Dioxide Anion Gap BUN Creatinine GFR Calculation Glucose Calculated Osmolality Calcium Magnesium Total Bilirubin AST ALT Alkaline Phosphatase Total Protein Albumin Globulin Hepatitis A IgM Ab Hep Bs Antigen Hep Bs Antibody Hep B Core Total Ab Hepatitis C Antibody HCV RNA (PCR) IUs/ml Pending HCV RNA (PCR) IU log10 Pending HIV 1&2 Ab & HIV 1 Ag Non-reactive HIV 1&2 Antibody Non-reactive 03/13/23 03/13/23 03/13/23 03:40 03:40 03:40 WBC 7.23 RBC 3.50 L Hgb 11.10 L Hct 35.6 L MCV 101.7 H MCH 31.7 MCHC 31.2 RDW 13.9 Plt Count 257 MPV 9.9 Neut % (Auto) 48.4 Lymph % (Auto) 35.1 [place] % (Auto) 10.9 Eos % (Auto) 4.4 Baso % (Auto) 1.1 Neut # (Auto) 3.49 Lymph # (Auto) 2.5 [place] # (Auto) 0.8 Eos # (Auto) 0.3 Baso # (Auto) 0.1 Nucleated RBC % (auto) 0 Nucleated RBCs # 0.0 Specimen Type Sample Site ABG pH ABG pCO2 ABG pO2 ABG HCO3 ABG Base Excess Ha Test Hematocrit O2 Delivery Device FiO2 Seismic Plotter ID Sodium [email or web address] Potassium 3.4 L Chloride 113 H Carbon Dioxide 20 L Anion Gap 9.4 BUN 9 Creatinine 0.7 GFR Calculation 88.2 L Glucose 95 Calculated Osmolality 286 Calcium 7.9 L Magnesium 2.2 Total Bilirubin 0.3 AST 16 ALT 7 Alkaline Phosphatase 85 Total Protein 5.8 L Albumin 3.2 L Globulin 2.6 Hepatitis A IgM Ab Non-reactive Hep Bs Antigen Non-reactive Hep Bs Antibody 3.5 L Hep B Core Total Ab Non-reactive Hepatitis C Antibody Reactive H HCV RNA (PCR) IUs/ml HCV RNA (PCR) IU log10 HIV 1&2 Ab & HIV 1 Ag HIV 1&2 Antibody Completed Studies During Hospitalization Category Date Time Status CT cervical spine wo con [CT cervical spin wo con* Cat Scan 03/11/23 18:13 Completed [id number]] Routine CT head wo con* [id number] Stat Cat Scan 03/11/23 14:[address] abdomen pelvis [CT angio chest w abd pel w Cat Scan 03/11/23 18:06 Completed con] Routine XR chest 1V portable [id number] Stat Exams 03/11/23 14:22 Completed Laboratory Last Values WBC 7.23 10^3/uL (3.29-11.43) 03/13/23 03:40 RBC 3.50 10^6/uL (3.85-5.65) L 03/13/23 03:40 Hgb 11.10 g/dL (11.27-16.99) L 03/13/23 03:40 Hct 35.6 % (36-47) L 03/13/23 03:40 MCV 101.7 fl (85-98) H 03/13/23 03:40 MCH 31.7 pg (27-33) 03/13/23 03:40 MCHC 31.2 g/dL (30-55) 03/13/23 03:40 RDW 13.9 % (12.1-15.1) 03/13/23 03:40 Plt Count 257 10^3/cmm (157-399) 03/13/23 03:40 MPV 9.9 fL (7.4-10.4) 03/13/23 03:40 Neut % (Auto) 48.4 % 03/13/23 03:40 Lymph % (Auto) 35.1 % 03/13/23 03:40 [place] % (Auto) 10.9 % 03/13/23 03:40 Eos % (Auto) 4.4 % 03/13/23 03:40 Baso % (Auto) 1.1 % 03/13/23 03:40 Neut # (Auto) 3.49 10^3/uL (1.8-7.7) 03/13/23 03:40 Lymph # (Auto) 2.5 10^3/uL (0.8-4.8) 03/13/23 03:40 [place] # (Auto) 0.8 10^3/uL (0.2-0.9) 03/13/23 03:40 Eos # (Auto) 0.3 10^3/uL (0.0-0.8) 03/13/23 03:40 Baso # (Auto) 0.1 10^3/uL (0.0-0.1) 03/13/23 03:40 Nucleated RBC % (auto) 0 % 03/13/23 03:40 Nucleated RBCs # 0.0 /100WBC 03/13/23 03:40 PT 15.70 SECONDS (12.1-14.9) H 03/11/23 14:40 INR 1.21 (0.8-1.2) H 03/11/23 14:40 Specimen Type Arterial 03/13/23 04:00 Sample Site Radial, right 03/13/23 04:00 ABG pH 7.29 (7.35-7.45) L 03/13/23 04:00 ABG pCO2 39.2 mmHg (35-45) 03/13/23 04:00 ABG pO2 72.5 mmHg (80.0-100.0) L 03/13/23 04:00 ABG HCO3 18.9 mmol/L (22-26) L 03/13/23 04:00 ABG O2 Saturation 97.8 03/11/23 15:13 ABG Base Excess -7.2 mmol/L (-2.0-2.0) L 03/13/23 04:00 Ha Test Pos 03/13/23 04:00 A-a O2 Gradient 0.0 mmHg (5-10) L 03/11/23 15:13 Hematocrit 34.8 % (37-47) L 03/13/23 04:00 Hgb O2 Saturation 95.4 % (95-100) 03/11/23 15:13 Carboxyhemoglobin 1.9 %THgb (0.4-20.1) 03/11/23 15:13 Methemoglobin 0.5 % (0.4-1.5) 03/11/23 15:13 Total Hemoglobin 12.2 g/dL (12-16) 03/11/23 15:13 Sodium 138.0 mmol/L (131-143) 03/11/23 15:13 Potassium 2.6 mmol/L (3.5-5.0) L 03/11/23 15:13 Glucose 108.0 mg/dL (70-115) 03/11/23 15:13 Ionized Calcium 1.2 mmol/L (1.1-1.4) 03/11/23 15:13 O2 Delivery Device nc 03/13/23 04:00 O2 Liters/Min 2.0 % 03/12/23 04:12 FiO2 32.0 % 03/13/23 04:00 Seismic Plotter ID [email or web address] 03/13/23 04:00 Sodium 139 mmol/L (136-145) 03/13/23 03:40 Potassium 3.4 mmol/L (3.5-5.1) L 03/13/23 03:40 Chloride 113 mmol/L (98-107) H 03/13/23 03:40 Carbon Dioxide 20 mmol/L (22-29) L 03/13/23 03:40 Anion Gap 9.4 (5-19) 03/13/23 03:40 BUN 9 mg/dL (6-20) 03/13/23 03:40 Creatinine 0.7 mg/dL (0.5-0.9) 03/13/23 03:40 GFR Calculation 88.2 mL/min (90-130) L 03/13/23 03:40 Glucose 95 mg/dL (65-115) 03/13/23 03:40 Calculated Osmolality 286 mOsm/kg (285-295) 03/13/23 03:40 Lactic Acid 2.3 mmol/L (0.5-2.2) H 03/11/23 14:40 Lactic Acid (Sepsis) 1.2 mmol/L (0.5-2.2) 03/11/23 20:05 Calcium 7.9 mg/dL (8.5-10.5) L 03/13/23 03:40 Magnesium 2.2 mg/dL (1.7-2.3) 03/13/23 03:40 Total Bilirubin 0.3 mg/dL (0.15-1.2) 03/13/23 03:40 AST 16 U/L (0-32) 03/13/23 03:40 ALT 7 U/L (0-33) 03/13/23 03:40 Alkaline Phosphatase 85 U/L (35-105) 03/13/23 03:40 Ammonia 35 umol/L (11-51) 03/11/23 14:40 Troponin T Baseline 10 ng/L (0-10) 03/11/23 14:40 Troponin T 120 Minute 19.81 ng/L (0-10) H 03/11/23 16:55 Delta Troponin T 9.81 ABS# (0-10) 03/11/23 16:55 Troponin T Hi Sens 6Hr 17.16 ng/L (0-10) H 03/11/23 20:50 Troponin T Hi Sens 6Hr Delta 7.16 ng/L (0-12) 03/11/23 20:50 Total Protein 5.8 g/dL (6.6-8.7) L 03/13/23 03:40 Albumin 3.2 g/dL (3.5-5.2) L 03/13/23 03:40 Globulin 2.6 g/dL (1.3-4.6) 03/13/23 03:40 Procalcitonin 0.11 ng/mL (0-0.5) 03/11/23 14:40 Prolactin 226.1 ng/mL (4.8-23.3) H 03/11/23 14:40 Urine Color Yellow (Yellow) 03/11/23 14:41 Urine Appearance Clear (CLEAR) 03/11/23 14:41 Urine pH 5 (5-7) 03/11/23 14:41 Ur Specific Ware 1.025 (1.005-1.030) 03/11/23 14:41 Urine Protein Trace (Negative) 03/11/23 14:41 Urine Glucose (UA) Norm (Normal) 03/11/23 14:41 Urine Ketones 1+ (Negative) H 03/11/23 14:41 Urine Blood Neg (Negative) 03/11/23 14:41 Urine Nitrate Negative (Negative) 03/11/23 14:41 Urine Bilirubin Neg (Negative) 03/11/23 14:41 Urine Urobilinogen 1 mg/dL (Negative) H 03/11/23 14:41 Ur Leukocyte Esterase Trace (Negative) H 03/11/23 14:41 Urine RBC 0-4 /hpf (0-2) H 03/11/23 14:41 Urine WBC 0-4 /hpf (0-5) H 03/11/23 14:41 Ur Squamous Epith Cells 0-4 /hpf (0-5) H 03/11/23 14:41 Amorphous Sediment Not Reportable 03/11/23 14:41 Urine Bacteria Trace /hpf (NONE) 03/11/23 14:41 Urine Mucus Trace /hpf 03/11/23 14:41 Nasal Influ A H1 2009 PCR Not detected (NOT DETECT) 03/12/23 13:50 Salicylates < 0.3 mg/dL (3-10) L 03/11/23 14:40 Urine Opiates Screen Negative ng/mL (Negative) 03/11/23 14:41 Acetaminophen < 5.0 ug/mL (10-30) L 03/11/23 14:40 Ur Barbiturates Screen Negative ng/mL (Negative) 03/11/23 14:41 Ur Phencyclidine Scrn Negative ng/mL (Negative) 03/11/23 14:41 Ur Amphetamines Screen Positive ng/mL (Negative) H 03/11/23 14:41 U Benzodiazepines Scrn Negative ng/mL (Negative) 03/11/23 14:41 Urine Cocaine Screen Negative ng/mL (Negative) 03/11/23 14:41 U Marijuana (THC) Screen Negative ng/mL (Negative) 03/11/23 14:41 Ethyl Alcohol < 10 mg/dL (0-10) 03/11/23 14:40 Adenovirus (PCR) Not detected (NOT DETECT) 03/12/23 13:50 C. pneumoniae DNA (PCR) Not detected (NOT DETECT) 03/12/23 13:50 Coronavirus 229E (PCR) Not detected (NOT DETECT) 03/12/23 13:50 Hepatitis A IgM Ab Non-reactive (Nonreactive) 03/13/23 03:40 Hep Bs Antigen Non-reactive (Nonreactive) 03/13/23 03:40 Hep Bs Antibody 3.5 (11.5-1000) L 03/13/23 03:40 Hep B Core Total Ab Non-reactive (Nonreactive) 03/13/23 03:40 Hepatitis C Antibody Reactive (Nonreactive) H 03/13/23 03:40 HIV 1&2 Ab & HIV 1 Ag Non-reactive (Non-Reactiv) 03/13/23 03:40 HIV 1&2 Antibody Non-reactive (Non-Reactiv) 03/13/23 03:40 Human Metapneumovir PCR Not detected (NOT DETECT) 03/12/23 13:50 Influenza A (H1) PCR Not detected (NOT DETECT) 03/12/23 13:50 Influenza A (H3) PCR Not detected (NOT DETECT) 03/12/23 13:50 Influenza Type A (PCR) Not detected (NOT DETECT) 03/12/23 13:50 Influenza Type B (PCR) Not detected (NOT DETECT) 03/12/23 13:50 M. pneumoniae (PCR) Not detected (NOT DETECT) 03/12/23 13:50 Parainfluenza 1 (PCR) Not detected (NOT DETECT) 03/12/23 13:50 Parainfluenza 2 (PCR) Not detected (NOT DETECT) 03/12/23 13:50 Parainfluenza 3 (PCR) Not detected (NOT DETECT) 03/12/23 13:50 Parainfluenza 4 (PCR) Not detected (NOT DETECT) 03/12/23 13:50 RSV Type A (PCR) Not detected (NOT DETECT) 03/12/23 13:50 RSV Type B (PCR) Not detected (NOT DETECT) 03/12/23 13:50 Entero/Rhino (PCR) Not detected (NOT DETECT) 03/12/23 13:50 SARS-CoV-2 (PCR) Not detected (NOT DETECT) 03/12/23 13:50 Radiology Impressions Chest X-Ray 03/11/23 14:22 IMPRESSION: Patchy right lower lobe infiltrate or atelectasis. Correlate for pulmonary infection. Head CT 03/11/23 14:22 IMPRESSION: No acute intracranial abnormality. Chest/Abdomen/Pelvis CT 03/11/23 18:06 IMPRESSION: 1. No acute traumatic findings in the chest. 2. Minimal [id number]-left lower lobe infiltrates or atelectasis. Correlate for pneumonia. IMPRESSION: 1. No acute traumatic findings in the abdomen/pelvis. 2. Underdistention versus wall thickening in the distal colon. Correlate for possible colitis. Cervical Spine CT 03/11/23 18:13 IMPRESSION: No acute osseous injury. Lumbar Spine CT 03/11/23 18:13 IMPRESSION: No acute lumbar spine fracture identified. Thoracic Spine CT 03/11/23 18:13 IMPRESSION: No acute osseous injury. Recent Clincial Data Last Vital Signs Temp 98.6 F 03/14/23 01:00 Pulse 87 03/14/23 02:00 Resp 21 H 03/14/23 02:00 BP 128/79 03/14/23 02:00 Pulse Ox 90 03/14/23 02:00 O2 Del Method Room Air 03/14/23 01:31 O2 Flow Rate 2 03/13/23 19:29 Vital Signs Temp Pulse Resp BP Pulse Ox O2 Del Method O2 Flow Rate 03/14/23 02:00 87 21 H 128/79 90 03/14/23 01:31 88 18 91 Room Air 03/14/23 01:00 98.6 F 97 18 115/72 93 03/14/23 00:00 87 19 H 112/66 91 03/13/23 23:00 89 20 H 130/79 91 03/13/23 22:00 87 26 H 128/86 96 03/13/23 22:00 86 03/13/23 21:00 91 25 H 122/77 95 03/13/23 20:00 98.3 F 93 27 H 127/87 94 Room Air 03/13/23 19:00 90 21 H 107/71 96 03/13/23 19:29 101 H 18 97 Nasal Cannula 2 03/13/23 18:00 76 21 H 112/82 94 03/13/23 17:00 73 19 H 133/77 93 03/13/23 16:00 82 24 H 137/100 93 03/13/23 15:00 85 17 123/72 96 Intake & Output/Weight 03/11/23 03/12/23 03/13/23 03/14/23 06:59 06:59 06:59 06:59 Intake Total 2275 / 2275 2603.959 / 2603.959 2839.667 / 2839.667 Output Total 1425 / 1425 1050 / 1050 850 / 850 Balance 850 / 850 1553.959 / 2794.997 5596.667 / 1989.667 Weight 95.98 kg 97.25 kg Vitals Last Vital Signs Temp 98.6 F 03/14/23 01:00 Pulse 87 03/14/23 02:00 Resp 21 H 03/14/23 02:00 BP 128/79 03/14/23 02:00 Pulse Ox 90 03/14/23 02:00 O2 Del Method Room Air 03/14/23 01:31 O2 Flow Rate 2 03/13/23 19:29 TS Medications Medications Acetaminophen (Acetaminophen 325 Mg Tablet) 650 mg PO Q6H PRN PRN Reason: MILD PAIN Albuterol/Ipratropium (Ipratropium-Albuterol 3 Ml Neb) 3 ml INHALATION Q6H.RESP [facility] Last Admin: 03/14/23 01:32 Dose: Not Given Enoxaparin Sodium (Enoxaparin 40 Mg/0.4 Ml Syringe) 40 mg SUBCUT Q24H [facility] Last Admin: 03/13/23 18:27 Dose: 40 mg Ceftriaxone Sodium 1,000 mg/ (Sodium Chloride) 50 mls @ 100 mls/hr IV Q24H [facility]; Protocol Last Infusion: 03/13/23 14:41 Dose: Infused Doxycycline Hyclate 100 mg/ (Sodium Chloride) 100 mls @ 100 mls/hr IV Q12H [facility]; Protocol Last Infusion: 03/14/23 02:03 Dose: Infused Naloxone HCl (Naloxone 0.4 Mg/Ml Sdv) 0.1 mg IVP Q2M PRN PRN Reason: RESPIRATORY RATE < 8/MIN Pantoprazole Sodium (Pantoprazole 40 Mg Sdv) 40 mg IVP DAILY [facility] Last Admin: 03/13/23 09:05 Dose: 40 mg Thiamine HCl (Thiamine 100 Mg/Ml Sdv) 100 mg IVP DAILY [facility] Last Admin: 03/13/23 09:04 Dose: 100 mg Discontinued Medications Sodium Chloride (Sodium Chloride 0.9%) 1,000 mls @ 999 mls/hr IV .Q1H1M ONE Stop: 03/11/23 15:26 Last Infusion: 03/11/23 15:51 Dose: Infused Dextrose/Sodium Chloride (Dextrose 5%-Sod Chloride 0.9%) 1,000 mls @ 100 mls/hr IV .Q10H [facility] Last Admin: 03/13/23 09:15 Dose: 100 mls/hr Piperacillin Sod/Tazobactam (Sod 3.375 gm/ Sodium Chloride) 50 mls @ 12.5 mls/hr IV Q8H [facility] Last Infusion: 03/12/23 13:23 Dose: Infused Vancomycin/PEG/NADA/Lysine/Water (Vancocin) 1,500 mg in 300 mls @ 200 mls/hr IV Q12H [facility] Last Infusion: 03/12/23 09:30 Dose: Infused Magnesium Sulfate/Dextrose (Magnesium Sulfate Premix) 1 gm in 100 mls @ 200 mls/hr IV ONCE ONE Stop: 03/12/23 13:30 Last Infusion: 03/12/23 13:55 Dose: Infused Iohexol (Iohexol 350 Mg/Ml 500 Ml Btl (Per Ml)) 0 ml IV ONCE ONE Stop: 03/11/23 18:40 Last Admin: 03/11/23 18:40 Dose: 100 ml Naloxone HCl (Naloxone 0.4 Mg/Ml Sdv) 0.4 mg IVP ONCE ONE Stop: 03/11/23 14:19 Last Admin: 03/11/23 14:19 Dose: 0.4 mg Naloxone HCl (Naloxone 0.4 Mg/Ml Sdv) Confirm Administered Dose 0.4 mg .ROUTE .STK-MED ONE Stop: 03/11/23 14:18 Last Admin: 03/11/23 14:45 Dose: Not Given Ondansetron HCl (Ondansetron 2 Mg/Ml Sdv 2 Ml) 4 mg IVP Q6H PRN PRN Reason: NAUSEA AND VOMITING Allergies No Known Allergies Allergy (Verified 03/11/23 14:25) Home Medications albuterol sulfate 90 mcg/actuation aerosol inhaler (ProAir HFA) 2 puff inhalation Q6H PRN Shortness Of Breath Or Wheezing 03/17/22 [History Confirmed 03/11/23] pantoprazole 40 mg tablet,delayed release (Protonix) 40 mg PO DAILY 12/26/22 [History Confirmed 03/11/23] hydroxyzine pamoate 25 mg capsule 50 mg PO Q6H PRN Anxiety 30 days #30 caps 12/29/22 [Rx Confirmed 03/11/23] lisinopril 20 mg tablet 20 mg PO DAILY 30 days #30 tabs 12/29/22 [Rx Confirmed 03/11/23] thiamine mononitrate (vit B1) 100 mg tablet (Vitamin B-1 (mononitrate)) 100 mg PO DAILY #30 tabs 12/29/22 [Rx Confirmed 03/11/23] mirtazapine 30 mg tablet 30 mg PO BEDTIME #30 tabs 02/13/23 [Rx Confirmed 03/11/23] paliperidone 3 mg tablet,extended release 24 hr (Invega) 3 mg PO QAM #30 tabs 02/13/23 [Rx Confirmed 03/11/23] topiramate 100 mg tablet (Topamax) 100 mg PO BID 30 days #60 tabs 02/13/23 [Rx Confirmed 03/11/23] atorvastatin 20 mg tablet 20 mg PO DAILY 03/11/23 [History Confirmed 03/11/23] fluoxetine 40 mg capsule (Prozac) 40 mg PO QAM 03/11/23 [History Confirmed 03/11/23] tiotropium bromide 2.5 mcg/actuation mist for inhalation (Spiriva Respimat) 2 puff inhalation DAILY 03/11/23 [History Confirmed 03/11/23] trazodone 50 mg tablet 50 mg PO BEDTIME PRN Sleep 03/11/23 [History Confirmed 03/11/23] Discharge Plan Discharge Patient Disposition: Xfer Short-Term Hosp Condition: Stable Prescriptions: No Action albuterol sulfate [ProAir HFA] 90 mcg/actuation HFA aerosol inhaler 2 puff inhalation Q6H PRN (Reason: Shortness Of Breath Or Wheezing) mirtazapine 30 mg tablet 30 mg PO BEDTIME Qty: 30 3RF paliperidone [Invega] 3 mg tablet extended release 24 hr 3 mg PO QAM Qty: 30 3RF Topamax 100 mg tablet 100 mg PO BID 30 Days Qty: 60 3RF atorvastatin 20 mg tablet 20 mg PO DAILY trazodone 50 mg tablet 50 mg PO BEDTIME PRN (Reason: Sleep) Spiriva Respimat 2.5 mcg/actuation mist 2 puff INHALATION DAILY Prozac 40 mg capsule 40 mg PO QAM pantoprazole [Protonix] 40 mg tablet,delayed release (DR/EC) 40 mg PO DAILY lisinopril 20 mg Tablet 20 mg PO DAILY 30 Days Qty: 30 1RF hydroxyzine pamoate 25 mg Capsule 50 mg PO Q6H PRN (Reason: Anxiety) 30 Days Qty: 30 1RF thiamine mononitrate (vit B1) [Vitamin B-1 (mononitrate)] 100 mg Tablet 100 mg PO DAILY Qty: 30 1RF Discharge Orders: Discharge Order (Routine); Ordered 03/14/23 Ordered By: Ning Campbell Referrals: Kevin Cool MD [Primary Care Provider] - Discharge Diet: Regular Discharge Activity: Increase activity as tolerated Patient Instructions: Hyponatremia (ED), Benzodiazepine Use Disorder (ED), Dementia (ED), Non-diabetic Hypoglycemia (ED), Hypoglycemia in a Person with Diabetes (ED), Concussion (ED), Alcohol Intoxication (ED), Subarachnoid Hemorrhage (GEN), Altered Mental Status (ED), Opioid Safety Transfer Attestations Time Spent in Transfer Care: less than 30 min Quality Metrics Clinical Quality Measures [ No reported AMI, CVA or VTE this stay] Coding Level of Care Code Acute Code for Chg Fwd Diagnoses Altered mental status R40.0 Altered mental status type: somnolence Pneumonia J18.9 Hypoxia R09.02 Methamphetamine use disorder, severe F15.20 Akathisia G25.71 Prolonged QT interval R94.31 Hypokalemia E87.6 HCV antibody positive R76.8 Homeless family Z59.00
[2023-03-14 04:26] LABS: Basophils # 0.1 10^3/uL (0.0-0.1); Basophils % 0.7 %; Eosinophils # 0.4 10^3/uL (0.0-0.8); Eosinophils % 5.2 %; Hematocrit 35.9 % (36-47); Lymphocytes % 35.1 %; Mean Corpuscular HGB Conc 31.2 g/dL (30-55); Mean Corpuscular Hemoglobin 31.3 pg (27-33); Mean Corpuscular Volume 100.3 fl (85-98); Mean Platelet Volume 9.8 fL (7.4-10.4); Monocytes # 0.9 10^3/uL (0.2-0.9); Monocytes % 10.1 %; Neutrophils # 4.12 10^3/uL (1.8-7.7); Neutrophils % 48.8 %; Nucleated Red Blood Cells % 0 %; Platelet Count 247 10^3/cmm (157-399); Red Blood Count 3.58 10^6/uL (3.85-5.65); Red Cell Distribution Width 13.7 % (12.1-15.1); White Blood Count 8.45 10^3/uL (3.29-11.43)
[2023-03-14 04:42] LABS: Alanine Aminotransferase 11 U/L (0-33); Albumin Level 2.9 g/dL (3.5-5.2); Alkaline Phosphatase 78 U/L (35-105); Anion Gap 10.5 (5-19); Aspartate Amino Transferase 12 U/L (0-32); Blood Urea Nitrogen 13 mg/dL (6-20); Calcium 8.4 mg/dL (8.5-10.5); Carbon Dioxide 20 mmol/L (22-29); Chloride 115 mmol/L (98-107); Globulin 2.8 g/dL (1.3-4.6); Glomerular Filtration Rate 75.6 mL/min (90-130); Glucose 95 mg/dL (65-115); Magnesium 1.8 mg/dL (1.7-2.3); Osmolality Calculated 294 mOsm/kg (285-295); Phosphorus 3.6 mg/dL (2.5-4.5); Potassium 3.5 mmol/L (3.5-5.1); Sodium 142 mmol/L (136-145); Total Bilirubin 0.2 mg/dL (0.15-1.2); Total Protein 5.7 g/dL (6.6-8.7)
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
--- NOTE | 2023-03-14 06:40 | PC.NURSE ---
Transfer [facility] called with bed number 3157 on unit 3[address] for patient at around 0230. Dr. Campbell notified; request made by Dr. Campbell to obtain the receiving physician's name. [facility] contacted for the following information: receiving physician is Dr. Juan Callejas and the Dr. ebonie Juarez conversation occurred the previous afternoon between Dr. Jon and Dr. Callejas. Dr. Campbell notified and order received to send patient by ground ambulance. Report called to Farheen Cohen RN at [facility] at [phone]. Remigio Carranza contacted for transportation service; transportation service unavailable until patient's insurance company contacted for preauthorization. Rachael Ng contacted for authorization and services approved; [facility] ambulance to be contacted by Rachael Ng. [facility] updated on awaiting patient transport.
--- NOTE | 2023-03-14 07:29 | PC.NURSE ---
Bedside report completed with Pao Maldonado RN.
--- NOTE | 2023-03-14 07:42 | PC.NURSE ---
Spoke with Erasmo at [facility] ambulance, BLS unit with two female personnel will be arriving to transport patient to [facility].
--- NOTE | 2023-03-14 08:22 | PC.NURSE ---
Patient in care of [facility] unit, in route to [facility].
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
--- NOTE | 2023-03-14 10:57 | PC.NURSE ---
Late Entry by nurse Suzanne Fournier RN reviewed. I concur with the statements and observations made when interviewing patient Annie Montoya together.
[2023-03-14 15:20] LABS: Methicillin-Resist S.aureu PCR NOT DETECTED (NOT DETECTED)
[2023-03-14 19:15] LABS: HEP C RNA Viral Load Quant <1.18 NOT DETECTED Log IU/mL (NOT DETECTED); HEP C RNA Viral Load Quant <15 NOT DETECTED IU/mL (NOT DETECTED)
[2023-03-15 14:53] LABS: RPR w(Moniotor) w/REFL Titer NON-REACTIVE (NON-REACTIVE)
== END 2023-03-14 08:30 | disposition home or self-care (01) | DRG 917 ==
LOC: ER 16:39 → ICU 17:50
PROVIDERS: Student in an Organized Health Care Education/Training Program; Admitting Provider Student in an Organized Health Care Education/Training Program; Emergency Provider Emergency Medicine; PCP Family Medicine; Visit Provider Internal Medicine
DX: T43.592A Poisoning by other antipsychotics and neuroleptics, intentional self-harm, initial encounter (principal); J18.9 Pneumonia, unspecified organism; F15.20 Other stimulant dependence, uncomplicated; Z59.02 Unsheltered homelessness; T76.21XA Adult sexual abuse, suspected, initial encounter; F33.9 Major depressive disorder, recurrent, unspecified; E87.20 Acidosis, unspecified; N39.0 Urinary tract infection, site not specified; T43.212A Poisoning by selective serotonin and norepinephrine reuptake inhibitors, intentional self-harm, initial encounter; T43.622A Poisoning by amphetamines, intentional self-harm, initial encounter; I95.89 Other hypotension; R00.0 Tachycardia, unspecified; F43.10 Post-traumatic stress disorder, unspecified; E86.0 Dehydration; Z79.891 Long term (current) use of opiate analgesic; F17.210 Nicotine dependence, cigarettes, uncomplicated; Z11.52 Encounter for screening for COVID-19; R94.31 Abnormal electrocardiogram [ECG] [EKG]; R76.8 Other specified abnormal immunological findings in serum; G25.71 Drug induced akathisia; E87.6 Hypokalemia; Y07.010 Husband, current, perpetrator of maltreatment and neglect
CPT/HCPCS: 36415; 36600; 51702; 70450; 71045; 71275; 72125; 74177; 80051; 80053; 80306; 80307; 81001; 82140; 82330; 82803; 82805; 83605; 83735; 84100; 84145; 84146; 84484; 85025; 85610; 86592; 86705; 86706; 86709; 86803; 87040; 87340; 87486; 87522; 87581; 87633; 87641; 87806; 93005; 94640; 96372; 96374; 96376; 99285; C9113; J0696; J1650; J2310; J2543; J3370; J3411; J3475; J3490; J7030; J7042; Q9967